=== PATIENT | female | born 1950 | race Caucasian/White ===

== ENCOUNTER 2023-12-20 10:37 | Outpatient (OUT) | payer MEDICARE, SELFPAY ==
--- NOTE | 2023-12-20 10:58 | ECG_ITS ---
[facility] Test Date: 2023-12-20 Pat Name: STEVO WATSON Department: Room: - Gender: Female Enologist: : [id number] Requested By: GABI CONRAD Order Number: [id number] Reading MD: EMELIA QUICK Measurements Intervals [place] Rate: 73 P: 32 FL: 155 QRS: -6 QRSD: 102 T: 21 QT: 365 QTc: 404 Interpretive Statements SINUS RHYTHM VOLTAGE CRITERIA FOR LVH [MEETS CRITERIA IN ONE OF: R(aVL), S(V1), R(V5), R(V5/V6)+S(V1)] Compared to ECG 08/20/2019 10:52:18 Left ventricular hypertrophy now present ST (T wave) deviation no longer present Electronically Signed On 12-20-2023 19:00:01 EDT by EMELIA QUICK
[2023-12-20 12:00] LABS: Basophils Percent Auto 0.7 % (0.2-2.0); Eosinophils Absolute Auto 0.3 10^3/uL (0.0-0.7); Eosinophils Percent Auto 5.6 % (0.9-7.0); Hematocrit 36.9 % (36.0-48.0); Hemoglobin 11.2 g/dL (12.0-16.0); Immature Granulocytes Abs Auto 0.03 10^3/uL (0.00-0.03); Immature Granulocytes Pct Auto 0.6 % (0.0-0.5); Lymphocytes Absolute Auto 1.2 10^3/uL (1.2-3.8); Mean Corpuscular HGB Conc 30.4 g/dL (29.9-35.2); Mean Corpuscular Volume 98.9 fL (81.0-99.0); Mean Platelet Volume 9.5 fL (9.5-13.5); Monocytes Absolute Auto 0.7 10^3/uL (0.3-0.8); Monocytes Percent Auto 13.5 % (1.7-12.0); Neutrophils Absolute Auto 3.1 10^3/uL (1.4-6.5); Neutrophils Percent Auto 56.6 % (43.0-75.0); Platelet Count 304 10^3/uL (150-450); Red Blood Count 3.73 10^6/uL (4.20-5.40); Red Cell Distribution Width 12.9 % (11.0-15.0); White Blood Count 5.4 10^3/uL (4.0-11.0)
[2023-12-20 12:07] LABS: INR 0.97; Partial Thromboplastin Time 27.6 sec (22.3-36.2); Prothrombin Time 10.3 sec (9.0-11.6)
[2023-12-20 12:33] LABS: Anion Gap 13.3; BUN Creatinine Ratio 29.8; Calcium 9.2 mg/dL (8.5-10.1); Carbon Dioxide 24.8 mmol/L (21.0-32.0); Chloride 104 mmol/L (98-107); Estimated GFR (African America >60 (>=60); Estimated GFR (Non-African Ame 58 (>=60); Glucose 103 mg/dL (74-106); Potassium 4.1 mmol/L (3.5-5.1); Sodium 138 mmol/L (136-145)
== END 2023-12-20 10:38 | disposition home or self-care (01) ==
LOC: PST 10:42
PROVIDERS: Visit Provider Urology
DX: Z01.812 Encounter for preprocedural laboratory examination (principal); Z01.818 Encounter for other preprocedural examination; N21.0 Calculus in bladder; R31.9 Hematuria, unspecified; K21.9 Gastro-esophageal reflux disease without esophagitis; N31.9 Neuromuscular dysfunction of bladder, unspecified; N30.20 Other chronic cystitis without hematuria
CPT/HCPCS: 80048; 85025; 85610; 85730; 93005

== ENCOUNTER 2023-12-26 09:24 | Day surgery (SDC) | payer MEDICARE, SELFPAY ==
[2023-12-20 11:32] VITALS: BP 160/78; PULSE 81; TEMP 36.3; O2SAT 95; BMI 36.2
[2023-12-26] VITALS (12 sets, daily range): BP systolic 109–170; BP diastolic 64–94; PULSE 75–94; TEMP 36.2–36.3; O2SAT 92–99
--- OUTSIDE RECORDS SUMMARY | 2023-12-26 09:40 | XMS_ITS | CCD ---
Author Organization [facility] CliniSyil Care Team Providers Care Press Feeder Broomcorn Name Role Phone STUART TERRY Admitting Unavailable TERRY, STUART Attending Unavailable TERRY, STUART Consulting Unavailable STANLEYMAIA Alvarado Consulting Unavailable Kylie Florez Primary Care Provider UnavailKYLIE Ramires Primary Care Physician [phone] KYLIE FLOREZ Referring Unavailable KYLIE FLOREZ Primary Care Unavailable Stuart TERRY Attending Unavailable TERRY, Stuart Pretty Attending Unavailable Orzech, Adele X Attending Unavailable Orzech, Adele X Attending Unavailable Orzech, Adele X Admitting Unavailable TERRY, Stuart Pretty Attending Unavailable PAULINE, KARLA Pinzon Attending Unavailable PAULINE, KARLA Pinzon Referring Unavailable TERRY, Stuart R Referring Unavailable TERRY, Stuart R Attending Unavailable TERRY, Stuart R Admitting Unavailable TERRY, Stuart R Attending Unavailable FARHAD RICE, KARLA Pinzon Admitting Unavailable FARHAD RICE, KARLA Pinzon Primary Care Unavailable FARHAD RICE, KARLA Pinzon Attending Unavailable FARHAD RICE, KARLA Pinzon Primary Care Unavailable FARHAD RICE, KARLA Pinzon Admitting Unavailable FRAHAD RICE, KARLA Pinzon Attending Unavailable FARHAD RICE, KARLA Pinzon Admitting Unavailable FARHAD RICE, KARLA Pinzon Primary Care Unavailable FARHAD RICE, KARLA Pinzon Attending Unavailable FARHAD RICE, KARLA Pinzon Admitting Unavailable FARHAD RICE, KARLA Pinzon Primary Care Unavailable FARHAD RICE, KARLA Pinzon Attending Unavailable FARHAD RICE, KARLA Pinzon Primary Care Unavailable Orzech ONYX CHIP TERRAZZO WORKER-ACTIVE DIRECTORY SYSTEMS ADMINISTRATOR-C, Adele Admitting Unavai lable Orzech ONYX CHIP TERRAZZO WORKER-ACTIVE DIRECTORY SYSTEMS ADMINISTRATOR-C, Adele Attending Dexter FLOREZ MD, KARLA Pinzon Primary Care Unavailable Orzech ONYX CHIP TERRAZZO WORKER-ACTIVE DIRECTORY SYSTEMS ADMINISTRATOR-C, Adele Admitting Unavai lable Orzech ONYX CHIP TERRAZZO WORKER-ACTIVE DIRECTORY SYSTEMS ADMINISTRATOR-C, Adele Attending Dexetr FLOREZ MD, KARLA Pinzon Primary Care Unavailable FARHAD RICE, KARLA Pinzon Attending Unavailable Asaf YORK, Adele Admitting Adele Ding Attending Dexter FLOREZ MD, KARLA Pinzon Primary Care Unavailable FARHAD RICE, KARLA Pinzon Primary Care Unavailable FARHAD RICE, KARLA Pinzon Attending Unavailable FARHAD RICE, KARLA Pinzon Attending Unavailable FARHAD RICE, KARLA Pinzon Primary Care Unavailable FARHAD RICE, KARLA Pinzon Primary Care Unavailable FARHAD RICE, KARLA Pinzon Attending Unavailable FARHAD RICE, KARLA Pinzon Attending Unavailable FARHAD RICE, KARLA Pinzon Primary Care Unavailable FARHAD RICE, KARLA Pinzon Admitting Unavailable Allergies Allergy Classification Reported Allergen(s) Allergy Type Date of Onset Reaction(s) Facility (4 sources) Nitrofurantoin; Translations: [Macrobid] Drug Allergy 5 [facility] (5 sources) NITROFURANTOIN, MACROCRYSTALS / Nitrofurantoin, Monohydrate; Translations: [nitrofurantoin] Drug Allergy Illness (finding) [facility] (2 sources) Doxycycline; Translations: [doxycycline] Drug Allergy [facility] Repository (2 sources) Nitrofurantoin; Translations: [nitrofurantoin] Drug Allergy [facility] (2 sources) No Known Medication Allergies; Translations: [No Known Medication Allergies] Propensity to adverse reactions (disorder) [facility] Repository Medications Current Medications Medication Drug Class(es) Dates Sig (Normalized) Sig (Original) acetaminophen 325 mg / HYDROcodone bitartrate 5 mg oral tablet (1 source) Opioid Agonist Start: 01-16-2019 take 1 tablet by mouth every four to six hours Hydrocodone-Aceta minophen Active 1 TAB PO EVERY 4-6 HOURS 70 14 January 16, 2019 10:18am amoxicillin 250 mg oral capsule (1 source) Penicillin-class Antibacterial Start: 06-09-2019 take 250 mg by mouth once daily in the morning Amoxicillin Active 250 MG PO Every morning June 09, 2019 11:40am amoxicillin 500 mg / clavulanate 125 mg oral tablet (2 sources) Penicillin-class Antibacterial Start: 06-08-2022 Augmentin 500 mg-125 mg Tab 1 tab(s), Oral, Every other day, 30 tab(s), Refill(s) 5, [id number], 153, cm, 06/08/22 11:23:00 EDT, Height/Length Dosing, 80, kg, 06/08/22 11:23:00 EDT, Weight Dosing Start Date: 06/08/22 Status: Ordered Calcium (5 sources) Phosphate Binder, Calcium Start: 01-14-2020 take 1 tablet by mouth once daily calcium 500 mg tablet 500 mg = 1 tab(s), Oral, Daily, Refills(s) 0 Start Date: 01/14/20 Status: Ordered calcium carbonate 1250 mg / cholecalciferol 0.01 mg oral tablet (1 source) Vitamin D Start: 06-09-2019 Calcium Carbonate-Vitamin D3 (Calcium 500 With D) 500 mg(1,250mg) -400 unit Tablet Active 1 TAB PO Daily June 09, 2019 11:40am FiberCon (5 sources) Start: 06-08-2022 take 1 mg by mouth four times daily FiberCon mg, Oral, QID, Refills(s) 0 Start Date: 06/08/22 Status: Ordered doxycycline hyclate 100 mg oral capsule (2 sources) Tetracycline-class Drug Start: 11-01-2023 End: 11-08-2023 take 1 capsule by mouth twice daily doxycycline hyclate 100 mg Cap 100 mg = 1 cap(s), Oral, BID, may substitute hyclate for monohydrate based on availability, X 7 day(s), # 14 cap(s), Refills(s) 0, Pharmacy: [id number], 153, cm, 02/22/23 10:52:00 EST, Height/Length Dosing, 80.6, kg, 02/22/23 10:52:00 EST, Weight Dosing Start Date: 11/01/23 Stop Date: 11/08/23 Status: Ordered esomeprazole 40 mg delayed release oral capsule (1 source) Proton Pump Inhibitor Start: 01-01-2019 take 40 mg by mouth once daily in the morning Esomeprazole Magnesium Active 40 MG PO Every morning January 01, 2019 2:03pm gabapentin (5 sources) Anti-epileptic Agent Start: 05-20-2020 gabapentin Oral, Refills(s) 0 Start Date: 05/20/20 Status: Ordered ibuprofen 800 mg oral tablet (6 sources) Nonsteroidal Anti-inflammatory Drug Start: 02-08-2020 take 1 mg by mouth three times daily ibuprofen 800 mg Tab mg tab(s), Oral, TID Start Date: 02/08/20 Status: Ordered Start: 01-01-2019 take 800 mg by mouth every six hours Ibuprofen Active 800 MG PO Q6H January 01, 2019 1:59pm melatonin 5 mg sublingual tablet (1 source) Start: 06-09-2019 take 5 mg under the tongue at bedtime Melatonin Active 5 MG SUBLINGUAL Bedtime June 09, 2019 11:47am 24 hr mirabegron 50 mg extended release oral tablet (1 source) beta3-Adrenergic Agonist Start: 06-08-2022 take 1 tablet by mouth once daily Myrbetriq 50 mg oral tablet, extended release 50 mg = 1 tab(s), Oral, Daily, # 30 tab(s), Refills(s) 11, Pharmacy: [id number], 153, cm, 06/08/22 11:23:00 EDT, Height/Length Dosing, 80, kg, 06/08/22 11:23:00 EDT, Weight Dosing Start Date: 06/08/22 Status: Ordered Multi Vitamin+ (5 sources) Start: 02-08-2020 Multi Vitamin+ Start Date: 02/08/20 Status: Ordered Multivitamin preparation (1 source) Start: 01-01-2019 take 1 tablet by mouth once daily Multivitamin Active 1 TAB PO Daily January 01, 2019 1:59pm 24 hr oxybutynin chloride 15 mg extended release oral tablet (5 sources) Cholinergic Muscarinic Antagonist Start: 04-02-2023 take 1 tablet by mouth once daily oxybutynin 15 mg ER Tab 15 mg = 1 tab(s), Oral, Daily, # 30 tab(s), Refills(s) 11, Pharmacy: [email or web address], 153, cm, 02/22/23 10:52:00 EST, Height/Length Dosing, 80.6, kg, 02/22/23 10:52:00 EST, Weight Dosing Start Date: 04/02/23 Status: Ordered Start: 07-12-2022 take 1 tablet by graciela once daily oxybutynin 15 mg ER Tab 15 mg = 1 tab(s), Oral, Daily, # 30 tab(s), Refills(s) 11, Pharmacy: [facility], 153, cm, 06/08/22 11:23:00 EDT, Height/Length Dosing, 80, kg, 06/08/22 11:23:00 EDT, Weight Dosing Start Date: 07/12/22 Status: Ordered Start: 01-01-2019 take 15 mg by mouth once daily in the morning Oxybutynin Chloride Active 15 MG PO Every morning January 01, 2019 1:57pm sulfamethoxazole 800 mg / trimethoprim 160 mg oral tablet (4 sources) Dihydrofolate Reductase Inhibitor Antibacterial, Sulfonamide Antimicrobial Start: 02-22-2023 End: 04-18-2024 take 1 tablet by mouth every other day Bactrim D.S. 800 mg-160 mg Tab 1 tab(s), Oral, Every other day for 90 day(s), 45 tab(s), Refill(s) 3, [facility], 153, cm, 02/22/23 10:52:00 EST, Height/Length Dosing, 80.6, kg, 02/22/23 10:52:00 EST, Weight Dosing Start Date: 04/24/23 Stop Date: 04/18/24 Status: Ordered Vitamin D3 Gummies (4 sources) Start: 02-22-2023 Vitamin D3 Gummies Daily, Refills(s) 0 Start Date: 02/22/23 Status: Ordered Completed/Discontinued Medications Medication Drug Class(es) Dates Sig (Normalized) Sig (Original) cephalexin 500 mg oral capsule (1 source) Cephalosporin Antibacterial Start: 01-01-2019 End: 06-09-2019 Cephalexin (Keflex) 500 mg capsule Discontinued 500 MG PO Q48H January 01, 2019 1:59pm June 09, 2019 11:38am diazePAM 5 mg oral tablet (1 source) Benzodiazepine Start: 01-16-2019 End: 06-09-2019 take 5 mg by mouth four times daily Diazepam Discontinued 5 MG PO Four times daily 40 January 16, 2019 10:18am June 09, 2019 11:38am Problems Problem Classification Problem Date Documented Date Episodic/Chronic Calculus of urinary tract (12 sources) Calculus in bladder; Translations: [History of calculus of kidney] Onset: 08-20-2019 Episodic Esophageal disorders (6 sources) Gastro-esophageal reflux disease without esophagitis; Translations: [Gastroesophageal reflux disease] Onset: 08-26-2019 04-16-2019 Chronic Genitourinary symptoms and ill-defined conditions (12 sources) Gross hematuria; Translations: [Frequency of micturition] Onset: 08-26-2019 Episodic Other diseases of bladder and urethra (1 source) Neuromuscular dysfunction of bladder, unspecified; Translations: [NEUROMUSCULR DYSFNCTION BLADDER UNS] Onset: 08-26-2019 Chronic Other diseases of bladder and urethra (8 sources) Flaccid neurogenic bladder; Translations: [Flaccid neuropathic bladder, not elsewhere classified] Onset: 06-08-2022 Chronic Other screening for suspected conditions (not mental disorders or infectious disease) (2 sources) Patient encounter status; Translations: [Encounter for screening mammogram for malignant neoplasm of breast] Onset: 04-17-2023 Episodic Prolapse of female genital organs (5 sources) Cystocele 04-16-2019 Chronic Residual codes; unclassified (1 source) Acquired absence of both cervix and uterus; Translations: [ACQUIRED ABSENCE BOTH CERVIX AND UTERUS] Onset: 08-26-2019 Episodic Spondylosis; intervertebral disc disorders; other back problems (1 source) Neurogenic claudication; Translations: [Spinal stenosis, lumbar region with neurogenic claudication] 01-16-2019 Episodic Unclassified (5 sources) Asymptomatic microscopic hematuria 01-11-2020 Urinary tract infections (6 sources) Other chronic cystitis without hematuria; Translations: [Chronic cystitis] Onset: 08-26-2019 09-21-2019 Chronic Results Test Name Value Interpretation Reference Range Facility Outside Recordson 12-24-2023 Outside Records [id number] 1#[id number] [facility] Outside Records [id number]#1.00OTGTIFF [facility] Ambulatory Patient Summaryon 12-23-2023 Ambulatory Patient Summary [address], [address] - Visit Summary For ALLISON WATSON Age: 73 years Sex: FEMALE : 1950 Address: [address] [place] [address], [id number] Home: Work: -- Primary Care Provider: KARLA FLOREZ MD Race: White Ethnicity: Not or Language: Indonesian Health Plan: 1?MEDICARE, 2?[employer] AAR, 3?MEDICARE Reason for Visit: Pt. comes in for medical clearance Prescription Information: If you have been given a prescription for narcotics, seek immediate medical attention if you have any difficulty breathing or any sudden status changes such as confusion and sleepiness. If you or anyone you know is experiencing suicidal thoughts, mental health, alcohol and/or drug addiction problems; contact the [facility] 15/10 Crisis Hotline -Text 8CSJI lx 490983. Follow-Up Information With: Address: When: KARLA FLOREZ MD [facility] [address] [place] [address]/ [address] [place] [address] , only if needed Future Appointments No Future Appointments Scheduled Future Orders No future orders Additional Goals and Instructions: Vitals and Measurements this Visit (last charted value for your 12/23/2023 visit) Vital Signs This Visit Peripheral Pulse Rate: 80 bpm Pulse Site: Pulse Oximetry Systolic Blood Pressure: 137 mmHg Diastolic Blood Pressure: 68 mmHg Cuff Location: Left arm SpO2: 97 % Measurements This Visit Height/Length Measured: 155 cm Height/Length Measured (inches): 61.02 in Weight Measured: 84.82 kg Weight Measured (lbs): 186.996 lb Weight Dosin.820 kg BSA: 1.91 m2 Body Mass Index: 35.3 kg/m2 [place] Body Weight Calculated: 47.854 kg BSA Measured: 1.91 m2 Diagnoses This Visit Elevated blood pressure reading without diagnosis of hypertension (R03.0) Laboratory or Other Results This Visit (last charted value for your 12/23/2023 visit) No Laboratory or Other Results This Visit Medications and Immunizations Administered During This Visit No medication administered during this visit All Known Current Prescriptions and Reported Medications New Prescriptions this Visit No new prescriptions for this visit Prescriptions furosemide 40 mg oral tablet (furosemide) 3 refills authorized Instructions: 1 tab(s) Oral Daily as needed for leg swelling gabapentin 300 mg oral capsule (gabapentin) Take 1 cap(s)(300 Milligram) Oral (given by mouth) 2 times per day, 1 refills authorized Instructions: To last 90 days. HANDICAP PLACRONALDO (Misc Rx Supply) 0 refills authorized Instructions: FOR 5 YEARS ibuprofen 800 mg oral tablet (ibuprofen) Take 800 Milligram Oral (given by mouth) 2 times per day, 0 refills authorized omeprazole 20 mg oral delayed release capsule (omeprazole) Take 1 cap(s) Oral (given by mouth) every day, Home Medications Multiple Vitamins oral tablet (multivitamin) Take 1 tab(s) Oral (given by mouth) every day oxybutynin Take 15 Milligram Oral (given by mouth) every day Oyster Shell Calcium with Vitamin D (calcium-vitamin D) Instructions: one tab po daily triamcinolone 0.1% topical cream (triamcinolone topical) trimethoprim 100 mg oral tablet (trimethoprim) Instructions: 1 tab every other day Vitamin B12 1000 mcg oral tablet (cyanocobalamin) Take 1 tab(s)(1,000 Microgram) Oral (given by mouth) every day Preventing Hypertension Hypertension, also called high blood pressure, is when the force of blood pumping through the arteries is too strong. Arteries are blood vessels that carry blood from the heart throughout the body. Often, hypertension does not cause symptoms until blood pressure is very high. It is important to have your blood pressure checked regularly. Diet and lifestyle changes can help you prevent hypertension, and they may make you feel better overall and improve your quality of life. If you already have hypertension, you may control it with diet and lifestyle changes, as well as with medicine. How can this condition affect me? Over time, hypertension can damage the arteries and decrease blood flow to important parts of the body, including the brain, heart, and kidneys. By keeping your blood pressure in a healthy range, you can help prevent complications like heart attack, heart failure, stroke, kidney failure, and vascular dementia. What can increase my risk? An unhealthy diet and a lack of physical activity can make you more likely to develop high blood pressure. Some other risk factors include: ? Age. The risk increases with age. ? Having family members who have had high blood pressure. ? Having certain health conditions, such as thyroid problems. ? Being overweight or obese. ? Drinking too much alcohol or caffeine. ? Having too much fat, sugar, calories, or salt (sodium) in your diet (more content not included)... [facility] Patient Handouton 12-23-2023 Patient Handout Preventive Health Preventing Hypertension Hypertension, also called high blood pressure, is when the force of blood pumping through the arteries is too strong. Arteries are blood vessels that carry blood from the heart throughout the body. Often, hypertension does not cause symptoms until blood pressure is very high. It is important to have your blood pressure checked regularly. Diet and lifestyle changes can help you prevent hypertension, and they may make you feel better overall and improve your quality of life. If you already have hypertension, you may control it with diet and lifestyle changes, as well as with medicine. How can this condition affect me? Over time, hypertension can damage the arteries and decrease blood flow to important parts of the body, including the brain, heart, and kidneys. By keeping your blood pressure in a healthy range, you can help prevent complications like heart attack, heart failure, stroke, kidney failure, and vascular dementia. What can increase my risk? An unhealthy diet and a lack of physical activity can make you more likely to develop high blood pressure. Some other risk factors include: ? Age. The risk increases with age. ? Having family members who have had high blood pressure. ? Having certain health conditions, such as thyroid problems. ? Being overweight or obese. ? Drinking too much alcohol or caffeine. ? Having too much fat, sugar, calories, or salt (sodium) in your diet. ? Smoking or using illegal drugs. ? Taking certain medicines, such as antidepressants, decongestants, control pills, and NSAIDs, such as ibuprofen. What actions can I take to prevent or manage this condition? Work with your health care provider to make a hypertension prevention plan that works for you. You may be referred for counseling on a healthy diet and physical activity. Follow your plan and keep all follow-up visits. Diet changes Maintain a healthy diet. This includes: ? Eating less salt (sodium). Ask your health care provider how much sodium is safe for you to have. The general recommendation is to have less than 1 tsp (2,300 mg) of sodium a day. ? Do not add salt to your food. ? Choose low-sodium options when grocery shopping and eating out. ? Limiting fats in your diet. You can do this by eating low-fat or fat-free dairy products and by eating less red meat. ? Eating more fruits, vegetables, and whole grains. Make a goal to eat: ? 1??2 cups of fresh fruits and vegetables each day. ? 3?4 servings of whole grains each day. ? Avoiding foods and beverages that have added sugars. ? Eating fish that contain healthy fats (omega-3 fatty acids), such as mackerel or salmon. If you need help putting together a healthy eating plan, try the DASH diet. This diet is high in fruits, vegetables, and whole grains. It is low in sodium, red meat, and added sugars. DASH stands for Dietary Approaches to Stop Hypertension. Lifestyle changes ? Lose weight if you are overweight. Losing just 3?5% of your body weight can help prevent or control hypertension. For example, if your present weight is 200 lb (91 kg), a loss of 3?5% of your weight means losing 6?10 lb (2.7?4.5 kg). Ask your health care provider to help you with a diet and exercise plan to safely lose weight. ? Get enough exercise. Do at least 150 minutes of moderate-intensity exercise each week. You could do this in short exercise sessions several times a day, or you could do longer exercise sessions a few times a week. For example, you could take a brisk 10-minute walk or bike ride, 3 times a day, for 5 days a week. ? Find ways to reduce stress, such as exercising, meditating, listening to music, or taking a yoga class. If you need help reducing stress, ask your health care provider. ? Do not use any products that contain nicotine or tobacco. These products include cigarettes, chewing tobacco, and vaping devices, such as e-cigarettes. Chemicals in tobacco and nicotine products raise your blood pressure each time you use them. If you need help quitting, ask your health care provider. ? Learn how to check your blood pressure at home. Make sure that you know your personal target blood pressure, as told by your health care provider. ? Try to sleep 7?9 hours per night. Alcohol use ? Do not drink alcohol if: ? Your health care provider tells you not to drink. ? You are , may be , or are planning to become . ? If you drink alcohol: ? Limit how much you have to: ? 0?1 drink a day for women. ? 0?2 drinks a day for men. ? Know how much alcohol is in your drink. In the [place] one drink equals one 12 oz bottle of beer (355 mL), one 5 oz glass of wine (148 mL), or one 1? oz glass of hard liquor (44 mL). Medicines In addition to diet and lifestyle changes, your health care provider may recommend medicines to help lower your blood pressure. In general: ? You may nee (more content not included)... [facility] Coding Summaryon 12-17-2023 Coding Summary HTMLBase 64 YyherjxtMXk2kMv+PGhl YWQ+AT2TWYQuY74hgBAs wH4dF4SJBKsSQsjnSYTM TDwLZcLqniImEB6nxJLs ZXJu IC8+KK6eWCNbCvtrnVOv f1J6kSK0H30qgb3eFYls zHW8BVPpSrUbvnpfi1yd qHe8MSmmCpjgFqHz XFAyoV25CCW1dK02Fl55 xVGjpMDvk3qitEg0FaAp DBBwLDU5yRajFBfgw8Mt VVWyW20bqKBxf9V4 IGNvbGxhcHNlOyBlbXB0 zX4mIKzbeshps3ifsaci Mnv8mc92kEYpt0D8uYI7 N6AmzoL2SURqrMDp MzgivYXHcA0louiot2gd euyfWdXaEYPfKVb5GHc0 PYUdiSawCqSaGQ84RYF3 JLMwkhNiB9BrRGVt iXdwXjZ8h4C3Bf4ZQ4LJ HhkcF2TGCYYVQTaxrZW+ QN52nd13W0OkCyqkMpd6 VKZtOCT3xLY4jW3c GIDtXWkar1U9xXG5U3Ue slKnll2tg0bqBBXgTFnw E81msKNov4M7JSDfuFD5 TTQbsQgrDlTgtJ20 Oyc+JTVpjMxue9MwSmqw n1ipm4xmyTo7IrsiKIBx bgFsfAyoGVG1l9IoAe9z RSLcrRO0dWD1qC6y OcFaFyY2OHsxZ257JdYa jHEmCwptA02aU4SzlKQ+ OYCkUae0QBNexFocZC6q R1LjOOMnjandxMAq qDvaXA9rUHUwsworLWVe dJ8aYQTaM3t7YxJhMbS3 QVibT8NjGECwvnblGr12 lG4jQsCiRhQ9YNib H3TmxxO1XOYqaHAyNZmr UMF4K88mq5D0NKIbAEYd BCR2fUR5qO7adKmkfhkc bGVmdDsgdmVydGlj SNibTXolA447DWGopYip PkNvZGluZyBEYXRlOiAg MDkvMjQvMjAyNDwvdGQ+ TXDgMVG0bQynJUXy qBIoGAclWs5sjGagdEvj IG3aLCBxcdfgJMFcpE6g MXMmlJTqyKukSV7sDOQa qxuhi966AkEgRWP5 EVThjKAeK1YouP6iMfIb GXYdNPTaZ4YelVYgFNun L992PObpJqL0YKOzadVc A1NoLRHniDzgRyV3 e3H5Rc8Sn6LopbepD4My tKIzHsPeEircXYe0J5Vu PjwvdHI+CE31FTVrQL48 WFu5XHB7kXyrHCsd CZWwG3FhpF8xHlZiDRIe ZGRkOyc+PHRhYmxlIHdp ZHRoPScxMDAlJyBzdHls XB9qDk9nJATjKRTe xEptdMHjKyHkn2reNPAp XUvySB7isKssX8UrzDX2 SHMqp0f7Bz83H24dB9Rh dXA+LUBcrKL9dFV4 eP6iAuScDpR1WFsqZ766 HzMycNChJknsm5swn2vd nZw0KjC2PDGefuWdsGbf UDZ5p0WwEl81C64e IHdpZHRoPSIxNSUiIHZh bPxcba7rkE3hAa9+PGNv yBY7tQC4dU6lZkCwBwE6 FFbuP495XiNvaZEm Ndqfp4nrz0okvOw2ViYr ECUetmWrvUiwLZZ9m0Fc Es66B5CrcFnym4AfPjb6 fn97vXBsp5W7gLH5 D8YvIGXvjrbdrSMhpUct IJ7xDJEdqlmiASTupN3l QUSsM7z8RmZkWaL7EVbr D4SfzlA5EYDvoXQd HMGrpKPDtQ4uqsgrq4nr oxwqRcGlWFEoJKf2ILw8 OOOzvSgtQiHgLWV3IrA8 QVG4sLOetP4otVbu tqgyuT6uSnn+NCI0fOOx cBNUHB2dGynucOH+PHRk SAW6fMjtROrcESYtsE2c ZVWdO9p7YyPrJbX6 TPsfZ5PcwqF7QNMnaCBr ORZqtIYBcM7fqtrft4ll xixnXaCgNCFvERg2RAg1 LWFsaWduOiBsZWZ0 SoK0HDS7pELucY4stYwr hlcygV3tVoy+QmlydGgg EVP2EAa2I9RzOlw2PUTz xVwrJD3ycKZdOLzr Yt2jdFmsaBpoXB1gIQFv hfdia747TpFlm0gyLRJz wNMzKBysIWZ3H16jj7W3 TRWnHXZiVVL9dUE6 gE4ewKjgqkxseYOedSrm fxBinGyvLYotCPtxF767 XSAjmQrxUdMvMGw3C7Kt Goy3ZXBasHeeFR8l dLOoNIlxTb1ohCwupGdh FY0uRUIthqvdw504RaCi u4ihQLPbsQXxUVaqDVJ0 S15jq1K5HHOuNQQq KUP1wZL8eA8sdZyhoyem bGVmdDsgdmVydGljYWwt NBybJ617OOEanLmoOsMp hLs2V8PbRmx3YMCj aBigOF0zpLVsSAaoUd7x iIbqzNveCN2pDXTpvhwt b084ErHdv4jxLDGayDSm OCpqHOT4D51hc3M9 AGUrKYDtCEO2pLM7vK4k bGlnbjogbGVmdDsgdmVy nQfrNSsoZSdcA493CYOs cDsnPlBhdGllbnQg OXnnJIn2B8PmKbuzzBF+ ZI82HJTjME58cPVyqIZm d9qlgOr3CcGbMBBgAQB9 jGczWSxqj4QsYDOd H92cmBArg7U2AYUwbGcm vQRcWwDcwCJ2yK1kRUci ckqzp4svllipOwbdu3pz ai68fY02Z06hLYtx ZHRoPSIzMCUiIHZhbGln wj7ziA6nZo8+PGNvbCB3 sPI4dF7zXDWrPpN1PPor C566XyTiaUMlGkms t5xqc0rwhRq0JvM4ZGDw cmIyhBuwFCS8x1QfRh03 D17uIKydEXNsCALmTYUc JBSkrMtdsl3btQ3e Ii8+OWXzyLJ2bCR1qL5n VdMdUyV3PWlxZ260OsXd oDEiXoqhK70yH0CzrCS+ WHLzHxz5ZMGvxQhz NN9lvNMwVKlmDj6vGKQ4 GxXrGzKzJCpoG7UsWCSw dccteghbsNO2XDKlMQLf fZ59Nd7wkFluFIEg ePPUlD5qndhmq7biltgp TyZmFNNeFAu0MBu5GSHp zSagVqJiYQA0AjP5LCL0 fTKcaV3hlRyiabas iF9eL0OgFXUquvkbWe43 vB4sMeLaUkY3FAwgAzk+ PKLCH7JZMJDMHDXQGqSR CH42KP10cZBii4Q4 yYU2Z5FkGFTbtdjrbuos vFW0GYEmVDYisS09tTWb JIpdQh1uu9T8y110QSRs FJWhuO97Ee3dmQgl OQBjmWYOiG5sxabkw2qu xuxjPvJiTFPzMMr2OEx6 ZIGhyIegBaSzMEL3ZkL7 IJJ0wRXcyM3baZib xjpeeC3vZlm+MDUvMDUv SZn5HOxvhQS+PHRkIHN0 jIxoUFbfMFTbdH6lTIAx R5r9AkXbOwA0NXfb T4YkQPFfjjvrRy81sT1v AoQlLsR8AVkyE9QhzeE6 AFStiPQuNQnxCWD2D09l i2T4CDQjQGQfVSJ5 cLY2vZ4rfPmhwhgkaECx dDsgdmVydGljYWwtYWxp E212MPKbzYaqDps2WJuw JEYkOJ88VV77bRGw l9C7sXR6H2FwTLPwznpa iojiaIR8MDWaYMWmcH85 jHWjVXajRj8jw2J1f738 LKNiVDIqrQ23Mi9x oJobOBAogBEDfF9jeuzo p7fviliqVrGdLRUxHTs8 VQg5SCYarKedChCvABE1 QaJ1PFE1fGTxnU9e aKrrfqqvuA4oYcq+RkVN MQwSCA97UP18zKBfu6M7 xAQ3K1CxOETztqswqmtl fVW9CPLuLCKtlY00 uVGwOVqfIb1ew3Q5f647 WGWjDQJsfN64Wl1yuBrj CJAzwKKHfV1kvoysf5sy cjogIzAwMDAwMDt0 KPp9QIRclErlBtGzUPR2 PrK2QLR4pPLevH0gwIyy majinQ7rOnr+J2N5D4Ny PjwvdHI+CJ61NBJy LA17wVBezTJds0yreUd6 ZdTlCTTwRSX8sSbcMTru g0OuUBQbF42fvLCej2Q7 IGNvbGxhcHNlOyBl mAP2oD8nUQztaadwp5xn feaxPcimg8ngic22oQ78 D33kGAvmAPMiJHYjZVWm ECRkqRvgkp3zuT2a Ii8+GXXtnCX0fRV7rZ1l LfReTgN1DLdiP331QkGh kOWlXgxtc4kuh7wldIl6 IjIwJSIgdmFsaWdu FVB5f4SlHb93O14eGZsc ZHRoPSIyMCUiIHZhbGln zo6ngE1pRf3+LP4rs5xt iv24uL61iAV+PHRk RKR9nKiaGQmuISXeiB5c ARksJsR4KUCdZxCprT84 iHGeXCjuCg6gxHimcTdd FW9mQDNqelkxs582 TuNld4zuXITarNWfHNyq AWR8T89dx1E7SMHiJDSo BVU4uUR8jB0hjCglumdt bGVmdDsgdmVydGlj TWnmWMyaU763KEVozGvo DrLmtVKkL4lkblWVMM9r OjwvdGQ+CBKtLEP8lPdr JWapJSOelJ3rCXVj F8j6LrRuQqR1ENqrE6Tu yxA2CUIxiTQzHXQzfMJR oS5yyiarm3eqrvvyRbIb HMZzJZn5VKk6ZTLv zUzjDtCmJIS9VxA1NSN8 yQKknW4pzWnukgvggM2n Oyc+RklOOjwvdGQ+PHRk DRV8nOixAKhfEXZb tB5eMIDnT3p6WnHlXdE8 OQubN0RotoY2MJPgyKOh JOAppRWNjK2sriuwg7vh cjogIzAwMDAwMDt0 VVj0QJCdgPvuKyXxTEU6 NhC5KXF4kTQrmN8nvTfd trdjsF7dAmp+TVJOOjwv dGQ+AHCfIAD1fGvz XHrkOQAkpV4gEBIoO1o9 IdAgCnG5WDcpM2BvfkN7 PGZmmYUoHYGklDCXqI3o etilg4tvvachZwNw ZANdOLg7PGz8QCXnnOnt ZsYsWZA2YpQ7LZM9hDHp hZ7aiFstaaoxdS8iGng+ RST3HXW9JM76KA38 T4MgYbkcdHYlrKK+PHRh YmxlIHdpZHRoPScxMDAl HcGkgXgtPS7pSt2wODSc LWNvbGxhcHNlOiBj b2x (more content not included)... [facility] Main OR Intraoperative Recor don 12-17-2023 Main OR Intraoperative Record Main OR Intraoperative Record IntraOp Document Type FTURO Summary Primary Physician: Stuart TERRY MD Finalized Date/Time: 12/17/23 13:27:29 Pt. Name: VINHESTELLEALLISON/Sex: 1950 Female Med Rec #: [id number] Physician: Stuart TERRY MD Financial #: [id number] Pt. Type: O Room/Bed: / Admit/Disch: 12/17/23 12:35:20 - Institution: Case Times FTURO Entry 1 Patient Times In Room 12/17/23 13:09:00 Out Room 12/17/23 13:26:00 Procedure Times Start 12/17/23 13:14:00 Stop 12/17/23 13:19:00 Anesthesia Times Last Modified By: Kelley GAMBLE, Alysa Smith 12/17/23 13:19:50 Case Attendance FTURO Entry 1 Entry 2 Entry 3 Case Attendee HOUSTON RICE, Stuart Benson RN, Alysa Vasquez CST, Jeannie Smith Role Performed Surgeon - Primary Turn Down Attendant - Primary Scrub - Primary Time In 12/17/23 13:09:00 12/17/23 13:09:00 12/17/23 13:09:00 Time Out 12/17/23 13:26:00 12/17/23 13:26:00 12/17/23 13:26:00 Procedure CYSTOSCOPY LOCAL(.) CYSTOSCOPY LOCAL(.) CYSTOSCOPY LOCAL(.) Comments Last Modified By: Kelley GAMBLE, Alysa Benson RN, Alysa Benson RN, Alysa Smith 12/17/23 Elizabeth P 12/17/23 Elizabeth P 12/17/23 13:19:54 13:19:54 13:19:54 Surgical Procedures FTURO Entry 1 Procedure Description Procedure CYSTOSCOPY LOCAL Modifiers . Surgeon Description CYSTOSCOPY Primary Procedure Yes Primary Surgeon Stuart TERRY MD Start 12/17/23 13:14:00 Stop 12/17/23 13:19:00 Anesthesia Type Local Surgical Service Urology Wound Class 2 - Clean-Contaminated Last Modified By: Kelley GAMBLE, Alysa Smith 12/17/23 13:19:53 General Case Data FTURO Pre-Care Text: Classifies surgical wound, implements aseptic technique, initiates traffic control Entry 1 Case Information OR URO 1 FT Case Level None Wound Class 2 - Clean-Contaminated Specialty Urology Preop Diagnosis BLADDER STONE, HEMATURIA Postop Same As Preop Yes Postop Diagnosis BLADDER STONE, HEMATURIA Outcomes Met? Yes Last Modified By: Kelley GAMBLE, Alysa Smith 12/17/23 13:19:58 Post-Care Text: The patient is free from signs and symptoms of infection EU IntraOp - FTURO Pre-Care Text: Implements protective measures prior to operative or invasive procedure, confirms identity before the operative or invasive procedure, verifies operative procedure, surgical site, and laterality Entry 1 EU Perioperative Protocols Procedure(s) CYSTOSCOPY LOCAL(.) Patient Identity Birthday, ID Band Verified (select at Check, Patient least 2): Participation Consents / H and P H&P, Surgery/Procedure Operative Site N/A Verified Consent Marking Verified Surgical Site Yes Laterality Verified n/a Verified Procedure Verified Yes Correct Patient Yes Position Verified Availability Equipment, Medication Time Out Stuart TERRY MD, Verified (If Participants Kelley GAMBLE, Alysa Applicable) Pedro Paiz CST, Kimberly A Time Out Complete 12/17/23 13:12:00 Allergies Reviewed? Yes Allergies Reviewed Self/Patient With Body Position Frog Legged Prep Area PERINEAL AREA Prep Agents Betadine Solution Skin. Condition Unable to Visualize Description PARTIALLY CLOTHED Vitals - EU Blood Pressure 149/92 Pulse 85 bpm Respirations 18 br/min SPO2 96 % I&O - EU Outcomes Met? Yes Last Modified By: Alysa Benson RN 12/17/23 13:12:53 Post-Care Text: The patient is free from signs and symptoms of injury caused by extraneous objects Sign Out FTURO Entry 1 Before Patient Leaves OR Nurse verbally Yes Nurse verbally Yes confirms with the confirms with the team the name of team that the procedure(s) instrument, sponge, recorded and needle counts are correct (or N/A) Nurse verbally n/a Nurse verbally n/a confirms with the confirms with the team how the team whether there specimen is labeled are any equipment (including patient problems to be name), if applicable addressed Sign Out Complete 12/17/23 13:19:00 Last Modified By: Alysa Benson RN 12/17/23 13:19:52 Case Comments Finalized By: Alysa Benson RN Document Signatures Signed By: Alysa Benson RN 12/17/23 13:27 Normal [facility] Main OR Preoperative Recordo n 12-17-2023 Main OR Preoperative Record Main OR Preoperative Record Holding Area Document Type FTURO Summary Primary Physician: Stuart TERRY MD Finalized Date/Time: 12/17/23 13:09:04 Pt. Name: ALLISON WATSON Adore Peterson/Sex: 1950 Female Med Rec #: [id number] Physician: Stuart TERRY MD Financial #: [id number] Pt. Type: O Room/Bed: / Admit/Disch: 12/17/23 12:35:20 - Institution: Case Times Holding FTURO Pre-Care Text: Verifies consent for planned procedure, identifies individual values and wishes concerning care, includes family members in perioperative teaching Secures patient's records' belongings, and valuables, maintains patient's dignity and privacy, and maintains patient confidentiality Entry 1 In Holding 12/17/23 13:02:00 Outcomes Met? Yes Last Modified By: Maia Vasquez LPN 12/17/23 13:02:55 Post-Care Text: The patient participates in decisions affecting his or her perioperative plan of care The patient's right to privacy is maintained Surgery Checklist FTURO Entry 1 Patient Birthday, ID Band Procedure History and Physical, Identification: Check, Patient Verification: Surgical Consent, With Participation Patient NPO after Midnight: n/a Personal Items: Glasses Limitations: up with assist Complaints of Pain: No Skin Integrity Intact, Richards, Warm, & Dry Vitals - EU Blood Pressure 149/92 Pulse 85 bpm Respirations 18 br/min SPO2 96 % Additional None Specimens Collected Last Modified By: Maia Vasquez LPN 12/17/23 13:04:01 Finalized By: Maia Vasquez LPN Document Signatures Signed By: Maia Vasquez LPN 12/17/23 13:09 Normal [facility] Operative Reporton Operative Report Operative Report Patient: ALLISON WATSON Age: 73 years Sex: Female : 1950 Associated Diagnoses: None Author: Stuart TERRY MD Procedure Operative Information Details: Date/ Time: 12/17/2023 13:27:00. Pre-Op Dx: Gross Hematuria - R31.0, Hx of UTI's - Z87.440, Incomplete Bladder Emptying - R39.14. Post-Op Dx: Same. Anesthesia Type: Local. Procedure: Local Cystoscopy. Complications: None. Risks/Benefits/Infor med Consent: Surgical risks, benefits, details of the procedure have been explained to the patient, Full informed consent has been obtained. Intraoperative Information Prepped: Patient is brought back to the endoscopy suite, Patient is placed in modified dorso/lithotomy position, Patient prepped in the usual fashion with Betadine solution, 2% Xylocaine Jelly is placed per Urethra, After waiting several minutes the Cystoscope is introduced. The Urethra is: Normal. The Bladder is: Abnormal, Friable on the floor. Blood clots noted. Sizable bladder stone noted. Measured at 2.8 cm by KUB., No bladder tumors.. The ureteral orifices: Show efflux of clear urine. Devices Implanted: None. Removal: Cystoscope is removed, The patient tolerated it well. Postoperative Information Discharge: Patient is discharged home with antibiotic coverage, Follow up arranged. Plan for cystolitholapaxy under anesthesia.. Normal [facility] Comment on above: Result Comment: Elec tronically Signed By: HOUSTON RICE, Stuart Morataya\Date and Time Signed: 12/17/23 13:28 EDT Coding Summaryon 12-11-2023 Coding Summary HTMLBase 64 GcyrjpowTEr4iDg+PGhl YWQ+HL4ZKOJoD21amFMm aU7zH3DZJUiBOzbaBEIU WDgJInGrnkWgZM0loVNh ZXJu IC8+VC3tUFWfVhayyWUk j7E0fVZ7I73awm2xHXlw rBV2QEKvWbUvrdnea5jh aDt6MShuDeiuOrZe MPYddU55HEQ9nX78Ki17 oBJhwUOpn1ukaAu8DcBu LREhDNT6lSndLYcvs7Do HBDpW57mrKXir9X2 IGNvbGxhcHNlOyBlbXB0 nG7eRXybiqtlu8ngwhwh Nzv2zk18mKPql0X2wDG5 Q8TxyiH9YKVkrUUk DxxpuLHDlA3bespbh8gy ooolNbJsSHOeVLw7EZf9 SVKihQdbGyRhRS44JXM8 USYgsxQbD1LyTTPb vNwbJzO8a7Y5Fq0SO0DO ZwqyH2NUKYPGZFhxrNN+ TT07vg70J0SgAbhiEgq6 QVYoUNK2rKV6mH0f QGMmYDwad2B9gGL2O7Hr qvKjes8gb4lqZTRuRKfc Q41ucYQqa8O6AOAcoKQ7 PZVfvEowWqHygE98 Oyc+YUDmqEpmb9LjNbyr u6iyr9xqiVk0VknvNZXf qzAxiZrlUPE6i6RcTd1s UBItkBX3fBE4dV2v YvElExI9QMsnT290UyFf wMGjLwfhO56lR0NqdSU+ TDHwDvl5CERajBlqPH5e N3GjJQObcrufnTSp fNhxUZ8zAJSyfmlwCKRb cT1wSNHeU3g9SdUgKyF7 KFaaY2OtIBXjodvwVd93 dC5rBeFjCuF8SNsj D0EolrX4LNLspNPwIFom ETW7V74we1S3TDTmBVGo PLA2rHY9qP7ccEsbwolj bGVmdDsgdmVydGlj ZZziZOyvU237XDRlnHxt PkNvZGluZyBEYXRlOiAg MDkvMTgvMjAyNDwvdGQ+ NDFaXOE8bHeaCEVl sIRdISfqQg7guZweiFhf LJ9pPDYmxtfkDSAufV4t AFXdqDRlzNxqDA7kKVLr pkqcs711SaVvZSU3 ZLXixBEfD8ZfwF8rJeXb RTWxYIUgC5SmuQQlPWje F739MSwjNrC6OYOceePz B2GrHLEceAavHyW5 u9J9Ux5Es4TmujocS4Ty kJPsXjIjKfxlRCt2D3Kw PjwvdHI+FI48OWXfYF25 RQj5WEW1xMhbTXch PVZgJ7ApcN5tYpRnKFYh ZGRkOyc+PHRhYmxlIHdp ZHRoPScxMDAlJyBzdHls RS5mFi9hIZNxEFLk pXxwdYSeWwLlb9yhKLRp INgmXM0rvZlzE0TttVK0 NQJbi8g5Sv29U22wO2Sm dXA+CIHbnBC5gAZ1 fU5hJwRoCcN8PBkeZ142 BpVknHXoNcsjl0ztw0zb hMg5DrX6KXCehbHfkMvh ZEG9h2IyPv22K69k IHdpZHRoPSIxNSUiIHZh eWdlpi6hzU0nZl5+PGNv hAW7dLX4rW8sMdVrAbV8 NDkcY665LtQppONy Jorpg7bek7xwsGp1TdPx MJCwzeWexQrqFBU8j2Ee Jb49P3IqeCwwt6YzXlh6 cz92zSZuw1T3lDQ9 J1RaJBBfvwcduUCqpCwf SM0hENHeqkqbUNXggB3s PRMqX4z0FnKdTfX8VAwh B4NirqD2JKApcDHm IYZrmVLEkF7arufif4wq utsoCpSbAZHyBLa5NNl7 IIKkrHdtZoOoZDD2JwO3 NDU3dNMjlI3auBnq ihjyzA6fCor+QCL6yDUd xXOHFO3aUbfclPN+PHRk HZY6mDhnPJauWCHkuP9a XATlU7u4UyMfEbA9 RHqhR4YcroF2DXFdsPUv KAQmbMWJkH4qwtbwd9gm yqxnJoPvBQOyILt3CRl1 LWFsaWduOiBsZWZ0 IaU3DBV5hAIvlF3nhPsi woghiB9hTpp+QmlydGgg GCL3ZLc7D5YtCed2FNOh tFlrAX1aqIHlWJyu Ux9dmJqfiEapUK8rBWEj gilci026RcVbx3nvJZLh dLJnNOagQYJ9T82zs0F3 WZFbZOMdUEH9rLU1 dC9hoQlxckrqcMZatLrv rlHspZbjEPlwVNtnB461 WLFxiLxjPwZlWHw2R7Yw Qxq2SBYmgRywCP2i iHLcMYtwKc3lnSrmeDas BY2lISZciennc184RpYp z1reFZBkaYMfPYbtRQD7 H96je8S9ACXkMUPn CDJ1iBW7cR3pvBlocjsy bGVmdDsgdmVydGljYWwt YDbvM648JTOmtXucSxZr xTl3W1RlAqs1BUKv pXzhNY3ucYApEFoxVa8c oGaumHpdXM4wBRQmtuhh j187ZjFft5jrQMPkaQMv FOilFCZ8S76ic9Y6 YVIoGGJgDRD6aYI6vR6h bGlnbjogbGVmdDsgdmVy cOxwDYqiCSktA478ZZCp cDsnPlBhdGllbnQg SLugDWq8C8VkLqrqjYP+ IM06TRCwEO49eSNqgCZh l0tvtNy4DpZhZODpOEL4 bRbcSTucq3LeZFTi R03tqXOyz8B2EJZgaIue bJObYtQvrDX8eG2hWExa hocxo8oriwlyRekzv6xe oi08lQ67T75wPXmw ZHRoPSIzMCUiIHZhbGln eq6hpL7jBy8+PGNvbCB3 vCK5dE4gUDMnThY0AHkr I053JuLsxZQiHxfm q8wro3cshJe5XfS1XWWp nvGscTobYOF6p0BjTv95 J59uZRriVAWkAWJpPDTg DUTnxFarvi0cmU9b Ii8+QCXxwUT9iOO7xM7p YsWnLvL4TYbiP925QlVc xZWuRvraY40aK3HywKK+ GEEdStr8OPKtqHfm ZF5rdOZjWRbzRj1qOUQ4 JhKkOlDfAOurV1NwFVTx hinicnjxxIQ6RMGmZNLn oZ40Zj5bhQmnUQYc aIAOfE9nkjfci1viecee AjYnKJCyQDs5SQr8DRVi vNpuTkEyFNC3IrM5FBD3 aBDktL3gbQpspmcg sG6vA0YoIWJcuvmzYk16 vG1vEaMuAwV4EPacYvs+ OUDNA9TGWLCIHKCPRbOP HJ38LT75xTHtk5F8 fIW9J7VeHNBsjnrsxfhw dUT5GGNaMKZiaE41yDLd EHyqQe2cr2V4o231ZFLn EWXxsD79Yy4klHur UBXsiZPSrZ4haxnut8cp safgCoZkWNXpVAo8GBa8 IMWlhJboFzPtZBE0BkB7 WJK2bPGwwL8phOxd priazN8kFve+MDUvMDUv OEp7QScfcFC+PHRkIHN0 oOppODqxEPGbhZ2wPBPb D6y7TnTyXsN3ZKsi T6UgLZFsojbxZu38yE6l VeSrLsP7TRhpY6PtpnF0 NIYlqLZeWBtmAMW9R56i z3Z8VSPbQGVcINJ0 hKY7eO0eyOhkeeapsDPu dDsgdmVydGljYWwtYWxp A604SWLpiBwxLyq6SFoe IIBhOM70WR96aZFd m8R7gCW8U6RpVHBrmaoi mcaouOK1LPJsASAweW12 qTIqPTlpWi0ff7B7b602 QCOvIVZnfC98Rn2p tDipMAUanUZKeY7avgve l5rryuxpPvQzATUwUOk2 APg8TVRvnHwiWhHmIVB8 QfX5LAP4eTAunM6d nLgssrcizN4hIdx+RkVN ICqNHV68VB07zKCuz3Y7 uDA5V8DiIUScpbijjkis gVU4KEYeEUYxzZ77 yYFnSWqrEo4pv3L1w495 XPZmTYShzA24Qy7ctXko SXNjqDWPjS6kbtrwe9wa cjogIzAwMDAwMDt0 IGk1LXMfnYqwQaOtJEK8 AtU7HBA2xIXoqN1eaDww jgdpuM3pIfj+UmVjdXJy vY4dLM26lZSmmBan ocU4Y3CkEomawGB+PC90 MLJtZX03wPZmbCYjw0xv sAy4XiNiEUCmRYV2rXkl NYbqo8BjIDNpH44h zGGqp0C7XHBgaIiflJFg AsPsaLE0hW0rEGxunmci y1yydukvNxikf4avdh67 iI93L72fZErhBBMc CLSjXUBbBZFkxHgioz6a wK9eAg7+FKGpzJN2tDF7 kD1tVjAhViZ4UVhdM491 WlGqnMJdSvrnu7do i3plfJl5OqXnMTUswiOc nSqhKWM8z3QqWk74C86i IHdpZHRoPSIyMCUiIHZh vSnzcc9fiM8yYv8+ XQ2gl4zgmu00mD75eJS+ JCHjTUW2tEytDWxbZXCx lJ8kSSxlYwZ4OEByTjGx rU84wVRtVGpeLw5k kWreyWzrYF9fDVBcgzjq j855VnDtr6htWROymHBx BMbcLER7Y54qr3F8TYGf ZOXhHKY7zTV8cW5v bGlnbjogbGVmdDsgdmVy lAhpUJkdULfkS821KSOd aNemTaAkjGKqG9eourQD MT7jOnzklFH+PHRk SKU1lRcuORvhTZQboN5u RYVnX2e8JpPoSoP9LIcm Z7HvgrV3ETLbsDUqCNEw tIFKxF8fpgsog8ri eehmImGmWEJkARs1VEh8 CDFhhUlhAfSeWJP0KoD6 ERS2hIWseJ5gmTmwkklm pN7oFmk+RklOOjwv dGQ+KBEuHIT6tUaiLFur WWHalI1mMDGuM2o3UoWw AmQ7XAylQ8YctzM7BWHt cVFqCNElsMGZkH6h ukfqq6tdimexZhNhFVOl FWm1TGe9ZWLoeBvqXaKp IDO2RzC1ZPR9jQWlqJ9m vBdsyscrlH2jVpm+ TVJOOjwvdGQ+PHRkIHN0 rZnjJKemOXQxrL8rAZXk S1d5KaEbFnS5VArnY1Ka giT3FNSdhRKxYJRc vNZLxG6bljzgb3pefzbi QxDpZGKmJHd7UHn8FQHn tGchJxZgKVY5YiA1YAU0 dGQgoR1yePhnttfu xW1uGpk+JQD3GYC4IC63 DW89R8NtLlbqxUCioFH+ PHRhYmxlIHdpZHRoPScx BTGwTzJqoTumSP7q Ym9 (more content not included)... Normal [facility] Ambulatory Patient Summaryon 11-29-2023 Ambulatory Patient Summary [facility] [address] [facility], [address] - Visit Summary For ALLISON WATSON Age: 73 years Sex: FEMALE : 1950 Address: [address] [place] [address], [address] Home: Work: -- Primary Care Provider: KARLA FLOREZ MD Race: White Ethnicity: Not or Language: Indonesian Health Plan: 1?MEDICARE, 2?[employer] AAR, 3?MEDICARE Reason for Visit: Pt comes in with weakness and needs PT Prescription Information: If you have been given a prescription for narcotics, seek immediate medical attention if you have any difficulty breathing or any sudden status changes such as confusion and sleepiness. If you or anyone you know is experiencing suicidal thoughts, mental health, alcohol and/or drug addiction problems; contact the Mental Health & Recovery [facility] 15/10 Crisis Hotline -Text 4HZAS ee 625255. Follow-Up Information With: Address: When: FARHAD RICE, KARLA Pinzon [facility] [address] [place] [address]/ [address] [place] [address] , only if needed Future Appointments No Future Appointments Scheduled Future Orders No future orders Additional Goals and Instructions: Vitals and Measurements this Visit (last charted value for your 11/29/2023 visit) Measurements This Visit Height/Length Measured: 155 cm Height/Length Measured (inches): 61.02 in Weight Measured: 84.82 kg Weight Measured (lbs): 186.996 lb Weight Dosin.820 kg BSA: 1.91 m2 Body Mass Index: 35.3 kg/m2 [place] Body Weight Calculated: 47.854 kg BSA Measured: 1.91 m2 Diagnoses This Visit Leg weakness, bilateral (R29.898) Pressure sore on buttocks (L89.309) Right shoulder pain (M25.511) Laboratory or Other Results This Visit (last charted value for your 11/29/2023 visit) No Laboratory or Other Results This Visit Medications and Immunizations Administered During This Visit No medication administered during this visit All Known Current Prescriptions and Reported Medications New Prescriptions this Visit No new prescriptions for this visit Prescriptions furosemide 40 mg oral tablet (furosemide) 3 refills authorized Instructions: 1 tab(s) Oral Daily as needed for leg swelling gabapentin 300 mg oral capsule (gabapentin) Take 1 cap(s)(300 Milligram) Oral (given by mouth) 2 times per day, 1 refills authorized Instructions: To last 90 days. HANDICAP PLACARD ([facility]) 0 refills authorized Instructions: FOR 5 YEARS ibuprofen 800 mg oral tablet (ibuprofen) Take 800 Milligram Oral (given by mouth) 2 times per day, 0 refills authorized omeprazole 20 mg oral delayed release capsule (omeprazole) Take 1 cap(s) Oral (given by mouth) every day, Home Medications Multiple Vitamins oral tablet (multivitamin) Take 1 tab(s) Oral (given by mouth) every day oxybutynin Take 15 Milligram Oral (given by mouth) every day Oyster Shell Calcium with Vitamin D (calcium-vitamin D) Instructions: one tab po daily triamcinolone 0.1% topical cream (triamcinolone topical) trimethoprim 100 mg oral tablet (trimethoprim) Instructions: 1 tab every other day Vitamin B12 1000 mcg oral tablet (cyanocobalamin) Take 1 tab(s)(1,000 Microgram) Oral (given by mouth) every day Shoulder Pain Many things can cause shoulder pain, including: ? An injury to the shoulder. ? Overuse of the shoulder. ? Arthritis. The source of the pain can be: ? Inflammation. ? An injury to the shoulder joint. ? An injury to a tendon, ligament, or bone. Follow these instructions at home: Pay attention to changes in your symptoms. Let your health care provider know about them. Follow these instructions to relieve your pain. If you have a removable sling: ? Wear the sling as told by your provider. Remove it only as told by your provider. ? Check the skin around the sling every day. Tell your provider about any concerns. ? Loosen the sling if your fingers tingle, become numb, or become cold. ? Keep the sling clean. ? If the sling is not waterproof: ? Do not let it get wet. ? Remove it to shower or bathe. ? Move your arm as little as possible, but keep your hand moving to prevent swelling. Managing pain, stiffness, and swelling ? If told, put ice on the painful area. ? If you have a removable sling or immobilizer, remove it as told by your provider. ? Put ice in a plastic bag. ? Place a towel between your skin and the bag. ? Leave the ice on for 20 minutes, 2?3 times a day. ? If your skin turns bright red, remove the ice right away to prevent skin damage. The risk of damage is higher if you cannot feel pain, heat, or cold. ? Move your fingers often to reduce stiffness and swelling. ? Squeeze a soft ball or a foam pad as much as possible. This helps to keep the shoulder from swelling. It also (more content not included)... Normal [facility] Patient Handouton 11-29-2023 Patient Handout Orthopedics Shoulder Pain Many things can cause shoulder pain, including: ? An injury to the shoulder. ? Overuse of the shoulder. ? Arthritis. The source of the pain can be: ? Inflammation. ? An injury to the shoulder joint. ? An injury to a tendon, ligament, or bone. Follow these instructions at home: Pay attention to changes in your symptoms. Let your health care provider know about them. Follow these instructions to relieve your pain. If you have a removable sling: ? Wear the sling as told by your provider. Remove it only as told by your provider. ? Check the skin around the sling every day. Tell your provider about any concerns. ? Loosen the sling if your fingers tingle, become numb, or become cold. ? Keep the sling clean. ? If the sling is not waterproof: ? Do not let it get wet. ? Remove it to shower or bathe. ? Move your arm as little as possible, but keep your hand moving to prevent swelling. Managing pain, stiffness, and swelling ? If told, put ice on the painful area. ? If you have a removable sling or immobilizer, remove it as told by your provider. ? Put ice in a plastic bag. ? Place a towel between your skin and the bag. ? Leave the ice on for 20 minutes, 2?3 times a day. ? If your skin turns bright red, remove the ice right away to prevent skin damage. The risk of damage is higher if you cannot feel pain, heat, or cold. ? Move your fingers often to reduce stiffness and swelling. ? Squeeze a soft ball or a foam pad as much as possible. This helps to keep the shoulder from swelling. It also helps to strengthen the arm. General instructions ? Take luvm-bkp-nmwflvy and prescription medicines only as told by your provider. ? Exercise may help with pain management. Perform exercises if told by your provider. ? You may be referred to a physical therapist to help in your recovery process. ? Keep all follow-up visits in order to avoid any type of permanent shoulder disability or chronic pain problems. Contact a health care provider if: ? Your pain is not relieved with medicines. ? New pain develops in your arm, hand, or fingers. ? You loosen your sling and your arm, hand, or fingers remain tingly, numb, swollen, or painful. Get help right away if: ? Your arm, hand, or fingers turn white or blue. This information is not intended to replace advice given to you by your health care provider. Make sure you discuss any questions you have with your health care provider. Document Revised: 10/12/2022 Document Reviewed: 10/12/2022 [employer] Patient Education ? 2023 [employer]. [facility] Outside Recordson 11-26-2023 Outside Records [id number] [email or web address] [facility] Coding Summaryon 11-20-2023 Coding Summary HTMLBase 64 EoetfqykDPz9uDd+PGhl YWQ+TZ7FXSNyG07ibFBy gI8nD0RVSBrQSazzUXYJ KYhPDbBrgiNdYO5jyEKw ZXJu IC8+YW6vNQBbHdfqcLIs b7L4zLW9U61bkt6tPOae kEI2XGKxSzGomerev6mp cKp6QAgeRmdsGuIq SEWmkZ63JWX7wL30Ov73 nWJheFQws4qydBc8YaFi QHEvKDA7dWpeKAdoj7Ju DAKxB71xcESjq1W3 IGNvbGxhcHNlOyBlbXB0 fJ4sEZakooutr3reechd Qlh9dz95mMRpw6E1pBR2 T2ConyR0JAEcjLTt EpenuZXZnI8wuvucx1dw lmlfRoIkXYGtURf6KXg9 OLQvsYpjAxTbAN26BWL2 GBPkwsMxO2MzVAFd kDooEhX1u3W0Wu1BV7NV FtckK0WJDFXMCBohzNU+ UC88oc88T9DjCvsfPxb1 VAKnZVU6fRU2dN4w EYXdQAkbn3A8zOW7C2Ms qaVnoy7tx7ubCIFuYQvc O61ssADau7L3YEFdfLH6 YBKoyRowWpRzgJ26 Oyc+JEHjaVvkl9VvKnar x3osg4mrzWu8ZtthWXRb xkRprVmhJSE6q4GeOi5p OXYnjXY0zQV6vE3d YzXnGyQ2HTofU733ViKh zJUuQclzR01jS1EfbMQ+ PUSzKxh0DUNadVqmQE8b V0HpXCAccoycdDSh wJdvBU4rSLZqhcrtGVXw lU0bIVFzV5q0WvRuBtP5 NOssQ1IwVPHqpvqaTz77 nP9tUkRkAsO9URkh O3PfvpO8QDVvxAZlEZhk FTI8X02ju8Y0YKOaWUAg MQI1iPO4xY1rtOcyhwhw bGVmdDsgdmVydGlj LGxbUJauI784LKYxcHdi PkNvZGluZyBEYXRlOiAg MDgvMjgvMjAyNDwvdGQ+ YEIhIPN5jDzoIERl zUYdHTvkUq9bxGbpqHcy JB7mRVVxsuksUYCgsE1o RJMrlAXzvIrxMM3uRBSi nhkld851HoAmBAL2 XBFbnEPbN7PbrP7hPeHn ABXiGCVzC3SalPJmIUju V384SHovMfS4VFPimqJq W4FoDGMtcYcsByX5 x5H4Zi3Kv5BrtabwX1Zl mSGsDkJcLggpKRg9A1Yk PjwvdHI+JA12MXFiHP48 EWo1TDU6uZdhJOcg RSYvL9SswW4uYuJcWTNf ZGRkOyc+PHRhYmxlIHdp ZHRoPScxMDAlJyBzdHls VH5rNe6wVFUeXIYg mVkbbJFvLcNxz2fuERGn VNruCO5yuInlN3XmzOA8 TMPem2a2Bu95Q46iB4Cj dXA+HGTgpPI5jUK7 jL9qVcRhTfS6RDhiP222 BaPicEWzJkhuo1pcl9ns gHo6FrD2AYTixgUbgSch XFK3a1UlNp98W97f IHdpZHRoPSIxNSUiIHZh zFvbug7ctH5cIq1+PGNv tQT1jGM3uR8rRkGrUoT6 SKgxO708OrYcuLCb Zkwde7trv3qjaYq2OfQv WJTqbkNfhVfiCAL4k1Bd Dm44W7BzwAkcf0SxMew2 iq77bLOpc8P5uPN7 K2YzKDIfrwcwqHTcvOkb IF3fSCVjxfuwJMXfeC7a ISLrB3j8BaHfOpA7JIaq R7NlbnA5VSNwfBYz NMInhRXOyM8gvcvrr5pv ryeyYiKfVUBaJCc2NDa4 FZOznPqlCaEvMFH7LkI7 VGO4jUKsoN8dtOuf kgkqtI6zJou+MFO3yWWi oBWVPZ2lGfsizOY+PHRk JVH5mJivUHghUQLdaH6y LLQdE9k4CfPxAuR2 OWotI9IwmeK6MHCasLQr KAUejVTIsM0tbiqcn2ug rychBjTnLKRnPCb3ACy8 LWFsaWduOiBsZWZ0 JnP5MOR8aNMcaL5bhLrw ibobpI3pXpq+QmlydGgg YWC3RZt7Q2FwLxz2WXUa dOumEV7ghDJsYWgq Fr9pmZexzMpvHO9tKBCv ocxey410WlCcj6znCQCl hZMiEPgwLBF2W25hc8R7 TIAmMBMhBET5yOJ4 fH3daGyqmhjvdTPvlEeu drBpsTonSZirYGodU992 IPGhsDzrNnGnBGt2M6Vt Wbo9MSXbkUigKD8g bBIiUHhpOx3ufFjsmVzi ZI2fRNUpiiptp302EoNo y1ovFDOziXFxXWmyURO0 X38qx1B3SYBqVTNu YVC9aCM1mA0jfGfcjwai bGVmdDsgdmVydGljYWwt GRaxU650BXIqtXihTgNa sXl0N6JbWbo2LLZy cCdtUO1phULgUBbrBm9k tJajpVmlAQ5zTZLoxwen b208RaDxl2njMWZmzUKo DBfnDJU3Q71ug9R5 CYZwGVUeKWT7bMS5vQ7w bGlnbjogbGVmdDsgdmVy fCapNJsxYXldE732EJXu cDsnPlBhdGllbnQg PSndXQk9N9XbJkdypLO+ KM87ERWoLH92dNYusTHe s0ljpEe2WtPcPFPaGWQ2 vZixUFnwq6NkQRMt O53hoHSwg8I4OEPvcRxm qZGhWlIhjPK8iE5yETiw rflwe2rskkrpWybct7ah oa42vI90I28yQAtn ZHRoPSIzMCUiIHZhbGln lr2feG9pPq9+PGNvbCB3 lSS9zV3yNVIdIdL7WWsy Q979DiWzxEJvSgbj t7kft6amsZf9ZvM8IOIw sdYlhRmrLTY8k8JiUq52 L64eQLrlKLJlCMQcNFZt WWYkbCjfdz8rdV5n Ii8+TOTxwSM6yFU1cU6e LqBtSjO4KXueM959WlUh lHYmPncxP51nO2WncVI+ SBFkLsq6YHAjwEpr NM6bcMMzFMjpPb5qMQR3 DjGqLyQiVZtgX9MlDVMy qzbpfvabhLB2JREnCVRk iI78Rz8ucBebDIWp tOFWyD8zkgjfm9yzsudz SqMnXJIyMKp7LMp7LWYh pCdlRkOgGTY0ApV3BKJ0 vNRaiQ2ftCyxaoqs nX6vG0WnFDCsxtpkCv24 aF1vTgGsJdM5SUtfRok+ AMOLL2HEUKMNWUCWToVM AA42HX48xSHks9I6 bFR0R2ZvAFFlgoqiukrl tWU8MXZfZWRweV68rSIb LXrgMy5ty9K1e297KVSm IWTirY66Ft5rgLlz XHGsqDIAvF8sbphjr3zj iadhQgCmMPOgZTv2PAv4 GLXhtZygKzApDJL5IiW3 FVU1dVHodU4wyVsn svhtpU8qNnp+MDUvMDUv EEd4WTpcxTD+PHRkIHN0 hPxsIAjmBREnvT0aJIBh U5r7KpQgLrH4EGqx Y2RkMFEnnasiAg01lJ5j InKzNfQ6MXgfQ0VqnbY8 ZTXwjFVlASbiUGR7D13e i5O6XKLmKFTnELF0 qUH9qF4bmShfiiattNTp dDsgdmVydGljYWwtYWxp S712RKLdtTggVcf5DXei TIXaNU09SH47sAIi a3Y9iND6C7XoDVBgabhq bsskaPF6CWAxLJOkoS22 tOYwIBhqLy3hl4D4d072 EIGuWBIvbF19At0o dVvzNBPynDLNsP9fseap v7nxneiyAsFfXEXrNJj3 EQc9PJDmxBkiTsOqKSB1 OlJ1WWU3hILimO4x mGxasrpdnZ6gBjc+RkVN UGvKPM55GQ44cXVrh4G5 yKV1K2VqBMCugoysshql uKM4ALAbQZFybJ74 gRIdRMmmSb2pt5S4h194 QFIcTVTdvX41Ic9uwYjr ICInqDTOsV1nssbws8bq cjogIzAwMDAwMDt0 CSg8ZLXeySavJkMqLJZ4 KgM3BPU2iSAxzR5xjAdk firptJ4tXst+Z7I7I4Xj PjwvdHI+MG91MPXm ZW44cTIqpJQoj7nioFn9 KhCqSAXwGJT4wIiwJJtw e5SqLMFkO21maDAxa2Y5 IGNvbGxhcHNlOyBl sWE0iZ5rJIehlhoet3fm lulrQjegx0rvzy76kP32 I13vMVlnYTXsULHaPVLi HXEbpVsxxe2jvW0b Ii8+ULVqxKM4zOY8iE0h QgOsGqQ4VCltI892HdIa jPYaHaegg7wiy8omrZl4 IjIwJSIgdmFsaWdu PJU7g9BbNl75R26gLTgz ZHRoPSIyMCUiIHZhbGln ag5uuF5pKn5+KU7fl0au pe43vR46aZL+PHRk YZO5gSkyVSuyUJJnsJ1e CVygYiE8WDZjTzCoyW21 kFVoGRerUc6eyVwjkWkm AS1xLSWlvqqsa452 SdAxs4jdIXSidAPjDZnd RJB6V35kw1C1THUfESWw IEU6dHN3xB1evIkuxult bGVmdDsgdmVydGlj FUgyQUfgB193ZYIefWzs OcNymGJsW5rvpbZORF8j OjwvdGQ+PONsPOF8xUvd TEryMGRczS6wYGEn Z6x6AmHeMjG6YGaoZ5Kh xbK0XPHonPGtUVIzmMCC mK3zmmmyg3ziokhpPnCn FQToLEj9NHa2QHRv iHucAtUfAAZ9NzU9UZR4 eRJmvQ3qxVilxolmeQ8d Oyc+RklOOjwvdGQ+PHRk GEH3bGeeQYahUPCy xH5oPXYqI3f6GtBoQrO3 XXhbD1LqwbF1WMChsNCx IVLxfPLWzY2spyuri5sf cjogIzAwMDAwMDt0 OVa3UNJhmTerJxUxUDA0 OmX0RJP1eQHpxG1rxMvz eyuxyE8lEpi+TVJOOjwv dGQ+ADZlCQE7dIfd LUrpAFRdxY9tYMRqM0p7 FnKbJrW4LZvqJ3UfbwV8 YPXdhYOnMEQjoJNRcS9t evbyk0pthnnxTbPk BZTyNWo2JLe5FVAjuCfr QfLzCRR1RjU6FOV0rJLn vP4soBsdvyssuJ8cUes+ RAP3MAT1XR65CK67 S7DjJsqvyTLxzXQ+PHRh YmxlIHdpZHRoPScxMDAl MsYlnNntHE5vVx7fVYGw LWNvbGxhcHNlOiBj b2x (more content not included)... [facility] Coding Summaryon 11-13-2023 Coding Summary HTMLBase 64 MirseydvKJr4kQz+PGhl YWQ+EN5KXBVuP12jlPLg lY1qU2UGPIpPMgglTULC FBzHOmFbsjRfFT6suUEw ZXJu IC8+GT4pKVNbPdaqvAVl a8I0lEX6T28cji6pXEir hQP1WFDsXnFgqnwgs4sl tBz4AVgmRccpFbOv SNDbbW79VXR6zA96Sa19 lALzqIJgj7odmJn9RzDy OMXpSEK6dAocFGqzh1Kb ZBPyM24zjEIqw5V6 IGNvbGxhcHNlOyBlbXB0 yK9rSYsuaibqv2rhdxwr Kca8pb94fWNip2S1oYU3 Z9DuhzX5FITksDLl ZkmxrQIOiX4llqmjz6dx tuxqNpNnOLQmDVa7CXw1 JZGdbExhNvQiCI69DLR1 LFJkqqXyL2EgUNZl fXcdViK8q8C5Rc7AB7OY VfoaH6CBDJFEPMgpcJM+ YT90bn30F3AkYgjdYtu4 UHBvDXS7tKO2lL5p SPRaFIehm3C7pJQ6R2Le pxNngz5wu7raTCTxVIpf Z86cuMMsi6H1VXAfoWY9 JLXezGbeMrJunL18 Oyc+VGImoIehb9CxXwxq h3ipc9acvUf1TllyZWTy tnWzeGdtALN9i4VkZw8v ZDDkwDM6bYD6pI7e TxQaWpO2PBrnF162XuSd jCIwGeqdR77kH2DowIB+ EUNlMtd0ZIAyrPoxDQ1j P2PuFOFdoalllNZa zJdvBM2hMSNwshdnIDLc xD6zFVLyM2s6CmIdMmZ9 OMejK8YcJXLyeibxGi36 eH9dAwOeRtD0RPti W3LsgiF1CNOnuEOeNLke JJQ0K05as2J1UDHgCTMv YAS1mSD4lN7leOdqlmpo bGVmdDsgdmVydGlj YMgwUGwqZ532HCGyaTcg PkNvZGluZyBEYXRlOiAg MDgvMjEvMjAyNDwvdGQ+ UZGfKPD0kLmbKFYd kIKaJPowHk6frFiadAgi KC8zUANzjysdWTNkcZ4g YDOwsECskEfaYK9jOEEg rrjhe612XsPmIRZ6 SNAnwZAgY7NuvB3mHdUb TOUwFCHqF4OroHQcWGke D319LHqeZrG4DYUptuIb C4ViFSPmeDreNlY1 q7G8Ig7Rv7RovphcB2Xi eTApJiCnWlnwELi5M4Yr PjwvdHI+BU00FVOaSR24 CNw0ZZU9oJfiFPtp PIHtV2QokT1zHiDiGGWr ZGRkOyc+PHRhYmxlIHdp ZHRoPScxMDAlJyBzdHls EC9eWg7bHMVtIEMh sUzjiLHzIkBga9mmGENp EEwtYX3jiIrwY1TrdKB5 JCYkj2e7Na25G75wD9Uw dXA+CMXodGK4pUJ9 vO1jPkVaPfC0LAhxK218 DhQjgSJvKejgt4qnk4fd zXb5LxC6OMUonrGrnXpb QFP7q1GxIt79K74c IHdpZHRoPSIxNSUiIHZh nRdcbo5vcX9dJf1+PGNv tYC0vYU3jG9mYoQbTsZ2 CHgtY475LqGipBMw Hgrjs0wnk2ejtMl6LdXk KHYtvpYpbIgtLZY8u6Qj Wa53X7FmvLcji4DlPug6 cv28bQFbt4B0uXE9 B0HyZFXksniniFQxoYuw MK6tOVLswhrkXAHbyZ3g ZDBvW3j6JhBnXjZ3KElr U5VekmP6NMYyeOUc TBOizARFkC1veaczs8hc pjauYuVyFBEsOIq0HBj8 PHQbcFprSdEwNNH0BeB4 ZFS0eYCdzQ2bcLht ofqbaH7yUdj+AIC0rCEm lULXBS1sWfilaNT+PHRk RLM1mJcgYQbyQMRweO9z NSMxI5b3RqSsGbT7 LOulJ2DgfwI4WKCtuBYm IKNvgKXGyB1cxrjic8nb dqijHkBlSYMvLBv8PIx5 LWFsaWduOiBsZWZ0 WrH4UQA5pZWkdL4erKmh bgddzC3fJov+QmlydGgg CYX4CKa4Q0JkIbk1YOCf lDnvUK0ecQUlEYsh Ye8nyRqbqQyzAD6uZRQu qgkwn792MmDrm7zpGXVu hQTvRKjyDOF2E88qz8N2 PAQxWXRhALR6oCI9 tL8sbJrycqmdmPBtiQyx ntFgtIfpVBirSWmyY769 SWHbxFpgQhGqEDe6F6Rr Zkz9HYMceBymDO5v vVToEOirEf5qmBsofOhg NP0mDNRmhrydm753HkEs y5twHXLjmJHjRCjhUSL9 V56da6Z1VVPkVWWr WMK7uYE7kB2tvHtkyblm bGVmdDsgdmVydGljYWwt DVwtP029RQXseUfjVrBv lLh5W6OxPhx2WBXx gUecSQ7ltIDaMUbvZr3m hXoaaMnoJF3rLJLhxdfm e495OeJdk1bgMMRnvJOp PNkzSAC5W07xa5X6 UTQhNFVnXOS7mTA7iV4s bGlnbjogbGVmdDsgdmVy gLesIVbkYCopE409UBNr cDsnPlBhdGllbnQg MRlkBEa4R4AnAtobyZN+ AF43KSCrZL69vMJtkLXa w7wyiUn9IjJkKKPeRZJ7 gEkuFMudx8AmIVLs P04uiDXbk6T8NFOsyGsf wNXxSaCqxXC8rL5lWTlt qctco2iupxuhLtgrp5fw ws77yQ68S96rWBxx ZHRoPSIzMCUiIHZhbGln wy2slJ5zVy5+PGNvbCB3 lBH3rL5rHUEfUnG4BGha E824FpMpoOKyFxup c8yqv8djiIc8RoW9BONq caVidRlgHZI5c3NmSa77 Z83jBPcqENAgLTPmAJEh TSQpxTebwk9yaN3o Ii8+SEUesLI6lZG1lX5b DoYePzE8SCvwS098QrQo qOLkYgspI67bY1CwhSR+ YWZuMef4DLWozPbs GQ2dqHPbRLjpRn3uAFX4 ErWeNyQiFNjxH7EwFXJm npbyuvvzwYP4TBXqUUUf mS78If3wbOjzXJWc nCLNpM8hvqemk2gmzute LvIlJFBsFFn0MDs8VMKt fOtzBjBwFQU5FcN7YJM2 rRLlxD5frNzuwoka tK1oO2TvSIIadfgvRh10 hG1eEzKuZdN9HEejZmd+ MTKPB3UQFBCJHMMRUqKO DW18ZP86kGCjf7H1 pEZ2I9YhIUCeyenvvlez mSE7EYCpUVCorH37aOZm ILtmOp9ob5L2r113BCLa IEMhmZ95Na5knWja ZNWpbZFQvD6lmxdjg9uu zqwoBuSsMTUnZRu6QPc6 AYLpaEmwYeRnVWE2IhP3 TEC3fNMzyP2aoRvg lxayfO3tPqb+MDUvMDUv QLa9FQjndVS+PHRkIHN0 sCiyXSgkDBEirO7gAQPa Y2u3AcOiSwC2IThj F1KsGVBcauacDh18gD4p SoRbDpF2LFvlU3FxrbB8 RDQwgYHxECarYSX9Z83h k2J2OCJqNLFgRIG5 zYR3rW6aqSheolfrbSWj dDsgdmVydGljYWwtYWxp J929PJNixKspCxd8LGqy MMFgTH43MW66nKHu f4B5uCA9R3ExJTAiutxn zubvuLC4EFIpRATbnQ48 gJZtCTqtZx1da0F8a592 EBCuPYSfqY66Pl8j pEonUUDuuYMWrL1sxmof d0bpxqmhWmHlQVLmLCm1 SUj0WVRrqLewEjQsLRT8 FdG9VRG7sOKvxQ1z eJqcrxyezR1hAaf+RkVN AWyQTO70OY83dKFkh6Z2 eWC1P1EaDOAlzqvcsvti kKT8XTKnXSBqyP56 aFErWCpmIr2fk7Y3l681 ERXzZCIzeW79Lo9ibVjh ILPycZRUtY1kewypa9dy cjogIzAwMDAwMDt0 MGz7TTVwhIumClViKMZ4 EsZ7MMY2rBXvwD9roUzt ulezxV1eSxg+V2V2T4Yw PjwvdHI+XB21UGEs GQ28pTDamOLsb7rcxJh3 DsVuOTItBXC9yOlzOLss r9IwASCsW35glSXbd6J3 IGNvbGxhcHNlOyBl yMA9eL9iTKnytyshy2ty sfrqJpwcq4qvjy95jV49 V85cWXpkJGAkWWTbBWEp CDFxmQokbr0diY2s Ii8+DZTgcJN2tCZ1dK3k JwYyQpT6FBooF818HrYa yZCwXdtzf2ssn4mamRt4 IjIwJSIgdmFsaWdu CKL1e0OjPx62L06jEUuv ZHRoPSIyMCUiIHZhbGln ju7euH5sAi6+PN1er1oc tj06qS00nPE+PHRk OUH7xSbrIBeyIGOisM1y HTlyAgH7HWAaHhLykG58 iMMmMRhqYo9dnGpxiCaw VB9hTTBuvikvt334 QuQex1oqXTTjrVWgMZge VIY8E40tx7M6APFmGBXp BHO7dUX1nI9slZxahfiz bGVmdDsgdmVydGlj HPjcEZxnX199PPOvoXym EdJnaNGwJ8chykOEBI7d OjwvdGQ+RZTcZPD2qOis KSznRBTttZ9aDIGa S2n9DnYjEwI7XOlmD1Km lcV4EAMgpYVsVKUqtVRF oL6lvclye0pmhjpwNzLd FFYjAFu2LWn1WBBx jBhcRgXzPXY2WgS8YUP3 dHXwtW6bpNdxeqmgiC7z Oyc+RklOOjwvdGQ+PHRk ABY5rFxhJUrxDDUl rQ6tPPBtJ1a8KoNlAkF9 VFddH3OewpR1VZJymYAm YKRlrNBPcL6ddpttv4ne cjogIzAwMDAwMDt0 KRj6PFHzzLldAkFvTFO2 HeH1SHK8eXHslV2uyBkd pyxkkD0zFjl+TVJOOjwv dGQ+QWEwSAZ8bXjg BQnmPWRhgW4jDVDkY1q9 BuYoTcE6JYbxX8ZsqnH5 ASWuyZTeZDNotLEOlT8a piebb6oycscbTaIw ADFzAMh6ACw2RPQnxKgw GxQbJOK6FzT1YKI2sOAq yF7dpIadrjhqcQ8kEkw+ FKX0EQX5BP42IJ64 S8BtEbpilRWtyTG+PHRh YmxlIHdpZHRoPScxMDAl NoEomBfwVP8jNx6iXHYe LWNvbGxhcHNlOiBj b2x (more content not included)... [facility] - Other Lab [facility] - Other Lab Results [id number] #[id number] [facility] - Other Lab Results [id number] #1.00OTGTIFF [facility] C Urineon 11-08-2023 Bacteria identified Cx Nom (U) Microbiology PROCEDURE: Urine Culture [R1] SOURCE: U CleanCatch BODY SITE: COLLECTED DATE/TIME: 11/05/2023 14:10 EDT RECEIVED DATE/TIME: 11/05/2023 20:41 EDT START DATE/TIME: 11/05/2023 20:41 EDT FREE TEXT SOURCE: Oraby ONYX CHIP TERRAZZO WORKER, ACTIVE DIRECTORY SYSTEMS ADMINISTRATOR-C, [place] ONYX CHIP TERRAZZO WORKER, ACTIVE DIRECTORY SYSTEMS ADMINISTRATOR-C, Adele X Adele X FINAL REPORTS Final Report [] Verified Date/Time: 11/08/2023 10:39 EDT 15,000 cfu/ml Jane albicans Presumptive isolated. 1,000 cfu/ml Mixed skin contaminants Performing Locations R1: This test was performed at: [facility], [address] [place] [address], [id number] , , [facility] Comment on above: Performed By: #### 2 [id number] #### [facility] [address] [place] [id number] Outside Recordson 11-07-2023 Outside Records [id number] [facility]-07-2023 Provider Orders [id number] 0#1.00[facility] XR Abdomen Single View (KUB) on 11-07-2023 XR Abdomen Single View (KUB) EXAM: XR Abdomen Single View (KUB) HISTORY: HISTORY OF KIDNEY STONES COMPARISON: 04/17/2019. FINDINGS: Supine view of the abdomen. 2.8 cm x 1.8 cm ovoid calcification present pelvis consistent with bladder calculus. No other calculi identified. Gas and feces are scattered through the colon in a nonobstructive pattern. No organomegaly identified. Degenerative changes in scoliosis present lumbar spine. IMPRESSION: Bladder calculus. Final Dictated by: Cory Mercado DO Dictated DT/TM: 11/10/23 11:05 Signed (Electronic Signature): Cory Mercado DO 11/10/23 11:09 a Technologist: GERTRUDE [facility] Ambulatory Visit Summaryon 0 11-05-2023 Ambulatory Visit Summary Ambulatory Visit Summary ALLISON WATSON :1950 Visit Date:11/05/2023 Ambulatory Visit Instructions Your Diagnosis Gross hematuria Neurogenic bladder History of kidney stones Tests Performed XR Abdomen 1 View -- Results Pending -- Please visit your patient portal for your results or contact your primary care physician. Your Care Team Attending Physician - IJEOMA Ron APRN, [place] X Primary Care Physician - KYLIE FLOREZ md This Is Your Medications List Contact prescribing physician if questions or concerns calcium carbonate (calcium 500 mg tablet) cholecalciferol (Vitamin D3 Gummies) doxycycline (doxycycline hyclate 100 mg Cap) gabapentin ibuprofen (ibuprofen 800 mg Tab) multivitamin (Multi Vitamin+) oxybutynin (oxybutynin 15 mg ER Tab) polycarbophil (FiberCon) sulfamethoxazole-tri methoprim (Bactrim D.S. 800 mg-160 mg Tab) Procedures Performed Injection of therapeutic substance into bladder wall (02/14/2021), Injection of therapeutic substance into bladder wall (01/19/2020), Injection of therapeutic substance into bladder wall (10/06/2019), Cystoscopy (08/20/2019), Cystoscope (04/29/2014), Cystoscope (04/20/2014), Urodynamics (10/02/2004), Back surgery, H/O: hysterectomy, Suspension of bladder. Discharge Vitals Temperature (Temporal Artery) 35.5 ?C Heart Rate (Peripheral) 84 Respiratory Rate 16 Blood Pressure 146/76 Height 153 cm Height 60 in Weight 80 kg Weight 176 lb BMI 34.17 What to do next Scheduled Follow-Up Appointments Saturday 11:00 AM EST With: Sutart TERRY MD Where: [facility] [address] [place] [address]- You Need to Schedule the Following Appointments Follow Up with Stuart TERRY MD, URL When: Comments: 6 months Where: [facility] [place] [address]- Medications What How Much When Instructions Unchanged calcium carbonate (calcium 500 mg tablet) 1 Tablets By Mouth Every day Contact prescribing physician if questions or concerns Unchanged cholecalciferol (Vitamin D3 Gummies) Every day Contact prescribing physician if questions or concerns Unchanged doxycycline (doxycycline hyclate 100 mg Cap) 1 Capsules By Mouth 2 times a day Duration: 7 Days may substitute hyclate for monohydrate based on availability Contact prescribing physician if questions or concerns Unchanged gabapentin By Mouth Contact prescribing physician if questions or concerns Unchanged ibuprofen (ibuprofen 800 mg Tab) By Mouth 3 times a day Contact prescribing physician if questions or concerns Unchanged multivitamin (Multi Vitamin+) Contact prescribing physician if questions or concerns Unchanged oxybutynin (oxybutynin 15 mg ER Tab) 1 Tablets By Mouth Every day Contact prescribing physician if questions or concerns Unchanged polycarbophil (FiberCon) By Mouth 4 times a day Contact prescribing physician if questions or concerns Unchanged sulfamethoxazole-tri methoprim (Bactrim D.S. 800 mg-160 mg Tab) 1 Tablets By Mouth Every other day Duration: 90 Days Contact prescribing physician if questions or concerns Allergies Macrobid (Sick) Problems Ongoing - Any problem that you are currently receiving treatment for. Asymptomatic microscopic hematuria Chronic cystitis Esophageal reflux Female cystocele Gross hematuria History of kidney stones Neurogenic bladder Patient Survey You may receive a survey via text or e-mail asking about your office visit. Please share your experience with us by completing your survey. We appreciate your feedback and thank you for choosing us for your care. Education Materials Clean Intermittent Catheterization, Female Clean intermittent catheterization (CIC) is a procedure to remove urine from the bladder by placing a small, flexible tube (catheter) into the bladder though the urethra. The urethra is a tube in the body that carries urine from the bladder out of the body. CIC may be done when: ? You cannot completely empty your bladder on your own. This may be due to a blockage in the bladder or urethra. ? Your bladder leaks urine. This may happen when the muscles or nerves near the bladder are not working normally, and the bladder overflows. Your health care provider will show you how to perform CIC and will help you to feel comfortable performing this procedure at home. Your health care provider will also help you to get the home care supplies that are needed for this procedure. Supplies needed ? Germ-free (sterile), water-based lubricant. ? A container for urine collection. You may also use the toilet to dispose of urine from the catheter. ? A catheter. Your health care provider will determine the best size for you. ? Use this catheter size: ? Clean gloves. ? Soap and water. ? Clean washcloth an (more content not included)... Normal [facility] Urology Office/Clinic Noteon 11-05-2023 Urology Office/Clinic Note Urology Office/Clinic Note Chief Complaint 8 month f/u HPI Staff 73 year old female patient presents today for a 8 month follow up. Previous dx of neurogenic bladder, asymptomatic microhematuria and hx of kidney stones. *Oxybutynin 15 mg ER qd, bactrim 800 mg qd. Pt states that she does CIC up to 10x daily. She currently on Doxycycline and has about 3 more days left. Dysuria: burning Incomplete bladder emptying: pt does CIC up to 10x daily Hematuria: yes Frequency: CIC up to 10x daily Urgency: no Nocturia: 2x to CIC Stream: does CIC Leaking: rare Post void dripping: no Wearing pads/ Depends: wears pad changes 2x daily Urge incontinence: no Stress incontinence: no Incontinence without Sensory Awareness: no Abdominal pain: no Flank pain: no Sexual complaints: no History of Present Illness I have reviewed and verified the staff HPI to be accurate for this encounter. Portions of this record may have been created with voice recognition artificial intelligence software, specifically [employer], [employer] and or [employer]. Substitutions may have occurred due to the inherent limitations of voice recognition and artificial intelligence software. Review of Systems PHQ Score Initial Depression Screen Score: 0 SCORE Physical Exam Vitals & Measurements T: 35.5 ?C(Temporal Artery) HR: 84(Peripheral) RR: 16 BP: 146/76 HT: 60 in HT: 153 cm WT: 80 kg WT: 176 lb BMI: 34.17 General: Well developed, well nourished, in no acute distress. Genitourinary: Flank Pain: none. Bladder: nonpalpable. Assessment/Plan PRW patient BBQ 16 1. Gross hematuria (R31.0: Gross hematuria) Negative cystoscopy at the time of Botox 01/2021 UCX 10/15/2023 - >100k E. coli, treated with Cipro Patient continued to have dysuria, feeling that she needed to cath more often and was treated with doxycycline. UCX 10/30/2023 negative Patient's UA today with gross heme, small leukocytes. Patient reports urethral irritation, with urge to void, feeling that she needs to cath more frequently. She is performing CIC up to 10 times daily over the last week due to the symptoms. We discussed trauma to urethra regarding increased CIC. Will send urine for culture today and treat if positive. She is taking Bactrim every other day as UTI prophylaxis at this time. Continue until urine culture finalized. She does report history of bladder stones. Will send for KUB to assess for recurrence. -Send urine for culture today, treat if positive given her symptoms and gross heme -KUB for bladder stones 2. Neurogenic bladder (N31.2: Flaccid neuropathic bladder, not elsewhere classified) S/p Botox 200 units done 02/14/21. Continues CIC 7-8x per day. Denies issues w/ CIC, does not void on her own. [1] Patient has used oxybutynin in the past, but was discontinued due to severe dry mouth. Myrbetriq cost prohibitive to patient. She was restarted on oxybutynin 15 mg ER every other day. Switched from amoxicillin 500 mg every other day to Bactrim 800 mg every other day. Goal to CIC every 2-3 hours. Patient is now performing up to 10 times daily due to her urinary symptoms. See #1. -Continue to CIC, reiterated clean technique -Continue oxybutynin and Bactrim -Patient prefers to follow-up in 6 months for reassessment Ordered: Urnls Dip Stick Auto w/o Microscopy POC 00413 3. History of kidney stones (Z87.442: Personal history of urinary calculi) No recent imaging, denies flank pain, denies recent stone episode. -Will assess on KUB Ordered: Urnls Dip Stick Auto w/o Microscopy POC 25685 XR Abdomen 1 View Follow-up With When Contact Information [place], [place], [place] [address] [place], [place] [id number]- Additional Instructions: 6 months Patient Education Clean Intermittent Catheterization, Female Overactive Bladder, Adult Hematuria, Adult Problem List/Past Medical History Ongoing Asymptomatic microscopic hematuria Chronic cystitis Esophageal reflux Female cystocele Gross hematuria History of kidney stones Neurogenic bladder Historical No qualifying data Procedure/Surgical History Injection of therapeutic substance into bladder wall (02/14/2021), Injection of therapeutic substance into bladder wall (01/19/2020), Injection of therapeutic substance into bladder wall (10/06/2019), Cystoscopy (08/20/2019), Cystoscope (04/29/2014), Cystoscope (04/20/2014), Urodynamics (10/02/2004), Back surgery, H/O: hysterectomy, Suspension of bladder. Medications Bactrim D.S. 800 mg-160 mg Tab, 1 tab(s), Oral, Every other day, 3 refills calcium 500 mg tablet, 500 mg= 1 tab(s), Oral, Daily doxycycline hyclate 100 mg Cap, 100 mg= 1 cap(s), Oral, BID FiberCon, Oral, QID gabapentin, Oral ibuprofen 800 mg Tab, Oral, TID Multi Vitamin+ oxybutynin 15 mg ER Tab, 15 mg= 1 tab(s), Oral, Daily, 11 refills Vitamin D3 Gummies, Daily Allergies Macrobid (Sick) Social History Tobacco Never (more content not included)... Normal [facility] Comment on above: Result Comment: Elec tronically Signed By: IJEOMA Ron APRN, Adele Piedra\.br\Date and Time Signed: 11/05/23 12:44 EDT C Urineon 11-01-2023 C Urine Mixed skin, or urogenital sylvester. Clinically insignificant Normal [facility] Comment on above: Performed By: #### [id number] #### [facility] (DEFAULT) [address] [place] [id number] Coding Summaryon 10-31-2023 Coding Summary HTMLBase 64 RqsypqqxWJp4aNg+PGhl YWQ+JC3KDEPuO18nsVEv vT7jN3IHHDoJShvrZFOV QWuSIwKgzhTwDT6ngAVm ZXJu IC8+QL8yLDMzQbgjtSYk l7K8pBM7V78mmi8aNJxx sSR7GRZnVcDzrcwgw0pv pYy7XHllUdatSmWm HACfcZ39ITM8vP25Xr78 nUCujHSlv0dkjSq2WaUw RIDcJTS1vEtlGKgxa8Jt JLWmQ06swDGor6Y5 IGNvbGxhcHNlOyBlbXB0 gH7yMZujvqbld7ylacew Vrq7rg85jKVxn6B3oQT0 Y6DvcpY6HDHlvKXo ZwfofTZLtZ3xrnays2ha hlooTtYwPOAbZNb0NGu3 VPPgpVhiWyHyAF02SBS3 STBjoyVxW2IzKQJu tXpxOdK4c1F9Ge7GI5OK KhfaO9ETKCBWWUjufML+ VP76sz11U3DfXxmzEdz1 SEAaXIP6nEV3wQ8k RAQpPEbcb6Q5tIW4A2Zc mwBpez5ha8xjTOMoRBab W27ncKRbh4L6BXLvcJR0 WQSepMtvYmMheU73 Oyc+SMCeyNxvq2PnRcod p3evt4jfpLk6IzdzXEMe vbWpyBhsULJ2g1NlTx4o XQXhwSQ4rJA3mF0u TuGzViZ6CMkvM858DzWw lZIrGjzyL36jH6YxjDM+ BUCtWnq5NCGhnXgmVG0c N2FiUWZlyirdsTXt xIpgOE4kEKChubewHPYe oH9pTVEvV7i4VfXfLpG2 NTweA8PfGIIvwtpkOv18 zH5zUwKfOzT0QOnf J7MollH5PWZyyEOdYTia TXQ8K16dd2N9AMRmBUHh DVO0xCP1dC5lhSbzflcf bGVmdDsgdmVydGlj VTjlLBviA387ZJBcwSgo PkNvZGluZyBEYXRlOiAg MDgvMDgvMjAyNDwvdGQ+ NXDbYQW1rLtpJRRy fKBsRHqdVn8kaBilwZur YN5kVJKdvbguDZYfwX9u NBIdmBKksGffRU8bSOGf rktie402EhBeWDX3 ZDKymCPxK0GtuE8kQmRp ZUGjQBYkZ9YvlBJbGQbz W796UXwoGwP7HDGwdsJr E1NaOLZakJrnBsZ3 c2Z6Bp8Oh6BnjufzW7Nj rDUtKbGwZzksCBa5K5Rr PjwvdHI+PZ05ECXwEG89 CZc2ACL9fCziXVpk HSIgS4HjpL0oYbFiNTTk ZGRkOyc+PHRhYmxlIHdp ZHRoPScxMDAlJyBzdHls EO8rVf5qLTJpCMSo fNxqqJWuJgCey6viLAUn LFqhIN4wdZelA7YiiJB5 XTNav1e2Dc51Q68uD5Ym dXA+JNPkdFX0oWX0 tJ6pNyJrJtR5WXcjS937 OqVwiCFaRmrpq5meg8fs oLc9ShP0EFYbehWvuJno ZUB9g1JmQu60D67z IHdpZHRoPSIxNSUiIHZh nObqlf3beL9fLj2+PGNv mRX1sIK7wE8hBrYjTqT2 KCfyX528AsAcnOSe Buirr0byx8qjfDr4WiTc XHHatbVxhUwmXLL6z0Mx Qy43I0GntHxwa7PqIws7 sr80yHYhx7Y8vWK1 T8MyFHTdvrdmvONboFsw VB5rXUEtumgqQENqwS3g TRJqH0k3XxFqDbX0LJpm Y2AggtM1BRIypEJg YGBigHIUrF8rmthjd3mo hrppHsEtUUAaFJj6AGo4 ELRmbGgyDcKtIAG9QzG8 RNT4pUFgiY2pvSrh sleygP2lMre+LMY5rQAm uIPPEB9eMrjkjTB+PHRk MJM6gMisACivOOOybA6f HWNjX5f1ZxNtTpX7 ZJddY0JamyE6ZLAarRKp YOKwlXTTuS5ipcjfo6fo jupfAiIbOAHqYWb9TUn1 LWFsaWduOiBsZWZ0 XgB1YHO3vIVipH6vmBao smryuQ0wZco+QmlydGgg WSB6CQu4M8GjLat0CJPx yZaiWC3jmZBdZNvy Os3nsOabmYlyAL3jCIWa qlhmd205WgJdo5seVRSc iHNyERfrRRW6M79sr7L6 OBUbBCEmZEE5hHN1 oB3cnMvgsrboeJNqdAht rbEqpHgiPLuhMDtnM377 CVBxkTdwIqGyAHg0Z0Gv Tfq8ELWzxTjdUO5n vWYlTFvsNx8vpOmeuMhq EG2lAJRqbcujg305RiVa o6rzLDVxcJLfBJfqUCV4 L35ve6R0PSCvAFUp VSW9uLM2bJ2szPrqtlmt bGVmdDsgdmVydGljYWwt GEfmY053DCItfUkcEtQa kPc1I0QlYtn9NDUw rJvpZU2rzOLiWApmUk9v wSelbCooTT7uKVUyurbp p935RgRqe5xuNYRxvAJb RQcqCSS5S10cq0Y8 JGFgKSTcBZF6aSQ2tY7c bGlnbjogbGVmdDsgdmVy mOssPLgwEBthT736SJQi cDsnPlBhdGllbnQg PQhiOMv2V2JzUltpmYI+ YE58AGRiUM96vZJetFFj j6glfHo1PeQlXWKfBYZ5 gBcyJJtqw6CfTVMg O03eoFTnt1I4XUBnaGwi xRRbQiDbyLG8xJ2kNGaa qrbmz4qtdyelJaawj9gx gf87lV73A96yCZld ZHRoPSIzMCUiIHZhbGln fu2hmZ1rGo3+PGNvbCB3 hHJ3mE4jMNDeBsJ0SBof U445QpFmmNGdVsoo r7wwr2diwWq0TkF1VLHu utKilUuaRXA8t1WpVn63 P77gLZiqMPPpNDUaTLFt ZPMeeQifox2jdB7d Ii8+BCAfwMA0sLW3mH9l YzYkOpS7ZWbgV401SwEq vCFuFazwK22pE2IzlWO+ RWBiTup3PCPxxKki PG3nhXEuPUnrKt1aDOB3 NyWeNfTlIVypG1XyENBi fopduyhouZS0ZWZmEHVc oO76Ue1gkSmqURAo fTFChI7rzbdut0relqwm WyQmNUPaZVr1YPm4OGQc yXsyTaYiDGY0IwJ8JNT6 cPDgxX3irOhnrqlm nU6uV5ZrBRYzvsawEu49 nW8nMdMlDlI2WMqtNue+ HTDGV5BKJDRSKHEQFxPG AD26BY99tELvi6J7 oPD6I7WzYIDhjqcuaosj gOG7JQVoGBUeqQ89pNUf FHqkMl6oz3H6b962GQUt RJLdaG39Kg1sbBzb UMUkyOTHrC5odjgwq9lb ltktIePeKZNvDGj4VOz8 OCZhqFyrQmFhNGX5YvX3 ZJW1dQSzgL7ooErx jmgzpK1rYbk+MDUvMDUv RNu2QYcygUI+PHRkIHN0 xXykMUdgGBLkkE7fFWLm D1p9ErMcGfX6ODdx Y5WgSHVodbmvGj58mB1k XkVsJpS3NBzqM6MgipY5 AJMiqEEfPIkeWAH6X59l e7N2KYIfBTAmEZJ5 jUA2qB4njBhitghbbELa dDsgdmVydGljYWwtYWxp P967THTrcEysDci4HRjn TVBkNL06KT80lTZq m9B5lIW0B7WeCIQsnzba cbgkyHH3MMLqNMYvvE56 yMNrNBvfLt4hk0Y6t490 KCEiRDQwkW89Zq6e zZbfYXUyfCFFdV9uzovp b9vmbnffYrNvONQuNRv0 OSq9RAFomSzuUvNqQFP7 QbG4EOZ0kBPkrA4w zAquczmosB4fGhz+RkVN VVxBUX49RV56uQYss2T2 cCQ0J9ZnCSWjdgggslzl oQM9FLWsYZMacC92 yRJoDXjeRp2sb0Q6o748 VMGiAVGbuO65Fj7yaMbq AGSmqBPFgR5cxpwkd6et cjogIzAwMDAwMDt0 AQu8PHFlbEaqGxPwTKD7 QdA5XVH3sABiyT1gvUnr kowleU7vGet+C3X5Q5Pq PjwvdHI+WO97JNOz QB52zFHneIZub5lfjXr5 KgPoWGFxMHT1vRdnHGdp e1TyNYJpR60lyPHfr5D1 IGNvbGxhcHNlOyBl nXL9oU8eGAzwjdkik5bc udcnYginx1orka82xC41 K93jPKklJFOzLHNdULCk IUZhkZyves8dfK1k Ii8+UVXseCV3jEJ7gS1w CuChBzT2QLvvW472RuGv oSMwNznyh0ixs5sppZl2 IjIwJSIgdmFsaWdu PTU9a1XbVs39U47xAGvy ZHRoPSIyMCUiIHZhbGln ib3btX4hCl3+PJ8cm4fa nb94wJ06vUI+PHRk PYY0pIaiCAfaJYMblE6v QVorQgE7IXDlRdGngZ01 xPEiCKurLp4xhOztbXhj XP4sSNDaqoocm554 JbXaj4mhCHPqiDFvGPzt AAQ2I57am5D8WCOqDWOt FUN4oCU8rA5wxByemcuf bGVmdDsgdmVydGlj FZwsFMauN182SKLddPrz McCwoSAgW0qcaxUUQP9q OjwvdGQ+ZUWvNFB6sUhu KIotYYJvwR2vJXGm M7p9RsCjFxY8PFewM5Ai nnE8BALhvYKmFZFujAKD tB8jadlny6lsycitFjVn PFLzIMf7LCx5XFYf nZhyXeKcIYX9BfH7KVF7 hBPlbF6dqGvbzoxfpL9q Oyc+RklOOjwvdGQ+PHRk QAH0jEwdLWweHOAm pC5lUSVhN5d2UyQvIpN6 JPujH3TrbwA1VKOtaTUr RQDdyGZIuL7zdwhgm7hc cjogIzAwMDAwMDt0 IVs1CQIwwCncNdZcKMT4 OfD2RDN4cFNbmD7okInu yjzbmO2wTid+TVJOOjwv dGQ+VJChPII4mHeb XIqvZLNzkF2lMFApQ1g5 KqOjXkK5QHvjY5AqyqG0 RCQqsNKaDYYcaKGErX7r esqqe1zhqglvDyDw IOYcRGs2YJg5LFEqlDut BkDxIKN1UpQ9JTX5xMHs nC3toFlgfkafqU3qVtj+ BQL1CDO9CL99NS95 I3DiUjyszTEzkLL+PHRh YmxlIHdpZHRoPScxMDAl BvEfgHnsHW5iAg0mYGUj LWNvbGxhcHNlOiBj b2x (more content not included)... [facility] Provider Orderson 10-30-2023 Provider Orders [id number] 4#1.00OTGTIFF [facility] UA Lsxmy5ra 10-30-2023 UA Bacteria 1+ [facility] Comment on above: Order Comment: Urina lysis Microscopic order added on by [employer] Rules system. Performed By: #### 2 [id number], [id number] #### [facility] (DEFAULT) [address] [place] [address] UA RBC 10-15 [facility] Comment on above: Order Comment: Urina lysis Microscopic order added on by [employer] system. Performed By: #### 2 [id number], [id number] #### [facility] (DEFAULT) [address] [place] [address] UA Squam Epi Few [facility] Comment on above: Order Comment: Urina lysis Microscopic order added on by [employer] system. Performed By: #### 2 [id number], [id number] #### [facility] (DEFAULT) [address] [place] [address] 16632 UA WBC 30-40 [facility] Comment on above: Order Comment: Urina lysis Microscopic order added on by [employer] system. Performed By: #### 2 [id number], [id number] #### [facility] (DEFAULT) [address] [place] [address] 10696 UA w Micro, if Ind Standardo n 10-30-2023 Breakpoint UA Normal [facility] Comment on above: Performed By: #### 2 [id number], [id number] ####[facility] (DEFAULT)[address] [place] [address] 06918 Color (U) Yellow Normal [facility] Comment on above: Performed By: #### 2 [id number], [id number] ####[facility] (DEFAULT)[address] [place] [address] 98607 Glucose (U) [Mass/Vol] Negative Normal [facility] Comment on above: Performed By: #### 2 [id number], [id number] ####[facility] (DEFAULT)[address] [place] [address] 69914 Ketones Ql (U) Negative Normal [facility] Comment on above: Performed By: #### 2 [id number], [id number] ####[facility] (DEFAULT)[address] [place] [address] 99370 Micro? Indicated Invalid Interpretation Code [facility] Comment on above: Result Comment: Resu lt created by rule GL_MAGR_ADD_UA_MICRO Performed By: #### 2 [id number], [id number] ####[facility] (DEFAULT)[address] [place] [address] 64542 UA Bilirubin Negative Normal [facility] Comment on above: Performed By: #### 2 [id number], [id number] ####[facility] (DEFAULT)[address] [place] [address] 04826 UA Blood LARGE Abnormal NEGATIVE [facility] Comment on above: Performed By: #### 2 [id number], [id number] ####[facility] (DEFAULT)[address] [place] [address] 06130 UA Clarity CLOUDY Abnormal CLEAR [facility] Comment on above: Performed By: #### 2 [id number], [id number] ####[facility] (DEFAULT)[address] [place] [address] UA Leuk Est MODERATE Abnormal NEGATIVE [facility] Comment on above: Performed By: #### 2 [id number], [id number] ####[facility] (DEFAULT)[address] [place] [address] UA Nitrite Negative Normal NEGATIVE [facility] Comment on above: Performed By: #### 2 [id number], [id number] ####[facility] (DEFAULT)[address] [place] [address] UA pH 6.0 Normal 5-8 [facility] Comment on above: Performed By: #### 2 [id number], [id number] ####[facility] (DEFAULT)[address] [place] [address] UA Protein 100 Abnormal NEGATIVE [facility] Comment on above: Performed By: #### 2 [id number], [id number] ####[facility] (DEFAULT)[address] [place] [address] UA Spec Grav 1.025 Normal 1.001-1.035 [facility] Comment on above: Performed By: #### 2 [id number], [id number] ####[facility] (DEFAULT)[address] [place] [address] UA Urobilinogen 0.2 mg/dL Normal 0.2-1.0 [facility] Comment on above: Performed By: #### 2 [id number], [id number] ####[facility] (DEFAULT)[address] [place] [address] Urine Source Clean Catch Normal [facility] Comment on above: Performed By: #### 2 [id number], [id number] ####[facility] (DEFAULT)[address] [place] [address] C Urineon 10-18-2023 C Urine >100,000 cfu/ml Escherichia coli ORGANISM EC ----- SUSCEPTIBILITY ---- ORGANISM ID: 1 ANTIBIOTIC INTERPRETATION TRACY STATUS ORGANISM ECEC Amik S <=16 Verified Amox/Cla R >16/8 Verified Amp R >16 Verified Amp/Sul I 16 Verified Azt S <=4 Verified Cefaz N/R Verified Cefep S <=8 Verified Cefo S <=2 Verified Ceftaz S 4 Verified Ceftri R 8 Verified Cefur S 8 Verified Cipro S <=1 Verified Ertap S <=0.5 Verified Gent R >8 Verified Imi S <=1 Verified Levo S <=2 Verified Nitro S <=32 Verified Pip/Srini S <=16 Verified Tetra R >8 Verified Tobra I 8 Verified Tri/Sulf R >/38 Verified [facility] Comment on above: Performed By: #### 6 [id number] ####[facility] (DEFAULT)[address] [place] [address] Provider Orderson 10-15-2023 Provider Orders [id number] #[id number] [facility] UA Standardon 10-15-2023 Breakpoint UA [facility] Comment on above: Performed By: #### 1 [id number] ####[facility] (DEFAULT)[address] [place] [address] 55559 Color (U) Yellow [facility] Comment on above: Performed By: #### 1 [id number] ####[facility] (DEFAULT)[address] [place] [address] 25696 Glucose (U) [Mass/Vol] Negative [facility] Comment on above: Performed By: #### 1 [id number] ####[facility] (DEFAULT)[address] [place] [address] 82538 Ketones Ql (U) Negative [facility] Comment on above: Performed By: #### 1 [id number] ####[facility] (DEFAULT)[address] [place] [address] 07855 UA Bilirubin Negative [facility] Comment on above: Performed By: #### 1 [id number] ####[facility] (DEFAULT)[address] [place] [address] 20027 UA Blood MODERATE Abnormal NEGATIVE [facility] Comment on above: Performed By: #### 1 [id number] ####[facility] (DEFAULT)[address] [place] [address] 94385 UA Clarity TURBID Abnormal CLEAR [facility] Comment on above: Performed By: #### 1 [id number] ####[facility] (DEFAULT)[address] [place] [address] 59962 UA Leuk Est LARGE Abnormal NEGATIVE [facility] Comment on above: Performed By: #### 1 [id number] ####[facility] (DEFAULT)[address] [place] [address] 07226 UA Nitrite Positive Abnormal NEGATIVE [facility] Comment on above: Performed By: #### 1 [id number] ####[facility] (DEFAULT)[address] [place] [address] 65900 UA pH 6.0 Normal 5-8 [facility] Comment on above: Performed By: #### 1 [id number] ####[facility] (DEFAULT)[address] [place] [address] 00808 UA Protein 100 Abnormal NEGATIVE [facility] Comment on above: Performed By: #### 1 [id number] ####[facility] (DEFAULT)[address] [place] [address] 67887 UA Spec Grav 1.025 Normal 1.001-1.035 [facility] Comment on above: Performed By: #### 1 [id number] ####[facility] (DEFAULT)[address] [place] [address] 97574 UA Urobilinogen 0.2 mg/dL Normal 0.2-1.0 [facility] Comment on above: Performed By: #### 1 [id number] ####[facility] (DEFAULT)[address] [place] [address] 91598 Urine Source Clean Catch Normal [facility] Comment on above: Performed By: #### 1 [id number] ####[facility] (DEFAULT)[address] [place] [address] Coding Summaryon 08-16-2023 Coding Summary [employer]Base 64 AjgjwcjkIEb2dJg+PGhl YWQ+GM7LZPCqJ32paUMy hP5vF2GHATpMWqrhLWRV JDyJOiCeenOtSB1rdOWo ZXJu IC8+ZP0fLEEyYrvelBGz z9M9mWQ5J26jtu8mTUnk fZE5DGWqZcNydzymr2co oDk7NHzgSperTiDe YIBoyH41ZTX5xC73Vw51 jBIvsAUci8qisAf5UtNw ABPbPBX7bTvzXDxcp8Lt HPFmJ18tkTBji3H4 IGNvbGxhcHNlOyBlbXB0 bO0yTVxixjvgf6hamobh Jsw7vt28tEFhe9X0zLW4 P3PltrW9ARJorCCd TdshpQQAgC5pglxuy2be vyenErBcNJHiKVh2WSv0 NVZpiEhwHpPsOX36LQJ9 SIWdzvMqH8RvMRQa bWmoBoA3n3R1De1FM3KG ScamV2CBMZSQVFpqkNW+ OU72tt56Y4BwTjycMee5 GCJxQYT9cOO9iF7l QWWaZVttb0P8bXQ5A5Ys naGpoz9ne0vsUGZjXDiz E01buQEoc5D9RSFczBL0 VEXksAqoToTcvJ55 Oyc+OEPraOsvd3XbJxgl p2nvh7yavZr7OswrBTTs xhFjcFeqXMF3k1TsEj9j OOCiaIJ3pAJ8iD5p YiMjRdS5XBgtM223OuOu bZDeEtjpD57mN6EhrPW+ AAWpOzr6WXResBomAE1t Z0LvJZHzwleghMLi kXtwVA3yEFXckpbeRBDo dZ0sJTXjY0p7QrYoBwR3 QGhoY0SiXVTqciyhKb20 mB3xFuTyPcX8OXgk X1WdjwJ3QHLdiNJuOFwf WKC3H62dy9D2HQGcZVLh UQI7hYG2mN3zqRjsnhuq bGVmdDsgdmVydGlj OSaoVRlgS604UQRodIfu PkNvZGluZyBEYXRlOiAg MDUvMjQvMjAyNDwvdGQ+ JSFyYJP9iSpiQJIa mDUaEAbhRc3vvObyqDqw EP8fMBAenjxzAAEuxU1x JBDkgKRoaCfgYR3fVQNo frxnf727WyHgGCS0 BRGzyNOgB2UxeQ3pBzLk PTUoWRVfJ1LbzZSxGVtd Y174HDpoTaM2EHRhonDh H4TiJFFfeLkoJyP4 q6Q0Ur6Se5OdftloM0Ty vTRtLzVmScflMRl6Q6Ar PjwvdHI+EW99PZNoLV50 ZFo3HGQ2gSryIZsi VBFhP0IqiK1cWqQgATLa ZGRkOyc+PHRhYmxlIHdp ZHRoPScxMDAlJyBzdHls NW0dGn6dYVPhDXMh tTymtENlMlTkd8ryOGWp SLdlLE4gyNkzZ2VimIJ3 SWHrk1b1Ug58G03hD1Nt dXA+JSIxaEI5bMK2 rX3sMmPwBuA8CRbkB895 LjXmeQFuSvdto9lte5pk sNw4SaC8NOBmidOidPkh KTU8y3KlBx18T56s IHdpZHRoPSIxNSUiIHZh sAmylw8xeH0bLo7+PGNv pAI9fHC2cF5dWrAiBeH9 SKszY262OdFobVVs Gucpa6isy0silTs0SyOc XYAabfNuaPzhKAX5q0Sw Xv97A6VunFcjs4XoRvw9 vc88yHUjw7Q6zTC6 Q5RuJAPnkvcwjLKjhZgx QD7uTAHwvkaxNTWioU2p ARIgQ9a4AyKqIvU5DZgf Y8AhtmM8UFLggDOu ESCetUDWiD0qazhkv9qy cyebNoOcASIrSFd1ZPt8 LNMsbJepSqPuWGX9UbZ9 AXD2lMBzbI5dzMww igihaM1lXmf+LDE5rPIk sWACNX0pBjsdcKQ+PHRk BJH4qWtmVUscRBRbjJ1a VWNrD6h3XlApWoI0 JXjiG0XwuxB6QFFnmMGc KDSwtMAHjL7whqfbs9mr tercHcZeJKTlMVn2SKv4 LWFsaWduOiBsZWZ0 DaC5DQR0sQHxxR3vcXnr yurslY1iYjr+QmlydGgg MKJ8YIw9R2DuRam9MIFp cZexAS9htCUqIVgs Jy0ybZwotEknDY1jCVXm lnmos448EwRcj4cmMFMc nGQgNTlwPSU2U03xs8G9 USOqWNGsJFM6lLC8 pO6utXquqconxYTdzTry yhSzfExyRYkdRGwdD778 MWCgyKwkPeKjWSb0S1Ve Kss1URZmhXkcWY0w iINwXAytGd3azTqevFhv ZT2cSEPxzfmwn384GxNj x2chWVBkpOJiEAfcZRJ3 F62eo2L6NWBiASRv UBU5mDD7jI3fcRwactgf bGVmdDsgdmVydGljYWwt AIisA134KFYevPdjLpBo lAf4Z7EpIyt9IPWs fXryAF9dlDOgAXqlZy4y zKvzzUzyPH2tQDNcircj k578PjHqb1ahRNHeaMYx ECwsJUH3W91kj1R8 MGUkYXSjGMN3zQP7sL8s bGlnbjogbGVmdDsgdmVy tBypNJpnAMytC314EMHu cDsnPlBhdGllbnQg RIegVJl2U7JeAthxvBX+ KH32SRJcII57mPGmkDTj e5jgvOe6XnApQLPkUNU8 lUctVLbym3FjTVIt I07zqIPhc9I6VMQovHlu ePIpRzYkoUQ5sL3dRKat lufwh3beidozFgcdk8za cm77mE24L92aXJcm ZHRoPSIzMCUiIHZhbGln lg4liJ9wXt0+PGNvbCB3 fOR1dI8lKTUhJxQ4TSuf U305CdTxhDZgMzyy v3tue0kyyCt4XfB7ITZg flOjgKvmPLS8a8ItAz14 I04wHChiKJAwRRRkDGHo SJAotMxevh5keU5n Ii8+AOFpeZJ3qVM0oL4s SdFtVrA4ZCcfL168MuOj iCLxDrevA95rE5TwgOO+ JEXaEsr0AWSlwSxp QX7mtXOhVLmfDd3lQNC6 CxQjBdIgVToqU6YkXSGj dbnycotcvJU5JBJwYZGk uK48Jx8csDmnOMXy pAAJoA8szsbbk1yoegur EwKvYRBoKUi6YLy8TSAx hWrjOuVpEXA0KyR2CDV1 lRZmeR6cuFmdring aQ1iO8QbBJIzoyniVq36 bU6cEsDwYnY7PSqhBfw+ NJSPW3PJGKKPSCSLThUE KR15IT83rXTwd0D0 bYN9B5QfEZFeiwhaemdc dMU8MSPsJKUywF10yKVv TAsnLm3qr2Q8a450HSIr SCEheH51Kl5saAug QZWmwFKDbH4entbhh8oc evgbQvLjTYHsTPk0ZFg4 MARruBkvAzDmYKK2BmU9 ZWB2nCKjcG3rgGfp vmajsJ2mPdr+MDUvMDUv BZm7AJmzsBL+PHRkIHN0 lMnlCJhyOYFtuQ6fXIAd D5a3FcPuUcQ1PLey K7BuBPHyzwkrGg55rD1n EzKmWnU6PQwuZ9EbkrC7 UZTumOYyKXvzFFH7K28d n4X6VILrRRKyOTA6 kBP5rV6eiVeiauipuZGy dDsgdmVydGljYWwtYWxp V472EQWfkIsdHap4ZRtx ESLlMV03CW23tMKb a0W3sIT2N5NmVSHmcepd nvprnID5FBWgLRUjlS07 lFTrEJzhAp7rj5T9n423 LCVsBMZncT87Eh4s pWdgMOCogCPApI7xyslq z4wsezdmWmUhWKGtMMz6 NNz5LMEraApuTsNeXJH3 YrP7GOD9nYEpzB5b tTjxeopkhG8hGyr+RkVN XMoTZV40IU79rTVhy0S5 bXD9R7ScSAUmrqejhvti nLA0AYKnLYQutQ67 aETjFToxXu7xy5E1m495 XJPmSLShyJ31Rb9nsKby XHLeqBESoJ0xngzuh3aq cjogIzAwMDAwMDt0 HIf7XVAnmMsdIpFnKDR3 GjV3CUK4jMMllA8lfGhk idnnzR4yPqz+G3I7X8Bi PjwvdHI+DI49NGAa RP10jPMubUNmb1jmdAt8 XrHdSQLiDRI6cMgcAVca h2SdCEWvK67mgIFhz3F9 IGNvbGxhcHNlOyBl zAU6vA7bFYusvcpol2jj zcgiAuwfj1vmdm68oZ58 A14dZWowALVpFMHoZGNv FYUifWewhs2mtQ4e Ii8+BRRuzKI5sXG7kQ9y QzPfMyM8HCaxH894ZdNf sZZeGawyc4kqw2aozAq2 IjIwJSIgdmFsaWdu FSM4d2MyBf62O74bUEqp ZHRoPSIyMCUiIHZhbGln ut5khQ9pOx5+HF3yt3ls yf98dF94xNL+PHRk FFO4tGioTMidLZXltP0r AZkdCyZ2IARlIrBkkY87 hRYeRPizLv4ocPujiWqp CI0nSMFnwbskl097 UyMtm0fxDUUxwCErTGuv QPF7K37mp5J2CNUvZSIp BYV4rZY1dR9wtEheibps bGVmdDsgdmVydGlj FJgzXDnfO019DADfzNzs YvPhpFVxL4ndtuOLEZ3e OjwvdGQ+RJJiRYA3oKpv KWkhJHVhlF5hBHXo F8l2OoTuTnM7ZYgdN9Vj keV7MAJipQDnNUPnrMMK hL5axdrbt7vxxmezNpXy AUHhJBx8BHb4DFHh gHmnIjRuZFW7XkT4HHB8 zRMppR1xkVytbjugaF9d Oyc+RklOOjwvdGQ+PHRk QVM3cCokGCdqBQNa wA9bJYXqP1v4GdNyJuC4 OPyoW8WehyK9TRZmyYEn XZQkqALDmV7cqqobg0ol cjogIzAwMDAwMDt0 BFe7NZLvsCgkZfTqXQV2 NaK9MQH2sJOumR5mzQaj aursxN1kHjr+TVJOOjwv dGQ+PVLlUIR1iTuh XNbrGZWjfF1oPQMtM6n5 DdUsRjN1MWcaO8RqylF3 SJGdxOTcKQClsWVFrC7g sxodn2xdshrrNjPe OENaOIb1XCz8VLJawCrn AjRwAJA6UyP2KHB7dZXq nO0rtGyyoxgweR5xZip+ GTU9YPG4QK16QH42 H8BiOljoyNHtmEH+PHRh YmxlIHdpZHRoPScxMDAl OsRvsHleBR0qWd0dPEVe LWNvbGxhcHNlOiBj b2x (more content not included)... Normal [facility] Ambulatory Patient Summaryon 08-15-2023 Ambulatory Patient Summary [facility] [address] [facility], [facility], [address] - Visit Summary For ALLISON WATSON Age: 73 years Sex: FEMALE : 1950 Address: [address] [place] [address], [address] Home: Work: -- Primary Care Provider: KARLA FLOREZ MD Race: White Ethnicity: Not or Language: Indonesian Health Plan: 1?MEDICARE, 2?[employer] [facility], 3?MEDICARE Reason for Visit: Pt comes in with sore arms and ear pain Prescription Information: If you have been given a prescription for narcotics, seek immediate medical attention if you have any difficulty breathing or any sudden status changes such as confusion and sleepiness. If you or anyone you know is experiencing suicidal thoughts, mental health, alcohol and/or drug addiction problems; contact the [facility] 15/10 Crisis Hotline -Text 4HZIB zp [phone]. Follow-Up Information With: Address: When: KARLA FLOREZ MD [facility] [address] [facility]/ [address] [place], [place] [id number] In 6 months Future Appointments No Future Appointments Scheduled Future Orders No future orders Additional Goals and Instructions: Vitals and Measurements this Visit (last charted value for your 08/15/2023 visit) Vital Signs This Visit Peripheral Pulse Rate: 78 bpm Pulse Site: Pulse Oximetry Systolic Blood Pressure: 148 mmHg Diastolic Blood Pressure: 84 mmHg Cuff Location: Left arm SpO2: 96 % Measurements This Visit Height/Length Measured: 155 cm Height/Length Measured (inches): 61.02 in Weight Measured: 84.82 kg Weight Measured (lbs): 186.996 lb Weight Dosin.820 kg BSA: 1.91 m2 Body Mass Index: 35.3 kg/m2 [place] Body Weight Calculated: 47.854 kg BSA Measured: 1.91 m2 Diagnoses This Visit Cerumen impaction (H61.20) Cough (R05.9) Shoulder pain (M25.519) Transverse myelitis (G37.3) Laboratory or Other Results This Visit (last charted value for your 08/15/2023 visit) No Laboratory or Other Results This Visit Medications and Immunizations Administered During This Visit No medication administered during this visit All Known Current Prescriptions and Reported Medications New Prescriptions this Visit furosemide 40 mg oral tablet (furosemide) 3 refills authorized Instructions: 1 tab(s) Oral Daily as needed for leg swelling Prescriptions gabapentin 300 mg oral capsule (gabapentin) Take 1 cap(s)(300 Milligram) Oral (given by mouth) 2 times per day, 1 refills authorized Instructions: To last 30 days. HAND[employer]AP [employer]ACARD (Misc Rx Supply) 0 refills authorized Instructions: FOR 5 YEARS ibuprofen 800 mg oral tablet (ibuprofen) Take 800 Milligram Oral (given by mouth) 2 times per day, 0 refills authorized omeprazole 20 mg oral delayed release capsule (omeprazole) Take 1 cap(s)(20 Milligram) Oral (given by mouth) every day, 0 refills authorized Home Medications Multiple Vitamins oral tablet (multivitamin) Take 1 tab(s) Oral (given by mouth) every day oxybutynin Take 15 Milligram Oral (given by mouth) every day Oyster Shell Calcium with Vitamin D (calcium-vitamin D) Instructions: one tab po daily triamcinolone 0.1% topical cream (triamcinolone topical) trimethoprim 100 mg oral tablet (trimethoprim) Instructions: 1 tab every other day Vitamin B12 1000 mcg oral tablet (cyanocobalamin) Take 1 tab(s)(1,000 Microgram) Oral (given by mouth) every day Ear Irrigation Ear irrigation is a procedure to wash dirt and wax out of your ear canal. This procedure is also called lavage. You may need ear irrigation if you are having trouble hearing because of a buildup of earwax. You may also have ear irrigation as part of the treatment for an ear infection. Getting wax and dirt out of your ear canal can help ear drops work better. Tell a health care provider about: ? Any allergies you have. ? All medicines you are taking, including vitamins, herbs, eye drops, creams, and rplc-llu-n[facility] medicines. ? Any problems you or family members have had with anesthetic medicines. ? Any blood disorders you have. ? Any surgeries you have had. This includes any ear surgeries. ? Any medical conditions you have. ? Whether you are or may be . What are the risks? Generally, this is a safe procedure. However, problems may occur, including: ? Infection. ? Pain. ? Hearing loss. ? Fluid and debris being pushed through the eardrum and into the middle ear. This can occur if there are holes in the eardrum. ? Ear irrigation failing to work. What happens before the procedure? ? You will talk with your provider about the procedure and plan. ? You may be given ear drops to put in your ear 15?20 minutes before irrigation. This helps loosen the wax. What happens during the procedure? ? A syrin (more content not included)... [facility] Rad - Other Radiology Report on 04-25-2023 Rad - Other Radiology Report [id number] [facility] ANOOP DIGITAL SCREEN SELF REFERRAL W OR WO CAD BILATERALon 04-18-2023 [facility] ANOOP DIGITAL SCREEN SELF REFERRAL W OR WO CAD BILATERAL EXAMINATION: SCREENING DIGITAL BILATERAL MAMMOGRAM WITH TOMOSYNTHESIS, 04/17/2023 TECHNIQUE: Screening mammography of the bilateral breasts was performed with tomosynthesis. 2D standard and 3D tomosynthesis combination imaging performed through both breasts in the MLO and CC projection. Computer aided detection was utilized in the interpretation of this exam. COMPARISON: 02/02/2022, 08/10/2020, 09/16/2018 HISTORY: Screening. FINDINGS: The breast tissue is composed of scattered fibroglandular tissue. There is no suspicious mass, suspicious microcalcification, or area of architectural distortion. IMPRESSION: No mammographic evidence of malignancy. BI-RADS 1 BIRADS: BIRADS - CATEGORY 1 Negative, no evidence of malignancy. Normal interval follow-up is recommended in 12 months. OVERALL ASSESSMENT - NEGATIVE A letter of notification will be sent to the patient regarding the results. [employer] recommends annual mammograms for women 40 years and older. Interpreted by: Sunil Jiang MD Signed by: Sunil Jiang MD 04/18/23 Final result Normal [facility] Coding Summaryon 04-12-2023 Coding Summary HTMLBase 64 DbihmusnTYq6rSx+PGhl YWQ+LM3JZRYeU89bbCKn gI9gO9BWFTwWBapeOWPL KDsGMxVlzfQhUS6tuCDg ZXJu IC8+RO4cEYXtNiajoQCu s1V5xCW4D93qta5wVZln oLG5ZKDyJkMvroqsx3uo lUe8JSgrXlrpWtUo LJDfkO88FJP1jD53Uh50 tOObwQGgd3btoGl0UfPe CQIyUBN9hZkgFKlvu5Qh NRMbM35ooSNwj5C0 IGNvbGxhcHNlOyBlbXB0 hP4aJCmyzhvej6wwrpnq Voq0if10wXTvg1H1jMR5 Q1CztmB3ELWnfYTv VwtcuXENpW1sgaeey3uk etcvWnXeENCnLBw7FAr5 NZHeqLfgOgFfJH61LSL0 JLLekyDlJ5TdXRLy xPjpQoD0y1W4Wo9ZH7VF HgphI0KQLDOSZUelfJU+ TN39fk89J9RfBkrvFgk0 UVObCSM7nRP8iD0j MPNwAEqpy2C2vUY7L3Zx hbSupd0es5kbXTWcEZfh U00apKEsu1H2PSMnfXH1 LWXoqTxrTmCmjI65 Oyc+JMHggJhfk7BhEchy f3ywy5ffdCs6HybwTBQc eaPtlFevPEC7a7BfLx9g YDWmxOJ8nTQ4aO3m RjVpDpE8UBdtR174VdHk wSShXhklZ34lW5HouMQ+ LVMoTty1LJOwpAdeHG0a P2WnQXBrwmyhnZTc yIvtMU8cUKWyuiwbUIEa wO4yLCQwQ6q6ReTeJbY1 FJfiY5FqTCYpqlorZo21 iN9uVmHyCbU4NPqj C0BgesA4IWXpeZOsHUzy IBZ1C32fi2F5FIXtFOVf VEM7lHJ0nY0xiSscitmv bGVmdDsgdmVydGlj IIgtLZaaT927STAzgIlz PkNvZGluZyBEYXRlOiAg MDEvMTkvMjAyNDwvdGQ+ SYBrEIT2oPflBHIw lZMkWCioUz1htAlduJjk FT1eXPJrbhtjNDZgrE7p EIJhqBZxdPxzQN9uWVGi cwsnr406UjNmPUH1 QETwwZDrX7BvvV0oRyBe VTOqLYLxU1MqiZGsLVst H377NIalLpE5GWEfrpMc K1TrNWXgnVcvAoO4 e3W6Hv7Ke5UdxkjtO3Ro wVMfDkXuAxreOKc8A9Lk PjwvdHI+QJ08SSLaRN75 RCn3WIU5cFpyDTgf RKJkF1WtpM8oVgOzQREf ZGRkOyc+PHRhYmxlIHdp ZHRoPScxMDAlJyBzdHls NR1tPb2jLMZzUGDy qTaatHBnDeJmf4ssXBYb QVzvBF5diTsiY0EepZG2 NULwa4n6Pa33X68qS5My dXA+GPWjdXS4kBG6 wO6gCkYfPlA1HFufO351 DfYryZUfOohvz8cav2ga uSk3HoD1EYYardZeaFnb ZPC1r4QlSx10C15d IHdpZHRoPSIxNSUiIHZh mBaeac7ugQ2qYa3+PGNv zTV6mOF3aW8gBkVpOoH8 CJydG566AiIieHPz Uglty2tvo7uetTl8EyUs AYUkdzDuiPvuJGC9j3Jn Iz46I3FujUxwt7JnEch1 qm25kLXlr0D0fIC4 M5DqGLRpwlopqWGgeJce ZW0jTKOqfkuuRJEujM0g ZVVtR2y5BqJqPeO7YZwv F9YhogX9GZGszVXq QBPboKPBnH5cvxkcu6jy txxfYgGrXUCmNZn5AHk8 RGIejYzvQxXiWSF9AqJ4 CYM5vBLdhG3thFnz rhhsjH1aBth+LBZ5uBZm gDPUFQ1zEbnfpNJ+PHRk UIT2jVkrQOmaSKZfxZ8s JJQmE9t3IaTkFjR9 WLdaG9IbasR4MQTauWPd SVPtdFTJqS2ykabkj8kl raciTrWwOWFjCIq5NJj2 LWFsaWduOiBsZWZ0 ZyW9RHA2oJEwnS5weAsf rzjhsG9wDxf+QmlydGgg KIV3RJi6B4PhGor9LFJo hSqvID5euCNqSZqx Ys4jcWjtnBawWL1yDAVs tdhdv168DoHqj5onXQRm cRQqMQkbADG7K68fz8Y9 WGBuKVAdZRK0qZX1 nV9ifEhpnhpmtVRpbIuw bkFvqHfwZOblBXhfK281 ZBUkkVzmShQvOSe1U5Rq Tcg3ZSBetFizRN2p gOUgPUpcKn9cjGlvfPij WL0pDIOkvtqrx203VnXb t5ixYFGlcZDjUEedSHC7 L98nv9Q0BQBjPADg QLE4eHW8fN1ljMxrgbrs bGVmdDsgdmVydGljYWwt SNelB242GIKkrXolHwZh aDz3V0SeJdb5CILh lKjbFD2bqNAwZWwrXi0e rVqdsZuzDS0cXDThysbk l760JzQrt3hvTZYqjIRe GSbaOCD3P24qv3V2 JTWkZEIsIUL0iEF5eU8d bGlnbjogbGVmdDsgdmVy xOvkDIwkOMjyB213YFDy cDsnPlBhdGllbnQg TYftGEv5P5NuItuldZX+ YI37OUEuVO19bNPjuQAh t5wckQt3ItEgMHLpPQH9 aFecWAhgk5KnAFIf F44pxASqw0L1HLLmoAcg jGMoOwCedIO2aD5zRGdo ycwrn1djekdhTftmc8st iy32dP74K38xQWrf ZHRoPSIzMCUiIHZhbGln fv6afI5iOu0+PGNvbCB3 zKJ5rW1xTVTfKqM0NJhs E765NtQagOCsHrlj n9haq7sghEu8JtA6ATGj ohItuEatUSU7l3JsWq77 J13vJTfrOXKxFMYtHGWr YIYesTznvc2ysS1q Ii8+JBHbsVN9dHO9jR9g QgVzDaV4TRdiK741GkFs fNXrGapoU06zU6HatNE+ OWZkUwd2SCLclYdb FV0qaRLyFVjbAb0tUZY2 KfVgVyEbMVhkQ2PrAZRd gikevgpgnQG0QLBfGCFx vX23Nq0rbIyjDGOn vPIObG6cbhljq8hmdbnk CjGlMPNfKDe2TWe8JPSz kPhdVcUvZRC6ViW2WKS1 kPHdpZ2nvDbilwtq uC8gA5YtMSDoybsxFf93 wY1iVyDqVoD9QFrlAas+ QYLMX9LGLZTBJQWZKiOI EV03QW02jHBoe8A1 cGA0O1CyJXQenipwjfqs aCO5LMZhURAynA16pSQx ICgrBn9jg8G4h003VBFj VUWilV44Nj6irHck WXShqBRGzU3bnznht3un gccfUbJtUDNlPTt7AZo9 OFMijWwnFtApAHX8NmC6 TFS0yYOexW6udItz ixhbbT5xBuj+MDUvMDUv OFb5RRjsaSE+PHRkIHN0 dNngUIebVFBooO6iNOAg L1m8HySaEnN9HWoc R0XuOKDjgfhdQd33yB2n HzUlZoE6KIghG9YiveV9 NCMaoWAcTIghVST2K06i s1S3UZDiBGPzDFQ9 pKK9uW8ruRwitgdsqUOm dDsgdmVydGljYWwtYWxp U146MQMwuMswUev4QCrl JRDjLF39ZH91qTVx s1H0kAI7X8TwCWOoyhap fbwjbDQ2XXHyNONygN61 nVDuMIwbLr0cb0X6i852 AAOvKZQsqM54Fb2z hPzlSGLkbRCJrM4kacrw r3xbndvbPoRoBVHmTDz8 AAz1MWXajLmtTvXtVHK8 XdK0MJD9fUUkjZ9z bOthncvryA7gUia+RkVN WNqGZC59SM16xPVag4Y7 iTV3Y2WzNHFosfzifuml tOV3APYaKHDbvQ76 xKVpXLkuMg3fs7T9e881 IWTdXDOzfP31Po6muZgt TOXrdKRCfF1agdqbn6jo cjogIzAwMDAwMDt0 XTk1CQOlmSpjXhFeOIN3 VrV8HGK7pPIpxF8ycPbp ecwdnL2kObv+G4L3N0On PjwvdHI+UI55PASx WJ76hARgtWDel9jdrPo0 GwWmXDSrHVN5jCqeKEwm h7PeOEYoE01kzDKhu2J4 IGNvbGxhcHNlOyBl vBP7mL5hYDigzfmok4xr vgviPteoj7faey75xS23 K58gJEruSAZiOCFaJTKj XFBlzVcbnz9yqO6c Ii8+COUoyOG5zNM0hU8e CeYvJrI7TJveA998LrJa yHUlZayge7poo8rruDh6 IjIwJSIgdmFsaWdu ACJ4s3ThYu27H67hGFku ZHRoPSIyMCUiIHZhbGln lb2cuE6jJz5+UF2xz8oh yh01hH79zLG+PHRk OHK6ePeyPFyuFJFtuS5l LNklFsZ1RBEpPjZplF98 lRBxCVhbTa4yqKxvmPkw ZW0mPYZnonaod164 GfAwm4hjVGEcjGCwRSza USP8O48kl9V7FXCeIVFa AXU7wNF4zB6heOrenzsd bGVmdDsgdmVydGlj UAuwZFomF510AHWbyOfa IpEdxGXnM8xqhjWTQD6u OjwvdGQ+DOEsBSL1gJmt GTitBPCvqM3hVLJm Z4g0QfSqSmH4BQdzA3Jr sfV5AWXmfQOpWWAfsIEO wR2zsttni5hhwzoaTdFy AJPhDYc2SFx9EUUd bSuyMsBxJTJ6FhH7DUH1 hIQhgA2zlDbcjyhooP9i Oyc+RklOOjwvdGQ+PHRk PJL4nHkuBWdgUYYt aP4aZAJkA9p3DxNoAqD0 JDevN8DoevZ9GSXovSOe RECgfGLFsL9xjhrzo2hq cjogIzAwMDAwMDt0 YOv5BJYxyPcpAnUzSPT9 PmD9NJA1aSYyqT9oiKvu xsplfY0eOyx+TVJOOjwv dGQ+JVZkLCK2zDnc RPswWMTvuG9iQUUrF3g3 KjKsIxR9WVadE4BtodT9 GKOqfUUjHBQrjSEGpK4m medtl3lffzysCkGs WKKbVBn1ONq0ZBDmzQcz MvUmQRK8CtG5AKU5rKHd zF3scWdbeqvzxQ0pYuo+ ZDG7NYL2MQ02OY36 N4DyQbgbeCZemDS+PHRh YmxlIHdpZHRoPScxMDAl VuPooYhiNL2pKj7jKVCi LWNvbGxhcHNlOiBj b2x (more content not included)... Normal [facility] Ambulatory Patient Summaryon 04-09-2023 Ambulatory Patient Summary [facility] [address] [facility], [facility], [address] - Visit Summary For ALLISON WATSON Age: 72 years Sex: FEMALE : 1950 Address: [address] [place] [address], [address] Home: Work: -- Primary Care Provider: KARLA FLOREZ MD Race: White Ethnicity: Not or Language: Indonesian Health Plan: 1?MEDICARE, 2?[employer]/[facility], 3?MEDICARE Reason for Visit: six month follow up/med refills Prescription Information: If you have been given a prescription for narcotics, seek immediate medical attention if you have any difficulty breathing or any sudden status changes such as confusion and sleepiness. If you or anyone you know is experiencing suicidal thoughts, mental health, alcohol and/or drug addiction problems; contact the [facility] 15/10 Crisis Hotline -Text 4HQZV sv 313767. Follow-Up Information With: Address: When: KARLA FLOREZ MD [facility] [address] [facility]/ [address] [place] [address] In 6 months Future Appointments No Future Appointments Scheduled Future Orders No future orders Additional Goals and Instructions: Vitals and Measurements this Visit (last charted value for your 04/09/2023 visit) Vital Signs This Visit Peripheral Pulse Rate: 78 bpm Pulse Site: Pulse Oximetry Systolic Blood Pressure: 140 mmHg Diastolic Blood Pressure: 80 mmHg Cuff Location: Left arm SpO2: 97 % Measurements This Visit Height/Length Measured: 155 cm Height/Length Measured (inches): 61.02 in Weight Measured: 84.82 kg Weight Measured (lbs): 186.996 lb Weight Dosin.820 kg BSA: 1.91 m2 Body Mass Index: 35.3 kg/m2 [place] Body Weight Calculated: 47.854 kg BSA Measured: 1.91 m2 Diagnoses This Visit Shoulder pain (M25.519) Transverse myelitis (G37.3) Transverse myelitis (G37.3) Laboratory or Other Results This Visit (last charted value for your 04/09/2023 visit) No Laboratory or Other Results This Visit Medications and Immunizations Administered During This Visit No medication administered during this visit All Known Current Prescriptions and Reported Medications New Prescriptions this Visit gabapentin 300 mg oral capsule (gabapentin) Take 1 cap(s)(300 Milligram) Oral (given by mouth) 2 times a day (scheduled), 1 refills authorized Instructions: To last 30 days. omeprazole 20 mg oral delayed release capsule (omeprazole) Take 1 cap(s)(20 Milligram) Oral (given by mouth) every day, 0 refills authorized Prescriptions HANDICAP PLACARD (Misc Rx Supply) 0 refills authorized Instructions: FOR 5 YEARS ibuprofen 800 mg oral tablet (ibuprofen) Take 800 Milligram Oral (given by mouth) 2 times a day (scheduled), 0 refills authorized Lasix 40 mg oral tablet (furosemide) Take 1 tab(s)(40 Milligram) Oral (given by mouth) every day, 0 refills authorized Home Medications Multiple Vitamins oral tablet (multivitamin) Take 1 tab(s) Oral (given by mouth) every day oxybutynin Take 15 Milligram Oral (given by mouth) every day Oyster Shell Calcium with Vitamin D (calcium-vitamin D) Instructions: one tab po daily triamcinolone 0.1% topical cream (triamcinolone topical) trimethoprim 100 mg oral tablet (trimethoprim) Instructions: 1 tab every other day Vitamin B12 1000 mcg oral tablet (cyanocobalamin) Take 1 tab(s)(1,000 Microgram) Oral (given by mouth) every day Shoulder Pain Many things can cause shoulder pain, including: ? An injury to the shoulder. ? Overuse of the shoulder. ? Arthritis. The source of the pain can be: ? Inflammation. ? An injury to the shoulder joint. ? An injury to a tendon, ligament, or bone. Follow these instructions at home: Pay attention to changes in your symptoms. Let your health care provider know about them. Follow these instructions to relieve your pain. If you have a sling: ? Wear the sling as told by your health care provider. Remove it only as told by your health care provider. ? Loosen the sling if your fingers tingle, become numb, or turn cold and blue. ? Keep the sling clean. ? If the sling is not waterproof: ? Do not let it get wet. Remove it to shower or bathe. ? Move your arm as little as possible, but keep your hand moving to prevent swelling. Managing pain, stiffness, and swelling ? If directed, put ice on the painful area: ? Put ice in a plastic bag. ? Place a towel between your skin and the bag. ? Leave the ice on for 20 minutes, 2?3 times per day. Stop applying ice if it does not help with the pain. ? Squeeze a soft ball or a foam pad as much as possible. This helps to keep the shoulder from swelling. It also helps to strengthen the arm. General instructions ? Take pkbh-ijv-dudpjcc and prescription medicines only as told by your health car (more content not included)... Normal [facility] Patient Handouton 04-09-2023 Patient Handout Orthopedics Shoulder Pain Many things can cause shoulder pain, including: ? An injury to the shoulder. ? Overuse of the shoulder. ? Arthritis. The source of the pain can be: ? Inflammation. ? An injury to the shoulder joint. ? An injury to a tendon, ligament, or bone. Follow these instructions at home: Pay attention to changes in your symptoms. Let your health care provider know about them. Follow these instructions to relieve your pain. If you have a sling: ? Wear the sling as told by your health care provider. Remove it only as told by your health care provider. ? Loosen the sling if your fingers tingle, become numb, or turn cold and blue. ? Keep the sling clean. ? If the sling is not waterproof: ? Do not let it get wet. Remove it to shower or bathe. ? Move your arm as little as possible, but keep your hand moving to prevent swelling. Managing pain, stiffness, and swelling ? If directed, put ice on the painful area: ? Put ice in a plastic bag. ? Place a towel between your skin and the bag. ? Leave the ice on for 20 minutes, 2?3 times per day. Stop applying ice if it does not help with the pain. ? Squeeze a soft ball or a foam pad as much as possible. This helps to keep the shoulder from swelling. It also helps to strengthen the arm. General instructions ? Take mhkf-ggb-qntdrkr and prescription medicines only as told by your health care provider. ? Keep all follow-up visits as told by your health care provider. This is important. Contact a health care provider if: ? Your pain gets worse. ? Your pain is not relieved with medicines. ? New pain develops in your arm, hand, or fingers. Get help right away if: ? Your arm, hand, or fingers: ? Tingle. ? Become numb. ? Become swollen. ? Become painful. ? Turn white or blue. Summary ? Shoulder pain can be caused by an injury, overuse, or arthritis. ? Pay attention to changes in your symptoms. Let your health care provider know about them. ? This condition may be treated with a sling, ice, and pain medicines. ? Contact your health care provider if the pain gets worse or new pain develops. Get help right away if your arm, hand, or fingers tingle or become numb, swollen, or painful. ? Keep all follow-up visits as told by your health care provider. This is important. This information is not intended to replace advice given to you by your health care provider. Make sure you discuss any questions you have with your health care provider. Document Revised: 11/24/2021 Document Reviewed: 11/24/2021 [employer] Patient Education ? 2022 [employer] Normal [facility] Retail - Clinical Noteon Retail - Clinical Note [id number] #[id number] [facility] Ambulatory Visit Summaryon 1 04-25-2022 Ambulatory Visit Summary ALLISON WATSON Adore :1950 Visit Date:02/22/2023 Ambulatory Visit Instructions Your Diagnosis Neurogenic bladder Asymptomatic microscopic hematuria History of kidney stones Tests Performed Urnls Dip Stick Auto w/o Microscopy POC 18997 Your Care Team Attending Physician - Stuart TERRY MD Primary Care Physician - KYLIE FLOREZ md This Is Your Medications List amoxicillin-clavulan ate (Augmentin 500 mg-125 mg Tab) oxybutynin (oxybutynin 15 mg ER Tab) sulfamethoxazole-tri methoprim (Bactrim D.S. 800 mg-160 mg Tab) Contact prescribing physician if questions or concerns calcium carbonate (calcium 500 mg tablet) cholecalciferol (Vitamin D3 Gummies) gabapentin ibuprofen (ibuprofen 800 mg Tab) multivitamin (Multi Vitamin+) polycarbophil (FiberCon) [Image Removed: STOP]Stop taking these medications mirabegron (Myrbetriq 50 mg oral tablet, extended release) Procedures Performed Injection of therapeutic substance into bladder wall (02/14/2021), Injection of therapeutic substance into bladder wall (01/19/2020), Injection of therapeutic substance into bladder wall (10/06/2019), Cystoscopy (08/20/2019), Cystoscope (04/29/2014), Cystoscope (04/20/2014), Urodynamics (10/02/2004), Back surgery, H/O: hysterectomy, Suspension of bladder. Discharge Vitals Heart Rate (Peripheral) 80 Respiratory Rate 16 Blood Pressure 136/84 Height 153 cm Height 60 in Weight 80.6 kg Weight 177.32 lb BMI 34.43 What to do next Scheduled Follow-Up Appointments Saturday 10:45 AM EDT With: HOUSTON RICE, Stuart Pretty Where: [facility] Patient Educationon 02-23-20 23 Patient Education Urology Neurogenic Bladder Neurogenic bladder is a bladder control disorder. It is usually caused by problems with the nerves that control the bladder. The brain sends signals through the spinal cord to the muscles in the bladder that start and stop urine flow. With neurogenic bladder, the nerves and muscles do not work together the way they should. This condition may make the bladder overactive, meaning you have trouble holding urine. In other cases, it may make the bladder underactive. This means that you have trouble passing urine. What are the causes? This condition may be caused by nerve damage or a condition that disrupts the signals from your brain to your bladder. Many things can cause these nerve problems, including: ? A disease that affects the nervous system, such as: ? Alzheimer's disease. ? Cerebral palsy. ? Multiple sclerosis. ? Diabetes. ? Parkinson's disease. ? Damage to your brain or spinal cord. This can come from: ? Trauma. ? Tumors. ? Infection. ? Surgery. ? Alcohol abuse. ? Stroke. ? A congenital disability that affects the spinal cord. What increases the risk? You are more likely to develop this condition if you have nerve damage or a nerve disorder. What are the signs or symptoms? Signs and symptoms of this condition include: ? Leaking or gushing urine (incontinence). ? A sudden, strong urge to pass urine (urgency). ? Frequent urination during the day and night. ? Being unable to empty your bladder completely (urinary retention). ? Frequent urinary tract infections. How is this diagnosed? This condition may be diagnosed based on: ? Your symptoms and medical history. ? A physical exam. ? Records from a bladder diary. You may be asked to keep a record or log of your bladder symptoms and the times that you urinate. You may also have tests, such as: ? A urine test to check for infection. ? A bladder scan after you urinate to see how much urine is left in your bladder. ? Tests to measure your urine flow and see how well the flow is controlled (urodynamic tests). ? A procedure that uses a small device with a camera to look through your urethra into your bladder (cystoscopy). A health care provider who specializes in the urinary tract (urologist) may do this test. ? Imaging tests of your brain or spine, such as MRI or CT scan. How is this treated? Treatment for this condition depends on the cause and the symptoms that you have. Work closely with your health care provider to find the treatments that will improve your quality of life. Treatment options include: ? Learning ways to control when you urinate, such as: ? Urinating at scheduled times. ? Training yourself to delay urination. ? Exercises to strengthen the muscles that control urine flow (Kegel exercises). ? Avoiding foods or drinks that make your symptoms worse. ? Taking medicines to: ? Stimulate an underactive bladder. ? Relax an overactive bladder. ? Treat a urinary tract infection. ? Learning how to use a thin tube (catheter) to empty your bladder. A catheter is a hollow tube that you pass through your urethra. ? Procedures to stimulate the nerves that control your bladder. ? Surgery, if other treatments do not help. Follow these instructions at home: Lifestyle ? Keep a bladder diary to find out which foods, liquids, or activities make your symptoms worse. ? Use your bladder diary to schedule bathroom trips. If you are away from home, plan to be near a bathroom when your schedule says you will need one. ? Limit beverages that stimulate urination. These include soda, coffee, and tea. ? After urinating, wait a few minutes and try again. ? Make sure you urinate just before you leave the house and just before you go to bed. Kegel exercises Do Kegel exercises to strengthen the muscles that control the passing of urine. These muscles are the ones you use to try to hold urine when you need to urinate. To do Kegel exercises: 1. Squeeze your pelvic floor muscles tight, as if you are trying to stop the flow of urine. You should feel a tight lift in your rectal area. If you are female, you should also feel a tightness in your vaginal area. Keep your stomach, buttocks, and legs relaxed. 2. Hold the muscles tight for 5?10 seconds. 3. Relax your muscles for the same amount of time. 4. Repeat 10 times. Repeat this exercise 3 times a day or as many times as told by your health care provider. General instructions ? Take lpzd-hkb-zfedwur and prescription medicines only as told by your health care provider. ? Keep all follow-up visits. This is important. Contact a health care provider if: ? You are having a hard time controlling your symptoms. ? Your symptoms are getting worse. ? You have signs of a urinary tract infection. These may include: ? A burning feeling when you urinate. ? Fever or chills. ? Cloudy or bloody urine. (more content not included)... Normal [facility] Urology Office/Clinic Noteon 02-22-2023 Urology Office/Clinic Note Chief Complaint neurogenic bladder HPI Staff 8 month f/u. Previous dx of neurogenic bladder, asymptomatic microhematuria and hx of kidney stones. Pt is doing CIC 7-8x daily. Pt was to discontinue Oxybutynin after the last OV and start Myrbetriq but cost was too high so she decided to continue the Oxybutynin. Pt also continues taking the Augmentin 500 every other day. Incomplete bladder emptying: does CIC Hematuria: no Nocturia: 1-2x Leaking: no Abdominal pain: no Flank pain: no History of Present Illness Tests reviewed: reviewed UA I have reviewed the previous health record information and history for this patient from Dr. Terry. I have reviewed and verified the staff HPI to be accurate for this encounter. There have been no associated fever, chills, flank pain, or blood in the urine. Denies any urinary infections since last encounter. Review of Systems PHQ Score Initial Depression Screen Score: 0 SCORE ROS - Provider Constitutional: denies weight loss, denies hot flashes. Eyes: denies eye problems. Gastrointestinal: denies nausea, denies vomiting. Cardiovascular: denies chest pain or angina. Integumentary: no dryness Musculoskeletal: denies musculoskeletal symptoms. ENMT: denies otolaryngeal symptoms. Respiratory: no shortness of breath. Heme/Lymph: denies easy bleeding tendency, denies easy bruising tendency. Psychiatric: no confusion, no anxiety. Genitourinary: See HPI. Physical Exam Vitals & Measurements HR: 80(Peripheral) RR: 16 BP: 136/84 HT: 60 in HT: 153 cm WT: 80.6 kg WT: 177.32 lb BMI: 34.43 General Appearance: alert , no acute distress, well nourished, well developed female. Genitourinary: bladder nonpalpable, no flank pain. Assessment/Plan 1. Neurogenic bladder (N31.2: Flaccid neuropathic bladder, not elsewhere classified) S/p Botox 200 units done 02/14/21. Continues CIC 7-8x per day. Denies issues w/ CIC, does not void on her own. Pt was directed to stop Oxybutynin at last visit due to experiencing severe dry mouth. Myrbetriq was sent although was cost prohibitive. Pt called our office and a new script was sent for Oxybutynin 15mg ER qd. States sometimes she takes it qod depending on how she is feeling. Pt also continues Amoxicillin 500mg qod. Pt states she is changing insurance companies. Allergy list states she is allergic to Macrobid however pt states she had side effects years ago. [place] like she had the flu. States Keflex upsets her stomach. -Call if she wishes to retry Myrbetriq 50mg qd or Gemtesa after insurance change -Cont Oxybutynin as directed -Pt to d/c Amoxicillin and start Bactrim 800mg qod, script sent -Follow up in 8 months 2. Asymptomatic microscopic hematuria (R31.21: Asymptomatic microscopic hematuria) Neg Cysto at the time of Botox 01/2021. UA today large blood, positive nitrates and small leuks. Asx currently. Has had breakthrough infections while taking prophylactic abx. 3. History of kidney stones (Z87.442: Personal history of urinary calculi) No recent imaging or pain. Denies passage of stones since last encounter. Pt to call if this changes. Follow-up With When Contact Information HOUSTON RICE, Stuart Pretty, L [address] [place] [phone]- Additional Instructions: 8 months Patient Education Neurogenic Bladder I, Gale Bajwa, personally scribed for Dr. Terry on 02/22/2023 11:11:57. . Documentation recorded by the scribe, Gale Bajwa, accurately reflects the services(s) I performed and decisions made by me. Authenticated by Dr. Terry on 02/22/2023 11:14:59. Problem List/Past Medical History Ongoing Asymptomatic microscopic hematuria Chronic cystitis Esophageal reflux Female cystocele Gross hematuria History of kidney stones Neurogenic bladder Historical No qualifying data Procedure/Surgical History Injection of therapeutic substance into bladder wall (02/14/2021), Injection of therapeutic substance into bladder wall (01/19/2020), Injection of therapeutic substance into bladder wall (10/06/2019), Cystoscopy (08/20/2019), Cystoscope (04/29/2014), Cystoscope (04/20/2014), Urodynamics (10/02/2004), Back surgery, H/O: hysterectomy, Suspension of bladder. Medications Augmentin 500 mg-125 mg Tab, 1 tab(s), Oral, Every other day, 5 refills calcium 500 mg tablet, 500 mg= 1 tab(s), Oral, Daily FiberCon, Oral, QID gabapentin, Oral ibuprofen 800 mg Tab, Oral, TID Multi Vitamin+ Myrbetriq 50 mg oral tablet, extended release, 50 mg= 1 tab(s), Oral, Daily, 11 refills, Not taking: Not taking due to high cost oxybutynin 15 mg ER Tab, 15 mg= 1 tab(s), Oral, Daily, 11 refills Vitamin D3 Gummies, Daily Allergies Macrobid (Sick) Social History Tobacco Never (less than 100 in lifetime) Tobacco Use:. Never Smokeless Tobacco Use:., 06/08/2022 Family History Kidney stones: Mother. Immunizations Vaccine Date Status influenza (more content not included)... Normal [facility] Comment on above: Result Comment: Elec tronically Signed By: Stuart TERRY MD\.br\Date and Time Signed: 02/22/23 11:15 EST\.br\Electronically Co-Signed By: Gale Bajwa.br\Date and Time Co-Signed: 02/22/23 11:12 EST [facility] ANOOP DIGITAL SCREEN SELF REFERRAL W OR WO CAD BILATERALon 02-02-2022 No mammographic evidence of malignancy. BIRADS: BIRADS - CATEGORY 1 Negative, no evidence of malignancy. Normal interval follow-up is recommended in 12 months. OVERALL ASSESSMENT - NEGATIVE A letter of notification will be sent to the patient regarding the results. [employer] recommends annual mammograms for women 40 years and older. [facility] EXAMINATION: SCREENING DIGITAL BILATERAL MAMMOGRAM WITH TOMOSYNTHESIS 02/02/2022 TECHNIQUE: Screening mammography of the bilateral breasts was performed with tomosynthesis. 2D standard and 3D tomosynthesis combination imaging performed through both breasts in the MLO and CC projection. Computer aided detection was utilized in the interpretation of this exam. COMPARISON: Mammographic imaging with the most recent prior dated August 10, 2020. HISTORY: Screening. FINDINGS: There are scattered areas of fibroglandular density. There is no new dominant mass, suspicious microcalcification, or area of architectural distortion. Benign vascular calcifications are again apparent. [facility] Mariposa Temple MD - 02/02/2022 EXAMINATION: SCREENING DIGITAL BILATERAL MAMMOGRAM WITH TOMOSYNTHESIS 02/02/2022 TECHNIQUE: Screening mammography of the bilateral breasts was performed with tomosynthesis. 2D standard and 3D tomosynthesis combination imaging performed through both breasts in the MLO and CC projection. Computer aided detection was utilized in the interpretation of this exam. COMPARISON: Mammographic imaging with the most recent prior dated August 10, 2020. HISTORY: Screening. FINDINGS: There are scattered areas of fibroglandular density. There is no new dominant mass, suspicious microcalcification, or area of architectural distortion. Benign vascular calcifications are again apparent. IMPRESSION: No mammographic evidence of malignancy. BIRADS: BIRADS - CATEGORY 1 Negative, no evidence of malignancy. Normal interval follow-up is recommended in 12 months. OVERALL ASSESSMENT - NEGATIVE A letter of notification will be sent to the patient regarding the results. [employer] recommends annual mammograms for women 40 years and older. [employer] Phone: Radiology Study observation (narrative) [employer] Phone: [facility] ANOOP DIGITAL SCREEN SELF REFERRAL W OR WO CAD BILATERALOrdered By: Mariposa Temple on 02-02-2022 [employer] Phone: CALCULI, URINARYon 0 2,8 Dihydroxyadenine Normal [facility] Comment on above: Performed By: #### C ALCULI #### [facility] [address] [place] [address] Gilson Allison Ammonium Acid Urate Normal [facility] Comment on above: Performed By: #### C ALCULI #### [facility] [address] [place] [address] Gilson Allison Bilirubin [Mass/Vol] Normal [facility] Comment on above: Performed By: #### C ALCULI #### [facility] [address] [place] [address] Gilson Allison Ca Oxalate Dihydrate Normal [facility] Comment on above: Performed By: #### C ALCULI #### [facility] [address] [place] [address] Gilson Allison [id number] (Brushite) Normal The [facility] Comment on above: Performed By: #### C ALCULI #### [facility] [address] [address] Gilson Allison Calcium Bilirubinate Normal The [facility] Comment on above: Performed By: #### C ALCULI #### [facility] [address] [address] Gilson Allison Calcium Carbonate Normal The [facility] Comment on above: Performed By: #### C ALCULI #### [facility] [address] [address] Gilson Allison Calcium Oxalate Monohydrate 10 % Normal The [facility] Comment on above: Performed By: #### C ALCULI #### [facility] [address] [address] Gilson Allison Calcium Palmitate Normal The [facility] Comment on above: Performed By: #### C ALCULI #### [facility] [address] [place] [address] Gilson Allison Calcium Phosphate Normal The [facility] Comment on above: Performed By: #### C ALCULI #### [facility] [address] [place] [address] Gilson Allison Calcium Stearate Normal The [facility] Comment on above: Performed By: #### C ALCULI #### [facility] [address] [place] [address] Gilson Allison Carbonate Apatite 30 % Normal The [facility] Comment on above: Performed By: #### C ALCULI #### [facility] [address] [address] Gilson Allison Cellular Material Normal The [facility] Comment on above: Performed By: #### C ALCULI #### [facility] [address] [place] [address] Gilson Allison Cholesterol [Mass/Vol] Normal The [facility] Comment on above: Performed By: #### C ALCULI #### [facility] [address] [place] [address] Gilson Allison Color (U) White Normal The [facility] Comment on above: Performed By: #### C ALCULI #### [facility] [address] [place] [address] Gilson Allison Comment Normal [facility] Comment on above: Performed By: #### C ALCULI #### [facility] [address] [place] [address] Gilson Allison Comment: Comment Normal [facility] Comment on above: Result Comment: Prabhjot brown questions regarding Calculi Analysis contact [facility] at: [phone]. Performed By: #### C ALCULI #### [facility] [address] [place] [address] Gilson Allison Composition Comment Normal [facility] Comment on above: Result Comment: Perc entage (Represents the % composition) Performed By: #### C ALCULI #### [facility] [address] [place] [address] Gilson Allison Cystine Normal [facility] Comment on above: Performed By: #### C ALCULI #### [facility] [address] [place] [address] Gilson Allison Disclaimer: Comment [facility] Comment on above: Result Comment: This test was developed and its performance characteristics determined by [facility]. It has not been cleared or approved by the Food and Drug Administration. Performed By: #### C ALCULI #### [facility] [address] [place] [address] Gilson Allison Dried Blood Normal [facility] Comment on above: Performed By: #### C ALCULI #### [facility] [address] [place] [address] Gilson Allison Drug or Metabolite Normal [facility] Comment on above: Performed By: #### C ALCULI #### [facility] [address] [place] [address] Gilson Allison Hydroxyapatite Normal [facility] Comment on above: Performed By: #### C ALCULI #### [facility] [address] [place] [address] Gilson Allison Mg NH4 PO4 (Struvite) 60 % Normal [facility] Comment on above: Performed By: #### C ALCULI #### [facility] [address] [place] [address] Gilson Allison MgHPO4 (Newberyite) Normal [facility] Comment on above: Performed By: #### C ALCULI #### [facility] [address] [address] Gilson Allison Other component(s) Normal The [facility] Comment on above: Performed By: #### C ALCULI #### [facility] [address] [address] Gilson Allison PDF . 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 Performed By: #### C ALCULI #### [facility] [address] [address] Gilson Allison Size 5x3 Normal [facility] Comment on above: Result Comment: Mult iple pieces received. Dimensions of the largest piece reported. Performed By: #### C ALCULI #### [facility] [address] [address] Gilson Allison Sodium (U) [Moles/Vol] [facility] Comment on above: Performed By: #### C ALCULI #### [facility] [address] [address] Gilson Allison Source Comment Normal [facility] Comment on above: Result Comment: Not provided Performed By: #### C ALCULI #### [facility] [address] [address] Gilson Allison [employer] [facility] Comment on above: Performed By: #### C ALCULI #### [facility] [address] [address] Gilson Allison Urate [Mass/Vol] Normal [facility] Comment on above: Performed By: #### C ALCULI #### [facility] [address] [place], [place] [address] Gilson Allison Uric Acid Dihydrate Normal [facility] Comment on above: Performed By: #### C ALCULI #### [facility] [address] [place], [place] [address] Gilson Allison Weight 352 mg Normal [facility] Comment on above: Performed By: #### C ALCULI #### [facility] [address] [place] [address] Gilson Allison Xanthine Normal [facility] Comment on above: Performed By: #### C ALCULI #### [facility] [address] [place], [place] [address] Gilson Allison CBC AUTO DIFFon 08-20-2019 Basophils (Bld) [#/Vol] 0.0 103/ul Normal 0.0-0.1 [facility] Comment on above: Performed By: #### C BC #### [facility] [address] [place] [address] Gilsonchikis Randen Basophils/100 WBC (Bld) 0.8 % Normal 0.2-2.0 [facility] Comment on above: Performed By: #### C BC #### [facility] [address] [place], [place] [address] Gilson Allison Eosinophils (Bld) [#/Vol] 0.3 103/ul Normal 0.0-0.7 [facility] Comment on above: Performed By: #### C BC #### [facility] [address] [place] [address] Gilsonchikis Randen Eosinophils/100 WBC (Bld) 5.5 % Normal 0.9-7.0 The [facility] Comment on above: Performed By: #### C BC #### [facility] [address] [place], [place] [address] Gilson Allison Erythrocyte distribution width (RBC) [Ratio] 13.7 % Normal 11.0-15.0 The [facility] Comment on above: Performed By: #### C BC #### [facility] [address] [address] Gilson Allison Hematocrit (Bld) [Volume fraction] 40.5 % Normal 36.0-48.0 The [facility] Comment on above: Performed By: #### C BC #### [facility] [address] [place], [place] [address] Gilson Allison Hemoglobin (Bld) [Mass/Vol] 13.1 g/dL Normal 12.0-16.0 The [facility] Comment on above: Performed By: #### C BC #### [facility] [address] [place], [place] [address] Gilson Allison IG # 0.01 10e3/ul Normal 0.00-0.03 The [facility] Comment on above: Performed By: #### C BC #### [facility] [address] [place] [address] Gilson Allison IG % 0.2 % Normal 0.0-0.5 [facility] Comment on above: Performed By: #### C BC #### [facility] [address] [place], [place] [address] Glison Allison Lymphocytes (Bld) [#/Vol] 1.3 103/ul Normal 1.2-3.8 The [facility] Comment on above: Performed By: #### C BC #### [facility] [address] [place], [place] [address] Gilson Allison Lymphocytes/100 WBC (Bld) 25.4 % Normal 20.5-60.0 The [facility] Comment on above: Performed By: #### C BC #### [facility] [address] [place], [place] [address] Gilson Randen MANUAL DIFF REQ NO Normal [facility] Comment on above: Performed By: #### C BC #### [facility] [address] [place], [place] [address] Gilson Allison MCH (RBC) [Entitic mass] 30.5 pg Normal 26.7-34.0 The [facility] Comment on above: Performed By: #### C BC #### [facility] [address] [place], [place] [address] Gilson Allison MCHC (RBC) [Mass/Vol] 32.3 g/dL Normal 29.9-35.2 The [facility] Comment on above: Performed By: #### C BC #### [facility] [address] [place], [place] [address] Gilson Cooper MCV (RBC) [Entitic vol] 94.4 fL Normal 81.0-99.0 The [facility] Comment on above: Performed By: #### C BC #### [facility] [address] [place], [place] [address] Gilson Allison Monocytes (Bld) [#/Vol] 0.5 103/ul Normal 0.3-0.8 The [facility] Comment on above: Performed By: #### C BC #### [facility] [address] [place] [address] Gilson Allison Monocytes/100 WBC (Bld) 9.5 % Normal 1.7-12.0 The [facility] Comment on above: Performed By: #### C BC #### [facility] [address] [place], [place] [address] Gilson Allison Neutrophils (Bld) [#/Vol] 3.1 103/ul Normal 1.4-6.5 The [facility] Comment on above: Performed By: #### C BC #### [facility] [address] [place] [address] Gilson Allison Neutrophils/100 WBC (Bld) 58.6 % Normal 43.0-75.0 The [facility] Comment on above: Performed By: #### C BC #### [facility] [address] [place], [place] [address] Gilson Allison Platelet mean volume (Bld) [Entitic vol] 9.9 fL Normal 9.5-13.5 The [facility] Comment on above: Performed By: #### C BC #### [facility] [address] [place], [place] [address] Gilson Allison Platelets (Bld) [#/Vol] 297 103/ul Normal 150-450 The [facility] Comment on above: Performed By: #### C BC #### [facility] [address] [place], [place] [address] Gilson Allison RBC (Bld) [#/Vol] 4.29 106/ul Normal 4.20-5.40 The [facility] Comment on above: Performed By: #### C BC #### [facility] [address] [address] Gilson Allison WBC (Bld) [#/Vol] 5.2 103/ul Normal 4.0-11.0 The [facility] Comment on above: Performed By: #### C BC #### [facility] [address] [address] [place]son Allison CULTURE URINEon 08-20-2019 CULTURE URINE Culture Observations: No growth Normal The [facility] Comment on above: Performed By: #### U RCX #### [facility] [address] [address] Gilson Allison PROF CHEM 8 (BAS METB)on Anion gap [Moles/Vol] 14.9 mmol/L Normal The [facility] Comment on above: Performed By: #### B MP #### [facility] [address] [place] [address] Gilson Allison Calcium [Mass/Vol] 8.8 mg/dL Normal 8.4-10.2 The [facility] Comment on above: Performed By: #### B MP #### [facility] [address] [place], [place] [address] Gilson Allison Chloride [Moles/Vol] 103 mmol/L Normal 98-107 The [facility] Comment on above: Performed By: #### B MP #### [facility] [address] [address] Gilson Allison CO2 [Moles/Vol] 26.5 mmol/L Normal 22.0-30.0 The [facility] Comment on above: Performed By: #### B MP #### [facility] [address] [place], [place] [address] Gilson Allison Creatinine [Mass/Vol] 0.62 mg/dL Normal 0.52-1.04 The [facility] Comment on above: Performed By: #### B MP #### [facility] [address] [place], [place] [address] Gilson Allison EGFR-AF MARSHALLESE >60 Normal >=60 [facility] Comment on above: Performed By: #### B MP #### [facility] [address] [place], [place] [address] Gilson Allison EGFR-NON AF MARSHALLESE >60 Normal >=60 [facility] Comment on above: Performed By: #### B MP #### [facility] [address] [address] Gilson Allison Glucose [Mass/Vol] 95 mg/dL Normal 74-106 The [facility] Comment on above: Performed By: #### B MP #### [facility] [address] [place], [place] [address] Gilson Allison Potassium [Moles/Vol] 4.4 mmol/L Normal 3.4-5.0 [facility] Comment on above: Result Comment: SPEC IMEN SLIGHTLY HEMOLYZED/ MAY INTERFERE W K RESULT/ NO REDRAW PER JET RN Performed By: #### B MP #### [facility] [address] [place], [place] [address] Gilson Allison Sodium [Moles/Vol] 140 mmol/L Normal 137-145 The [facility] Comment on above: Performed By: #### B MP #### [facility] [address] [place], [place] [address] Gilson Allison Urea nitrogen [Mass/Vol] 16.0 mg/dL Normal 7.0-17.0 The [facility] Comment on above: Performed By: #### B MP #### [facility] [address] [place], [place] [address] Gilson Allison Urea nitrogen/Creatinine [Mass ratio] 25.8 mg/mg Normal [facility] Comment on above: Performed By: #### B MP #### [facility] [address] [place], [place] [address] Gilson Allison PROTIMEon 08-20-2019 INR Coag (PPP) [Relative time] 0.93 {INR} Normal The [facility] Comment on above: Performed By: #### P TT, PT #### [facility] [address] [place], [place] [address] Gilson Allison PT Coag (PPP) [Time] SEE BELOW Normal The [facility] Comment on above: Result Comment: RADHA RED INR: 2.0 - 3.0 CONDITIONS NOT LISTED BELOW 2.5 - 3.5 FOR PROSTHETIC HEART VALVE REPLACEMENT 2.5 - 3.5 RECURRENT THROMBOSIS Performed By: #### P TT, PT #### [facility] [address] [place], [place] [address] Gilson Allison PT Coag (PPP) [Time] 9.7 s Normal 9.0-11.6 [facility] Comment on above: Performed By: #### P TT, PT #### [facility] [address] [place], [place] [address] Gilson Allison PT Coag (PPP) [Time] PLEASE NOTE: NORMAL RANGE CHANGE 12-10-2013 DUE TO REAGENT LOT CHANGE Normal [facility] Comment on above: Performed By: #### P TT, PT #### [facility] [address] [place], [place] [address] Gilson Allison PTTon 08-20-2019 aPTT Coag (Bld) [Time] PLEASE NOTE: NORMAL RANGE CHANGE 02-16-2015 DUE TO REAGENT LOT CHANGE Normal The [facility] Comment on above: Performed By: #### P TT, PT #### [facility] [address] [place] [address] Gilson Allison aPTT Coag (Bld) [Time] 23.9 s Normal 22.3-36.2 The [facility] Comment on above: Performed By: #### P TT, PT #### [facility] [address] [place], [place] [address] Gilson Allison Vital Signs Date Time Vital Sign Value Performing Clinician Faci lity 11-05-2023 11:55-0400 Body temperature 95.9 [degF] [facility] 11-05-2023 11:55-0400 Diastolic blood pressure 76 mm[Hg] [facility] 11-05-2023 11:55-0400 Heart rate 84 /min Adele Orzech [facility] 11-05-2023 11:55-0400 Respiratory rate 16 /min Adele Orzech [facility] 11-05-2023 11:55-0400 Systolic blood pressure 146 mm[Hg] Adele Orzech [facility] 02-22-2023 10:36-0500 Blood Pressure Location Stuart TERRY [facility] 02-22-2023 10:36-0500 Diastolic blood pressure 84 mm[Hg] Stuart TERRY [facility] 02-22-2023 10:36-0500 Heart rate 80 /min Stuart TERRY [facility] 02-22-2023 10:36-0500 Respiratory rate 16 /min Stuart TERRY [facility] 02-22-2023 10:36-0500 Systolic blood pressure 136 mm[Hg] Stuart TERRY [facility] 06-08-2022 11:21-0400 Blood Pressure Location Stuart TERRY [facility] 06-08-2022 11:21-0400 Diastolic blood pressure 78 mm[Hg] Stuart TERRY [facility] 06-08-2022 11:21-0400 Heart rate 68 /min Stuart TERRY [facility] 06-08-2022 11:21-0400 Respiratory rate 16 /min Stuart TERRY [facility] 06-08-2022 11:21-0400 Systolic blood pressure 132 mm[Hg] Stuart TERRY [facility] Encounters Encounter Date Encounter Type Care Provider Facility Start: 12-26-2023 ambulatory Stuart Maria De Jesus [place] Facili ty:[id number] Start: 12-23-2023 End: 12-23-2023 ambulatory KARLA FLOREZ MD Facility:[facility] Start: 12-23-2023 End: 12-23-2023 ambulatory KARLA FLOREZ MD Facility:[facility] Start: 12-17-2023 End: 12-17-2023 ambulatory Stuart TERRY Facility:[facility] Start: 12-17-2023 End: 12-17-2023 Patient encounter procedure Stuart TERRY [facility] Start: 12-09-2023 ambulatory KARLA FLOREZ MD Facil ity:[facility] Start: 11-29-2023 End: 11-29-2023 ambulatory KARLA FLOREZ MD Facility:[facility] Start: 11-29-2023 End: 11-29-2023 ambulatory KARLA FLOREZ MD Facility:[facility] Start: 11-21-2023 End: 11-21-2023 ambulatory KARLA CARPENTER Not Available Start: 11-07-2023 End: 11-07-2023 ambulatory Adele Orzech [employer] ADMINISTRATOR-C Facility:[facility] Start: 11-05-2023 End: 11-05-2023 ambulatory Adele X Orzech Facility:[facility] Start: 11-05-2023 End: 11-05-2023 Lab Drop off Adele X Orzech [facility] Start: 11-05-2023 End: 11-05-2023 ambulatory Adele X Orzech Facility:[facility] Start: 11-05-2023 End: 11-05-2023 Patient encounter procedure Adele Ron [facility] Start: 10-30-2023 End: 10-30-2023 ambulatory KARLA FLOREZ MD Facility:[facility] Start: 10-25-2023 ambulatory Stuart TERRY Facili ty:[facility] Start: 10-15-2023 End: 10-15-2023 ambulatory KARLA FLOREZ MD Facility:[facility] Start: 08-15-2023 End: 08-15-2023 ambulatory KARLA FLOREZ MD [facility] Start: 04-17-2023 End: 04-20-2023 ambulatory KYLIE [facility] Start: 04-09-2023 End: 04-09-2023 ambulatory KARLA FLOREZ MD Facility: [facility] Start: 04-09-2023 End: 04-09-2023 ambulatory KARLA FLOREZ MD Facility:[facility] Start: 02-22-2023 End: 02-22-2023 ambulatory Stuart TERRY Facility:[facility] Start: 02-22-2023 End: 02-22-2023 Patient encounter procedure Stuart TERRY [facility] Start: 06-08-2022 End: 06-08-2022 Patient encounter procedure Stuart TERRY [facility] Start: 02-02-2022 End: 02-04-2022 Subsequent hospital visit by physician Shanika Head [facility] Comment on above: Encounter for screen ing mammogram for malignant neoplasm of breast Start: 08-20-2019 End: 08-20-2019 Patient encounter procedure STUART TERRY Facility:[facility] Procedures Date Procedure Procedure Detail Performing Clinician Start: 02-02-2022 Screening mammograph y bi 2-view breast inc cad Kylie Galena Start: 02-14-2021 Injection of therape utic substance into bladder wall Stuart TERRY Start: 01-19-2020 Injection of therape utic substance into bladder wall Stuart TERRY Start: 10-06-2019 Injection of therape utic substance into bladder wall Stuart TERRY Comment on above: 200 units Start: 08-20-2019 Cystoscopy Stuart EPSTEIN Start: 04-29-2014 Cystoscope, device (physical object) Stuart TERRY Start: 04-20-2014 Cystoscope, device (physical object) Stuart TERRY Start: 10-02-2004 Urodynamic studies Scarletr des TERRY Back surgery Stuart TERRY Cystopexy Stuart TERRY H/O: hysterectomy Stuart EPSTEIN Plan of Treatment Date Care Activity Detail Author Start: 05-08-2024 ambulatory Ambulatory [facility] Start: 02-03-2024 Screening for malign ant neoplasm of breast Breast cancer screen [facility] Start: 10-23-2021 Influenza vaccination Flu vaccine (# 1) [facility] Start: 04-18-2021 COVID-19 Vaccine (4 - Booster for Moderna series) COVID-19 Vaccine (4 - Booster for Moderna series) [facility] [employer] Start: 10-14-2018 Shingles vaccine (2 of 2) [facility] vaccine (2 of 2) [facility] Start: 09-14-2018 Annual Wellness Visi t (AWV) Annual Wellness Visit (AWV) [facility] Start: 07-28-2003 Screening for osteoporosis DEXA (modify frequency per FRAX score) [facility] Start: 1993 Screening for malign ant neoplasm of colon [facility] Start: 1988 Lipid panel Lipids [facility] Start: 07-28-1967 DTaP/Tdap/Td vaccine (1 - Tdap) DTaP/Tdap/Td vaccine (1 - Tdap) [facility] Start: 1966 Hepatitis C screening Hepatitis C sc reen [facility] Start: 1960 Depression Screen Depression Screen [facility] Immunizations Immunization Date Immunization Notes Care Provider Fa foreign 03-02-2022 influenza virus vaccine, unspecified formulation Stuart TERRY [facility] 02-21-2021 SARS-CoV-2 (COVID-19 ) mRNA-1273 vaccine Stuart TERRY [facility] 01-13-2021 influenza virus vaccine, unspecified formulation Stuart TERRY [facility] 06-24-2020 SARS-CoV-2 (COVID-19 ) mRNA-1273 vaccine Stuart TERRY [facility] 06-23-2020 SARS-CoV-2 (COVID-19 ) mRNA-1273 vaccine Stuart TERRY [facility] 05-27-2020 SARS-CoV-2 (COVID-19 ) mRNA-1273 vaccine Stuart TERRY [facility] 05-23-2020 SARS-CoV-2 (COVID-19 ) mRNA-1273 vaccine Stuart TERRY [facility] 01-22-2020 influenza virus vaccine, unspecified formulation Stuart TERRY [facility] 12-19-2018 influenza virus vaccine, unspecified formulation Stuart TERRY [facility] 08-19-2018 zoster vaccine recombinant Stuart TERRY [facility] 05-13-2018 pneumococcal conjuga te vaccine, 13 valent Stuart TERRY [facility] 04-02-2018 influenza virus vaccine, unspecified formulation Stuart TERRY [facility] 02-18-2017 influenza virus vaccine, unspecified formulation Stuartcristal TERRY [facility] 04-09-2013 influenza virus vaccine, unspecified formulation Stuart TERRY [facility] Payers Date Payer Category Payer Medicare [id number] 1961 Unknown [id number] 1950 Unknown [id number] 2.16.84 0.1.627118.3.579.2.593 1950 Unknown [id number] 2.16.8 40.1.506093.3.579.2.176 1950 Unknown [id number] 2.16.8 40.1.806324.3.579.2.727 1950 Unknown [id number] 2.16.8 40.1.570826.3.579.2.727 1950 Unknown [id number] 2.16.8 40.1.653618.3.579.2.727 1950 Unknown [id number] 2.16.8 40.1.168406.3.579.2.727 1950 Unknown [id number] 2.16.8 40.1.186369.3.579.2.727 1950 Unknown [id number] 2.16.84 0.1.043407.3.579.2.1259 1950 Unknown [id number] 2.16.84 0.1.452781.3.579.2.1259 1950 Unknown [id number] 2.16.8 40.1.491912.3.579.2.727 1950 Unknown [id number] 2.16.8 40.1.614347.3.579.2. 1950 Unknown [id number] 2.16.8 40.1.645373.3.579.2. 1948 Unknown [id number] 2.16.8 40.1.482717.3.579.2. 1950 Unknown [id number] 2.16.8 40.1.749205.3.579.2. 1950 Unknown [id number] 2.16.8 40.1.714288.3.579.2. 1950 Unknown [id number] 2.16.8 40.1.591507.3.579.2. 1950 Unknown [id number] 2.16.8 40.1.156308.3.579.2. 1950 Unknown [id number] 2.16.8 40.1.009003.3.579.2. 1950 Unknown [id number] 2.16.8 40.1.139151.3.579.2. 1950 Unknown [id number] 2.16.8 40.1.304774.3.579.2. 1950 Unknown [id number] 2.16.8 40.1.074511.3.579.2. 1950 Unknown [id number] 2.16.8 40.1.932114.3.579.2. Self-pay Self Pay [id number] Social History Date Type Detail Facility Tobacco smoking status [facility] Unknown if ever smoked [facility] Work Phone: Start: 1950 Sex Assigned At Female F [facility] Tobacco smoking status NHIS Tobacco smoking consumption unknown [facility] [employer] Work Phone: Start: 1950 Sex Assigned At Not on file [facility] [employer] Phone: Start: 06-08-2022 End: 11-05-2023 Tobacco smoking status Never smoked tobacco (finding) [facility] Tobacco smoking status Never [facility] Sex Assigned At Female [facility] Functional Status Date Assessment Result Facility 12-17-2023 Functional Status N/A [facility] 11-05-2023 Functional Status N/A [facility] 02-22-2023 Functional Status N/A [facility] 06-08-2022 Functional Status N/A [facility] Clinical Notes 06-08-2022 to 12-17-2023 Note Date & Type Note Facility 12-17-2023 Hospital Discharg e instructions Patient Education 12/17/2023 13:22:52 [facility] - Cystoscopy Discharge Instructions (CUSTOM) Cystoscopy Voiding after the procedure: there may be some pain, burning, urgency, frequency and blood tinged urine following the procedure. These symptoms usually resolve within 2-5 days. Drink the amount of fluid it takes to keep the urine pink to yellow or clear in color. Drinking enough water and fluids will help to ease any discomfort after your procedure. If you are having problems that seem out of the ordinary, please call. If unable to contact your physician and you feel it is an emergency, go to the nearest emergency room or call 911 Diet you may resume your normal diet. Activity you may resume your normal activities Call if you have a fever over 100 degrees. Follow Up Care 11/21/2023 10:46:01 With:Stuart TERRY Address: [address] [place] [address] [place] [address]- Business (1) When: Unknown Comments:Office will call to schedule follow up [facility] 12-17-2023 Evaluation + Plan note Extrac marilee from: Title:Urology Progress Note Author:Bentley TERRY MD Date:12/17/23 Impression and Plan Impression: #1. She has a bladder calculus which seems to be causing her gross hematuria and recurrent UTIs. Plan: #1. She is getting scheduled for cystolitholapaxy under anesthesia. Future Appointments Appointment Date:05/08/2024 11:00:00 AM Scheduled Provider:Stuart TERRY MD Location:[facility] Appointment Type:URO Office Visit [facility] [phone] NoteProgress Note-Physician Patient: ALLISON WATSON Age: 73 years Sex: Female : 1950 Associated Diagnoses: None Author: Stuart TERRY MD Subjective X this lady has had gross hematuria with clots and recurrent urinary tract infections in the last couple months. KUB x-ray suggested a bladder calculus. Cystoscopy today verify that this is a bladdercalculus. Review of Systems ROS reviewed as documented in chart Health Status Allergies: Allergic Reactions (Selected) Severity Not Documented Macrobid- Sick. Current medications: Home Medications (8) Active Bactrim D.S. 800 mg-160 mg Tab 1 tab(s), Oral, Every other day calcium 500 mg tablet 500 mg = 1 tab(s), Oral, Daily FiberCon , Oral, QID gabapentin , Oral ibuprofen 800 mg Tab , Oral, TID Multi Vitamin+ oxybutynin 15 mg ER Tab 15 mg = 1 tab(s), Oral, Daily Vitamin D3 Gummies , Daily Problem list: All Problems Esophageal reflux / SNOMED CT 050501653 / Confirmed Neurogenic bladder / SNOMED CT 5475801072 / Confirmed Chronic cystitis / SNOMED CT 62335470 / Confirmed Female cystocele / SNOMED CT 135436261 / Confirmed Gross hematuria / SNOMED CT 853335265 / Confirmed Asymptomatic microscopic hematuria / SNOMED CT 7087857170 / Confirmed History of kidney stones / SNOMED CT 0280363984 / Confirmed Histories Past Medical History: No active or resolved past medical history items have been selected or recorded. Family History: Kidney stones Mother Procedure history: Cysto/Botox 200 units ([id number]) on 02/14/2021 at 70 Years. Cysto/Botox 200units ([id number]) on 01/19/2020 at 69 Years. Cysto/Botox 200units ([id number]) on 10/06/2019 at 69 Years. Comments: 01/27/2021 11:31 EDT - Jennifer Mamta DAVIS 200 units Cystoscopy litholapaxy using shock pulse of the bladder calculi ([id number]) on 08/20/2019 at 69 Years. Cystoscope/Holium laser litho of bladder stone/bladder cold cut BX/Fulguration of bladder lesion ([id number]) on 04/29/2014 at 63 Years. Cystoscope ([id number]) on 04/20/2014 at 63 Years. Urodynamics ([id number]) on 10/02/2004 at 54 Years. H/O: hysterectomy ([id number]). Back surgery. Suspension of bladder (0841371). Social History Social & Psychosocial Habits Tobacco 11/05/2023 Tobacco Use: Never (less than 100 in l Smokeless tobacco use: Never Concerns about tobacco use in household: No Smoking Cessation Yes . Objective Afebrile vital signs are stable. She is in no acute distress. Abdomen is soft and nontender. Impression and Plan Impression: #1. She has a bladder calculus which seems to be causing her gross hematuria and recurrent UTIs. Plan: #1. She is getting scheduled for cystolitholapaxy under anesthesia[facility]Result Comment: Electronically Signed By: HOUSTON RICE, Stuart Vann.alice\Date and Time Signed: 12/17/23 13:30 [id number] Note Patient Education Custom Cystoscopy ? Voiding after the procedure: there may be some pain, burning, urgency, frequency and blood tingedurine following the procedure. These symptoms usually resolve within 2-5 days. Drink the amount of fluid it takes to keep the urine pink to yellow or clear in color. Drinking enough water and fluids will help to ease any discomfort after your procedure. ? If you are having problems that seem out of the ordinary, please call. ? If unable to contact your physician and you feel it is an emergency, go to the nearest emergency room or call 911 ? Diet ? you may resume your normal diet. ? Activity ? you may resume your normal activities ? Call if you have a fever over 100 degrees.[facility] 11-05-2023 Hospital Discharge instructions Patient Education 11/05/2023 12:44:17 Clean Intermittent Catheterization, Female Clean Intermittent Catheterization, Female Clean intermittent catheterization (CIC) is a procedure to remove urine from the bladder by placinga small, flexible tube (catheter) into the bladder though the urethra. The urethra is a tube in thebody that carries urine from the bladder out of the body. CIC may be done when: You cannot completely empty your bladder on your own. This may be due to a blockage in the bladder or urethra. Your bladder leaks urine. This may happen when the muscles or nerves near the bladder are not working normally, and the bladder overflows. Your health care provider will show you how to perform CIC and will help you to feel comfortable performing this procedure at home. Your health care provider will also help you to get the home care supplies that are needed for this procedure. Supplies needed Germ-free (sterile), water-based lubricant. A container for urine collection. You may also use the toilet to dispose of urine from the catheter. A catheter. Your health care provider will determine the best size for you. ?Use this catheter size: Clean gloves. Soap and water. Clean washcloth and towel. How to perform this procedure: Most people need CIC at least 4 times per day to adequately empty the bladder. Your health care provider will tell you how often you should perform CIC. Number of times per day to perform CIC: To perform CIC, follow these steps: 1.Wash your hands with soap and water. If soap and water are not available, use hand sap basis consultant. 2.Prepare the supplies that you will use during the procedure. Open the catheter package and lubricant. 3.Get in a comfortable position. It may be helpful to use a handheld mirror to look at the opening of your urethra. Possible positions include: Sitting on a toilet, a chair, or the edge of a bed. Standing next to a toilet with one foot on the toilet rim. Lying down with your head raised on pillows and your knees pointing to the ceiling. You may wish toplace a waterproof mat or pad under you. 4.If you are using a urine collection container, position it between your legs. 5.Urinate, if you are able. 6.Put on gloves. 7.Apply lubricant to about 2 inches (5 cm) of the tip of the catheter. 8.Set the catheter down on a clean, dry surface within reach. 9.Gently spread the folds of skin around your vagina (labia) with your non- dominant hand. For example, if you are right-handed, use your left hand to do this. With the other hand, clean the urethral opening with a washcloth and warm, soapy water, wiping from front to back. Dry the area completely with a towel. 10.While keeping your labia spread apart, slowly insert the lubricated catheter straight into your urethra until urine flows freely. This is usually 2 3 inches (5 8 cm). 11.When urine starts to flow freely, insert the catheter 1 inch (3 cm) more. Allow urine to drain into the toilet or the urine collection container. 12.When urine stops flowing, slowly remove the catheter. 13.Note the color, amount, and odor of the urine. 14.Measure your urine and note the amount, if told by your health care provider. 15.Discard the urine in the toilet. 16.Wash your genital area with soap and water. Wipe from front to back. 17.If you are using a single-use catheter, discard the catheter and supplies. 18.Wash your hands with soap and water. 19.If you are using a reusable catheter, follow package instructions about how to clean the catheter after each use. What are the risks? Generally, this is a safe procedure, however problems may occur, including: Infection. Injury to the urethra. Irritation of the urethra. How often should I perform this procedure? Do CIC to empty your bladder every 4 6 hours or as often as told by your health care provider. ?If you have symptoms of too much urine in your bladder (overdistension) and you are not able to urinate, perform CIC. Symptoms of overdistension may include: ?Restlessness. ?Sweating or chills. ?Headache. ?Flushed or pale skin. ?Bloated lower abdomen. Follow these instructions at home: General instructions Drink enough fluid to keep your urine pale yellow. Dispose of a multiple-use catheter when it becomes dry, brittle, or cloudy. This usually happens after you use the catheter for 1 week. Avoid caffeine. Caffeine may make you need to urinate more frequently and more urgently. When traveling, bring extra supplies with you in case of delays. Keep supplies with you in a place that you can access easily. If traveling by plane: ?Make sure that the lubricant in your carry-on bag is less than 3.4 ounces (100 mL). ?Use a single-use catheter. It may be difficult to clean a reusable catheter in a small bathroom. Take rjpp-hlh-yowetlr and prescription medicines only as told by your health care provider. Keep all follow-up visits as told by your health care provider. This is important. Contact a health care provider if you: Have problems performing CIC. Have urine leaking during CIC. Have: ?Dark or cloudy urine. ?Blood in your urine or in your catheter. ?A change in the smell of your urine or discharge. ?A burning feeling while you urinate. Feel nauseous or you vomit. Have pain in your abdomen, your back, or your sides below your ribs. Have swelling or redness around the opening of your urethra. Develop a rash or sores on your skin. Get help right away if you have: A fever. Symptoms that do not go away after 3 days. Symptoms that suddenly get worse. Severe pain. A decrease in the amount of urine that drains from your bladder. Summary Clean intermittent catheterization (CIC) is a procedure to remove urine from the bladder by placinga small, flexible tube (catheter) into the bladder though the urethra. Your health care provider will show you how to perform CIC and will help you to feel comfortable performing this procedure at home. Most people need CIC at least 4 times per day to adequately empty the bladder. This information is not intended to replace advice given to you by your health care provider. Make sure you discuss any questions you have with your health care provider. Document Revised: 01/15/2022 Document Reviewed: 01/15/2022 [employer] Patient Education 2022 [employer]. 11/05/2023 12:44:17 Overactive Bladder, Adult Overactive Bladder, Adult Overactive bladder is a condition in which a person has a sudden and frequent need to urinate. A person might also leak urine if he or she cannot get to the bathroom fast enough (urinary incontinence). Sometimes, symptoms can interfere with work or social activities. What are the causes? Overactive bladder is associated with poor nerve signals between your bladder and your brain. Your bladder may get the signal to empty before it is full. You may also have very sensitive muscles thatmake your bladder squeeze too soon. This condition may also be caused by other factors, such as: Medical conditions: ?Urinary tract infection. ?Infection of nearby tissues. ?Prostate enlargement. ?Bladder stones, inflammation, or tumors. ?Diabetes. ?Muscle or nerve weakness, especially from these conditions: ?A spinal cord injury. ?Stroke. ?Multiple sclerosis. ?Parkinson's disease. Other causes: ?Surgery on the uterus or urethra. ?Drinking too much caffeine or alcohol. ?Certain medicines, especially those that eliminate extra fluid in the body (diuretics). ?Constipation. What increases the risk? You may be at greater risk for overactive bladder if you: Are an older adult. Smoke. Are going through menopause. Have prostate problems. Have a neurological disease, such as stroke, dementia, Parkinson's disease, or multiple sclerosis (MS). Eat or drink alcohol, spicy food, caffeine, and other things that irritate the bladder. Are overweight or obese. What are the signs or symptoms? Symptoms of this condition include a sudden, strong urge to urinate. Other symptoms include: Leaking urine. Urinating 8 or more times a day. Waking up to urinate 2 or more times overnight. How is this diagnosed? This condition may be diagnosed based on: Your symptoms and medical history. A physical exam. Blood or urine tests to check for possible causes, such as infection. You may also need to see a health care provider who specializes in urinary tract problems. This is called a urologist. How is this treated? Treatment for overactive bladder depends on the cause of your condition and whether it is mild or severe. Treatment may include: Bladder training, such as: ?Learning to control the urge to urinate by following a schedule to urinate at regular intervals. ?Doing Kegel exercises to strengthen the pelvic floor muscles that support your bladder. Special devices, such as: ?Biofeedback. This uses sensors to help you become aware of your body's signals. ?Electrical stimulation. This uses electrodes placed inside the body (implanted) or outside the body. These electrodes send gentle pulses of electricity to strengthen the nerves or muscles that control the bladder. ?Women may use a plastic device, called a pessary, that fits into the vagina and supports the bladder. Medicines, such as: ?Antibiotics to treat bladder infection. ?Antispasmodics to stop the bladder from releasing urine at the wrong time. ?Tricyclic antidepressants to relax bladder muscles. ?Injections of botulinum toxin type A directly into the bladder tissue to relax bladder muscles. Surgery, such as: ?A device may be implanted to help manage the nerve signals that control urination. ?An electrode may be implanted to stimulate electrical signals in the bladder. ?A procedure may be done to change the shape of the bladder. This is done only in very severe cases. Follow these instructions at home: Eating and drinking Make diet or lifestyle changes recommended by your health care provider. These may include: ?Drinking fluids throughout the day and not only with meals. ?Cutting down on caffeine or alcohol. ?Eating a healthy and balanced diet to prevent constipation. This may include: ?Choosing foods that are high in fiber, such as beans, whole grains, and fresh fruits and vegetables. ?Limiting foods that are high in fat and processed sugars, such as fried and sweet foods. Lifestyle Lose weight if needed. Do not use any products that contain nicotine or tobacco. These include cigarettes, chewing tobacco, and vaping devices, such as e-cigarettes. If you need help quitting, ask your health care provider. General instructions Take pqtx-wep-jehffip and prescription medicines only as told by your health care provider. If you were prescribed an antibiotic medicine, take it as told by your health care provider. Do notstop taking the antibiotic even if you start to feel better. Use any implants or pessary as told by your health care provider. If needed, wear pads to absorb urine leakage. Keep a log to track how much and when you drink, and when you need to urinate. This will help your health care provider monitor your condition. Keep all follow-up visits. This is important. Contact a health care provider if: You have a fever or chills. Your symptoms do not get better with treatment. Your pain and discomfort get worse. You have more frequent urges to urinate. Get help right away if: You are not able to control your bladder. Summary Overactive bladder refers to a condition in which a person has a sudden and frequent need to urinate. Several conditions may lead to an overactive bladder. Treatment for overactive bladder depends on the cause and severity of your condition. Making lifestyle changes, doing Kegel exercises, keeping a log, and taking medicines can help with this condition. This information is not intended to replace advice given to you by your health care provider. Make sure you discuss any questions you have with your health care provider. Document Revised: 11/28/2020 Document Reviewed: 11/28/2020 [employer] Patient Education 2022 [employer]. 11/05/2023 12:44:14 Hematuria, Adult Hematuria, Adult Hematuria is blood in the urine. Blood may be visible in the urine, or it may be identified with a test. This condition can be caused by infections of the bladder, urethra, kidney, or prostate. Otherpossible causes include: Kidney stones. Cancer of the urinary tract. Too much calcium in the urine. Conditions that are passed from parent to child (inherited conditions). Exercise that requires a lot of energy. Infections can usually be treated with medicine, and a kidney stone usually will pass through your urine. If neither of these is the cause of your hematuria, more tests may be needed to identify the cause of your symptoms. It is very important to tell your health care provider about any blood in your urine, even if it ispainless or the blood stops without treatment. Blood in the urine, when it happens and then stops and then happens again, can be a symptom of a very serious condition, including cancer. There is no pain in the initial stages of many urinary cancers. Follow these instructions at home: Medicines Take lquc-aeo-zruelbe and prescription medicines only as told by your health care provider. If you were prescribed an antibiotic medicine, take it as told by your health care provider. Do notstop taking the antibiotic even if you start to feel better. Eating and drinking Drink enough fluid to keep your urine pale yellow. It is recommended that you drink 3 4 quarts (2.83.8 L) a day. If you have been diagnosed with an infection, drinking cranberry juice in addition tolarge amounts of water is recommended. Avoid caffeine, tea, and carbonated beverages. These tend to irritate the bladder. Avoid alcohol because it may irritate the prostate (in males). General instructions If you have been diagnosed with a kidney stone, follow your health care provider's instructions about straining your urine to catch the stone. Empty your bladder often. Avoid holding urine for long periods of time. If you are female: ?After a bowel movement, wipe from front to back and use each piece of toilet paper only once. ?Empty your bladder before and after sex. Pay attention to any changes in your symptoms. Tell your health care provider about any changes or any new symptoms. It is up to you to get the results of any tests. Ask your health care provider, or the department that is doing the test, when your results will be ready. Keep all follow-up visits. This is important. Contact a health care provider if: You develop back pain. You have a fever or chills. You have nausea or vomiting. Your symptoms do not improve after 3 days. Your symptoms get worse. Get help right away if: You develop severe vomiting and are unable to take medicine without vomiting. You develop severe pain in your back or abdomen even though you are taking medicine. You pass a large amount of blood in your urine. You pass blood clots in your urine. You feel very weak or like you might faint. You faint. Summary Hematuria is blood in the urine. It has many possible causes. It is very important that you tell your health care provider about any blood in your urine, even ifit is painless or the blood stops without treatment. Take uclw-rmz-vbwhzry and prescription medicines only as told by your health care provider. Drink enough fluid to keep your urine pale yellow. This information is not intended to replace advice given to you by your health care provider. Make sure you discuss any questions you have with your health care provider. Document Revised: 11/09/2020 Document Reviewed: 11/09/2020 [employer] Patient Education 2022 [employer]. Follow Up Care 10/07/2023 14:53:25 With:HOUSTON RICE, Stuart Pretty, URL Address: [address] [place] [id number]- When: Unknown Comments:6 months [facility] 08-13-2024 NotePatient Education Obstetrics and Gynecology Overactive Bladder, Adult Overactive bladder is a condition in which a person has a sudden and frequent need to urinate. A person might also leak urine if he or she cannot get to the bathroom fast enough (urinary incontinence). Sometimes, symptoms can interfere with work or social activities. What are the causes? Overactive bladder is associated with poor nerve signals between your bladder and your brain. Your bladder may get the signal to empty before it is full. You may also have very sensitive muscles thatmake your bladder squeeze too soon. This condition may also be caused by other factors, such as: ? Medical conditions: ? Urinary tract infection. ? Infection of nearby tissues. ? Prostate enlargement. ? Bladder stones, inflammation, or tumors. ? Diabetes. ? Muscle or nerve weakness, especially from these conditions: ? A spinal cord injury. ? Stroke. ? Multiple sclerosis. ? Parkinson's disease. ? Other causes: ? Surgery on the uterus or urethra. ? Drinking too much caffeine or alcohol. ? Certain medicines, especially those that eliminate extra fluid in the body (diuretics). ? Constipation. What increases the risk? You may be at greater risk for overactive bladder if you: ? Are an older adult. ? Smoke. ? Are going through menopause. ? Have prostate problems. ? Have a neurological disease, such as stroke, dementia, Parkinson's disease, or multiple sclerosis(MS). ? Eat or drink alcohol, spicy food, caffeine, and other things that irritate the bladder. ? Are overweight or obese. What are the signs or symptoms? Symptoms of this condition include a sudden, strong urge to urinate. Other symptoms include: ? Leaking urine. ? Urinating 8 or more times a day. ? Waking up to urinate 2 or more times overnight. How is this diagnosed? This condition may be diagnosed based on: ? Your symptoms and medical history. ? A physical exam. ? Blood or urine tests to check for possible causes, such as infection. You may also need to see a health care provider who specializes in urinary tract problems. This is called a urologist. How is this treated? Treatment for overactive bladder depends on the cause of your condition and whether it is mild or severe. Treatment may include: ? Bladder training, such as: ? Learning to control the urge to urinate by following a schedule to urinate at regular intervals. ? Doing Kegel exercises to strengthen the pelvic floor muscles that support your bladder. ? Special devices, such as: ? Biofeedback. This uses sensors to help you become aware of your body's signals. ? Electrical stimulation. This uses electrodes placed inside the body (implanted) or outside the body. These electrodes send gentle pulses of electricity to strengthen the nerves or muscles that control the bladder. ? Women may use a plastic device, called a pessary, that fits into the vagina and supports the bladder. ? Medicines, such as: ? Antibiotics to treat bladder infection. ? Antispasmodics to stop the bladder from releasing urine at the wrong time. ? Tricyclic antidepressants to relax bladder muscles. ? Injections of botulinum toxin type A directly into the bladder tissue to relax bladder muscles. ? Surgery, such as: ? A device may be implanted to help manage the nerve signals that control urination. ? An electrode may be implanted to stimulate electrical signals in the bladder. ? A procedure may be done to change the shape of the bladder. This is done only in very severe cases. Follow these instructions at home: Eating and drinking ? Make diet or lifestyle changes recommended by your health care provider. These may include: ? Drinking fluids throughout the day and not only with meals. ? Cutting down on caffeine or alcohol. ? Eating a healthy and balanced diet to prevent constipation. This may include: ? Choosing foods that are high in fiber, such as beans, whole grains, and fresh fruits and vegetables. ? Limiting foods that are high in fat and processed sugars, such as fried and sweet foods. Lifestyle ? Lose weight if needed. ? Do not use any products that contain nicotine or tobacco. These include cigarettes, chewing tobacco, and vaping devices, such as e-cigarettes. If you need help quitting, ask your health care provider. General instructions ? Take ldqi-vzs-iediqdi and prescription medicines only as told by your health care provider. ? If you were prescribed an antibiotic medicine, take it as told by your health care provider. Do not stop taking the antibiotic even if you start to feel better. ? Use any implants or pessary as told by your health care provider. ? If needed, wear pads to absorb urine leakage. ? Keep a log to track how much and when you drink, and when you need to urinate. This will help your health care (more content not included)...[facility]07-18-2024 NoteEntered by Jenny De Anda CMA on October 10, 2023 14:02:54 EDT From: Jenny De Anda CMA To: [email or web address] Sent: 10/10/2023 14:02:54 EDT Subject: Medication Management Not Approved: duplicate gabapentin (GABAPENTIN CAPS 300MG) TAKE 1 CAPSULE TWICE A DAY Qty: 180 cap(s) Days Supply: 0 Refills: 3 Substitutions Allowed Route To Pharmacy - [email or web address] Signed by Jenny De Anda CMA Patient matched by Jenny De Anda CMA on 10/10/2023 10:12:04 EDT From: [email or web address] To: FARHAD RICE, KARLA Pinzon MD Sent: October 10, 2023 8:42:36 AM CDT Subject: Medication Management Due: October 11, 2023 12:12:54 AM CDT On Hold Pending Signature Drug: gabapentin (gabapentin 300 mg oral capsule), TAKE 1 CAPSULE TWICE A DAY Quantity: 180 cap(s) Days Supply: 0 Refills: 3 Substitutions Allowed Notes from Pharmacy: Dispensed Drug: gabapentin (gabapentin 300 mg oral capsule), TAKE 1 CAPSULE TWICE A DAY Quantity: 180 cap(s) Days Supply: 0 Refills: 3 Substitutions [id number] Note Entered by Jenny De Anda on September 02, 2023 09:00:41 EDT From: Jenny De Anda To: [email or web address] Sent: 09/02/2023 09:00:41 EDT Subject: Medication Management Submitted: Complete:omeprazole (omeprazole 20 mg oral delayed release capsule) Signed by Jenny De Anda 09/02/2023 09:00:00 EDT Approved omeprazole (OMEPRAZOLE DR CAPS 20MG) TAKE 1 CAPSULE DAILY Qty: 90 cap(s) Days Supply: 0 Refills: 3 Substitutions Allowed Route To Pharmacy - [facility] Signed by Jenny De Anda From: [email or web address] To: FARHAD RICE, KARLA Pinzon MD Sent: August 30, 2023 1:13:34 PM CDT Subject: Medication Management Due: August 31, 2023 12:09:26 AM CDT On Hold Pending Signature Drug: omeprazole (omeprazole 20 mg oral delayed release capsule), TAKE 1 CAPSULE DAILY Quantity: 90 cap(s) Days Supply: 0 Refills: 3 Substitutions Allowed Notes from Pharmacy: Dispensed Drug: omeprazole (omeprazole 20 mg oral delayed release capsule), TAKE 1 CAPSULE DAILY Quantity: 90 cap(s) Days Supply: 0 Refills: 3 Substitutions Allowed [id number] NoteENT Ear Irrigation Ear irrigation is a procedure to wash dirt and wax out of your ear canal. This procedure is also called lavage. You may need ear irrigation if you are having trouble hearing because of a buildup of earwax. You may also have ear irrigation as part of the treatment for an ear infection. Getting wax and dirt out of your ear canal can help ear drops work better. Tell a health care provider about: ? Any allergies you have. ? All medicines you are taking, including vitamins, herbs, eye drops, creams, and lsnd-hsv-moqrquj medicines. ? Any problems you or family members have had with anesthetic medicines. ? Any blood disorders you have. ? Any surgeries you have had. This includes any ear surgeries. ? Any medical conditions you have. ? Whether you are or may be . What are the risks? Generally, this is a safe procedure. However, problems may occur, including: ? Infection. ? Pain. ? Hearing loss. ? Fluid and debris being pushed through the eardrum and into the middle ear. This can occur if there are holes in the eardrum. ? Ear irrigation failing to work. What happens before the procedure? ? You will talk with your provider about the procedure and plan. ? You may be given ear drops to put in your ear 15?20 minutes before irrigation. This helps loosen the wax. What happens during the procedure? ? A syringe is filled with water or saline solution, which is made of salt and water. ? The syringe is gently inserted into the ear canal. ? The fluid is used to flush out wax and other debris. The procedure may vary among health care providers and hospitals. What can I expect after the procedure? After an ear irrigation, follow instructions given to you by your health care provider. Follow these instructions at home: Using ear irrigation kits Ear irrigation kits are available for use at home. Ask your health care provider if this is an option for you. In general, you should: ? Use a home irrigation kit only as told by your health care provider. ? Read the package instructions carefully. ? Follow the directions for using the syringe. ? Use water that is room temperature. Do not do ear irrigation at home if you: ? Have diabetes. Diabetes increases the risk of infection. ? Have a hole or tear in your eardrum. ? Have tubes in your ears. ? Have had any ear surgery in the past. ? Have been told not to irrigate your ears. Cleaning your ears ? Clean the outside of your ear with a soft washcloth daily. ? If told by your health care provider, use a few drops of baby oil, mineral oil, glycerin, hydrogen peroxide, or udsq-uuq-lrmbpfu earwax softening drops. ? Do not use cotton swabs to clean your ears. These can push wax down into the ear canal. ? Do not put anything into your ears to try to remove wax. This includes ear candles. General instructions ? Take pkmp-hfh-yhnaimg and prescription medicines only as told by your health care provider. ? If you were prescribed an antibiotic medicine, use it as told by your health care provider. Do not stop using the antibiotic even if your condition improves. ? Keep the ear clean and dry by following the instructions from your health care provider. ? Keep all follow-up visits. This is important. ? Visit your health care provider at least once a year to have your ears and hearing checked. Contact a health care provider if: ? Your hearing is not improving or is getting worse. ? You have pain or redness in your ear. ? You are dizzy. ? You have ringing in your ears. ? You have nausea or vomiting. ? You have fluid, blood, or pus coming out of your ear. Summary ? Ear irrigation is a procedure to wash dirt and wax out of your ear canal. This procedure is also called lavage. ? To perform ear irrigation, ear drops may be put in your ear 15?20 minutes before irrigation. Water or saline solution will be used to flush out earwax and other debris. ? You may be able to irrigate your ears at home. Ask your health care provider if this is an optionfor you. Follow your health care provider's instructions. ? Clean your ears with a soft cloth after irrigation. Do not use cotton swabs to clean your ears. These can push wax down into the ear canal. This information is not intended to replace advice given to you by your health care provider. Make sure you discuss any questions you have with your health care provider. Document Revised: 06/28/2020 Document Reviewed: 06/28/2020 [employer] Patient Education ? 2022 [employer].[id number] Hospital Discharge instructions Patient Education 02/22/2023 11:05:36 Neurogenic Bladder Neurogenic Bladder Neurogenic bladder is a bladder control disorder. It is usually caused by problems with the nerves that control the bladder. The brain sends signals through the spinal cord to the muscles in the bladder that start and stop urine flow. With neurogenic bladder, the nerves and muscles do not work together the way they should. This condition may make the bladder overactive, meaning you have trouble holding urine. In other cases, it may make the bladder underactive. This means that you have trouble passing urine. What are the causes? This condition may be caused by nerve damage or a condition that disrupts the signals from your brain to your bladder. Many things can cause these nerve problems, including: A disease that affects the nervous system, such as: ?Alzheimer's disease. ?Cerebral palsy. ?Multiple sclerosis. ?Diabetes. ?Parkinson's disease. Damage to your brain or spinal cord. This can come from: ?Trauma. ?Tumors. ?Infection. ?Surgery. ?Alcohol abuse. ?Stroke. ?A congenital disability that affects the spinal cord. What increases the risk? You are more likely to develop this condition if you have nerve damage or a nerve disorder. What are the signs or symptoms? Signs and symptoms of this condition include: Leaking or gushing urine (incontinence). A sudden, strong urge to pass urine (urgency). Frequent urination during the day and night. Being unable to empty your bladder completely (urinary retention). Frequent urinary tract infections. How is this diagnosed? This condition may be diagnosed based on: Your symptoms and medical history. A physical exam. Records from a bladder diary. You may be asked to keep a record or log of your bladder symptoms andthe times that you urinate. You may also have tests, such as: A urine test to check for infection. A bladder scan after you urinate to see how much urine is left in your bladder. Tests to measure your urine flow and see how well the flow is controlled (urodynamic tests). A procedure that uses a small device with a camera to look through your urethra into your bladder (cystoscopy). A health care provider who specializes in the urinary tract (urologist) may do this test. Imaging tests of your brain or spine, such as MRI or CT scan. How is this treated? Treatment for this condition depends on the cause and the symptoms that you have. Work closely withyour health care provider to find the treatments that will improve your quality of life. Treatment options include: Learning ways to control when you urinate, such as: ?Urinating at scheduled times. ?Training yourself to delay urination. ?Exercises to strengthen the muscles that control urine flow (Kegel exercises). ?Avoiding foods or drinks that make your symptoms worse. Taking medicines to: ?Stimulate an underactive bladder. ?Relax an overactive bladder. ?Treat a urinary tract infection. Learning how to use a thin tube (catheter) to empty your bladder. A catheter is a hollow tube that you pass through your urethra. Procedures to stimulate the nerves that control your bladder. Surgery, if other treatments do not help. Follow these instructions at home: Lifestyle Keep a bladder diary to find out which foods, liquids, or activities make your symptoms worse. Use your bladder diary to schedule bathroom trips. If you are away from home, plan to be near a bathroom when your schedule says you will need one. Limit beverages that stimulate urination. These include soda, coffee, and tea. After urinating, wait a few minutes and try again. Make sure you urinate just before you leave the house and just before you go to bed. Kegel exercises Do Kegel exercises to strengthen the muscles that control the passing of urine. These muscles are the ones you use to try to hold urine when you need to urinate. To do Kegel exercises: 1.Squeeze your pelvic floor muscles tight, as if you are trying to stop the flow of urine. You should feel a tight lift in your rectal area. If you are female, you should also feel a tightness in your vaginal area. Keep your stomach, buttocks, and legs relaxed. 2.Hold the muscles tight for 5 10 seconds. 3.Relax your muscles for the same amount of time. 4.Repeat 10 times. Repeat this exercise 3 times a day or as many times as told by your health care provider. General instructions Take jjuv-vho-jtvwrhg and prescription medicines only as told by your health care provider. Keep all follow-up visits. This is important. Contact a health care provider if: You are having a hard time controlling your symptoms. Your symptoms are getting worse. You have signs of a urinary tract infection. These may include: ?A burning feeling when you urinate. ?Fever or chills. ?Cloudy or bloody urine. Get help right away if: You cannot pass urine. Summary Neurogenic bladder is a bladder control disorder caused by problems with the nerves that control the bladder. This condition may make the bladder overactive or underactive. This condition may be caused by nerve damage or a condition that disrupts the signals from your brain to your bladder. Treatment depends on the cause of your neurogenic bladder and the symptoms that you have. Work closely with your health care provider to find the treatments that will improve your quality of life. This information is not intended to replace advice given to you by your health care provider. Make sure you discuss any questions you have with your health care provider. Document Revised: 11/24/2020 Document Reviewed: 11/24/2020 [employer] Patient Education 2022 [employer] Follow Up Care 06/08/2022 12:14:57 With:HOUSTON RICE, Stuart Pretty, URL Address: [address] [place] [address] [place] [id number]- When: Unknown [facility] 03-17-2023 Hospital Discharge instructions Patient Education 06/08/2022 11:53:11 Neurogenic Bladder Neurogenic Bladder Neurogenic bladder is a bladder control disorder. It is usually caused by problems with the nerves that control the bladder. Your brain sends signals through your spinal cord to the muscles in your bladder that start and stop urine flow. If you have neurogenic bladder, the nerves and muscles do notwork together the way they should. This condition may make the bladder overactive, meaning you have trouble holding urine. In other cases, it may make the bladder underactive, meaning you have trouble passing urine. What are the causes? This condition may be caused by any kind of nerve damage or condition that disrupts the signals from your brain to your bladder. Many things can cause these nerve problems, including: A disease that affects the nervous system, such as: ?Alzheimer disease. ?Cerebral palsy. ?Multiple sclerosis. ?Diabetes. ?Parkinson disease. Damage to your brain or spinal cord. This can come from: ?Trauma. ?Tumors. ?Infection. ?Surgery. ?Alcohol abuse. ?Stroke. ?A congenital disability that affects the spinal cord. What increases the risk? You are more likely to develop this condition if you have nerve damage or a nerve disorder. What are the signs or symptoms? Signs and symptoms of this condition include: Leaking or gushing urine (incontinence). A sudden, strong urge to pass urine (urgency). Frequent urination during the day and night. Being unable to empty your bladder completely (urinary retention). Frequent urinary tract infections. How is this diagnosed? This condition may be diagnosed based on: Your symptoms and medical history. A physical exam. Results of a bladder diary. You may be asked to keep a record of your bladder symptoms and the times that you urinate. You may also have tests, such as: A urine test to check for infection. A bladder scan after you urinate to see how much urine is left in your bladder. Tests to measure your urine flow and see how well the flow is controlled (urodynamic tests). A procedure that uses a small device with a camera to look through your urethra into your bladder (cystoscopy). A health care provider who specializes in the urinary tract (urologist) may do this test. Imaging tests of your brain or spine, such as MRI or CT. How is this treated? Treatment for this condition depends on the cause and the symptoms that you have. Work closely withyour health care provider to find the treatments that will improve your quality of life. Treatment options include: Learning ways to control when you urinate, such as: ?Urinating at scheduled times. ?Training yourself to delay urination. ?Doing exercises to strengthen the muscles that control urine flow (Kegel exercises). ?Avoiding foods or drinks that make your symptoms worse. Taking medicines to: ?Stimulate an underactive bladder. ?Relax an overactive bladder. ?Treat a urinary tract infection. Learning how to use a thin tube (catheter) to empty your bladder. A catheter is a hollow tube that you pass through your urethra. Procedures to stimulate the nerves that control your bladder. Surgery, if other treatments do not help. Follow these instructions at home: Lifestyle Keep a bladder diary to find out which foods, liquids, or activities make your symptoms worse. Use your bladder diary to schedule bathroom trips. If you are away from home, plan to be near a bathroom when your schedule says you will need one. Limit your drinking of beverages that stimulate urination. These include soda, coffee, and tea. After urinating, wait a few minutes and try again (double voiding). Make sure you urinate just before you leave the house and just before you go to bed. Kegel exercises Do Kegel exercises to strengthen the muscles that control the passing of urine. These muscles are the ones you use to try to hold urine when you need to urinate. To do Kegel exercises: 1.Squeeze your pelvic floor muscles tight, as if you are trying to stop the flow of urine. You should feel a tight lift in your rectal area. If you are female, you should also feel a tightness in your vaginal area. Keep your stomach, buttocks, and legs relaxed. 2.Hold the muscles tight for 5 10 seconds. 3.Relax your muscles for the same amount of time. 4.Repeat 10 times. Repeat this exercise 3 times a day or as many times as told by your health care provider. General instructions Take peqm-loy-amqrnsn and prescription medicines only as told by your health care provider. Keep all follow-up visits as told by your health care provider. This is important. Contact a health care provider if: You are having a hard time controlling your symptoms. Your symptoms are getting worse. You have signs of a urinary tract infection. These may include: ?A burning feeling when you urinate. ?Chills. ?Fever. Get help right away if: You cannot pass urine. Summary Neurogenic bladder is a bladder control disorder caused by problems with the nerves that control the bladder. This condition may make the bladder overactive or underactive. This condition may be caused by any kind of nerve damage or condition that disrupts the signals from your brain to your bladder. Treatment depends on the cause of your neurogenic bladder and the symptoms that you have. Work closely with your health care provider to find the treatments that will improve your quality of life. This information is not intended to replace advice given to you by your health care provider. Make sure you discuss any questions you have with your health care provider. Document Released: 09/22/2007 Document Revised: 03/24/2018 Document Reviewed: 03/24/2018 [employer] Patient Education [employer]. Follow Up Care 03/29/2022 09:40:46 With:Stuart TERRY MD, URL Address: [address] [place], [place] [id number]- When: Unknown [facility] evaluation + Plan note Future Appointments Appointment Date:02/22/2023 10:15:00 AM Scheduled Provider:Stuart TERRY MD Location:[facility] Appointment Type:URO Office Visit [facility] evaluation + Plan note Future Appointments Appointment Date:10/25/2023 10:45:00 AM Scheduled Provider:Stuart TERRY MD Location:[facility] Appointment Type:URO Office Visit [facility] evaluation + Plan note Future Appointments Appointment Date:05/08/2024 11:00:00 AM Scheduled Provider:Stuart TERRY MD Location:[facility] Appointment Type:URO Office Visit [facility] evaluation + Plan note Future Appointments Appointment Date:05/08/2024 11:00:00 AM Scheduled Provider:Stuart TERRY MD Location:[facility] Appointment Type:URO Office Visit Diagnostic Tests Pending * Urine Culture 11/05/23 [facility] Evaluation noteNo assessment information available [facility] Work Phone: Evaluation note* Diagnosis Encounter for screening mammogram for malignant neoplasm of breast Other screening mammogram documented in this encounter [facility] Work Phone: Hospital course Narrative No data available for this section [facility] Hospital Discharge instructions No data available for this section [facility] Progress note No data available for this section [facility] Summary Purpose Family History No Family History Records Found Relationship Condition Age at Onset Recorded Date/T tereso brother Parkinson's disease Unknown father Congestive heart failure Unknown Not Specified Dementia Unknown Advance Directives No Advanced Directives Records FoundNo Advanced Directives Records FoundNo Advanced Directives Records FoundNo Advanced Directives Records FoundNo Advanced Directives Records FoundNo Advanced Directives Records FoundNo Advanced Directives Records Found Reason for Referral Specialty Diagnoses / Procedures Referred By Rosalinda hines Referred To Contact Radiology Diagnoses Encounter for screening mammogram for malignant neoplasm of breast Procedures DAVIN ANOOP DIGITAL SCREEN SELF REFERRAL W OR WO CAD BILATERAL Kylie Florez Referral ID Status Reason Start Date Expiration Date Visits Re quested Visits Authorized [id number] Closed 02/02/2022 02/02/2023 1 1 Additional Source Comments INFORMATION SOURCE (unrecogn ized section and content) DATE CREATED AUTHOR 09/01/2019 [facility] DATE CREATED AUTHOR AUTHOR'S ORGANIZ ATION 04/21/2023 [facility] DATE CREATED AUTHOR AUTHOR'S ORGANIZ ATION 11/07/2023 [facility] DATE CREATED AUTHOR AUTHOR'S ORGANIZ ATION 11/11/2023 [facility] DATE CREATED AUTHOR AUTHOR'S ORGANIZ ATION 11/25/[address] [facility] DATE CREATED AUTHOR AUTHOR'S ORGANIZ ATION 12/19/2023 [facility] DATE CREATED AUTHOR AUTHOR'S ORGANIZ ATION 12/24/2023 [facility] Goals (unrecognized section and content) Goals may be documented in a n alternate section No data available for this section No data available for this section No data available for this section No data available for this section No data available for this section Reason for Visit (unrecogniz ed section and content) Specialty Diagnoses / Procedures Referred By Contac t Referred To Contact Radiology Diagnoses Encounter for screening mammogram for malignant neoplasm of breast Procedures DAVIN ANOOP DIGITAL SCREEN SELF REFERRAL W OR WO CAD BILATERAL Kylie Florez Referral ID Status Reason Start Date Expiration Date Visits Re quested Visits Authorized [id number] Closed 02/02/2022 02/02/2023 1 1 Care Teams (unrecognized sec tion and content) [employer] Relationship Specialty Start Date End Date Kylie Florez PCP - General 09/21/13 FOR RECORDS PERTAINING TO PATIENTS WHO ARE OR HAVE BEEN ENROLLED IN A CHEMICAL DEPENDENCY/SUBSTANCEABUSE PROGRAM, SOME INFORMATION MAY BE OMITTED. This clinical summary was aggregated from multiple sources. Caution should be exercised in using it in the provision of clinical care. This summary normalizes information from multiple sources, and as a consequence, information in this document may materially change the coding, format and clinical context of patient data. In addition, data may be omitted in some cases. CLINICAL DECISIONS SHOULD BE BASED ON THE PRIMARY CLINICAL RECORDS. [employer] provides no warranty or guarantee of the accuracy or completeness of information in this document.
[2023-12-26] MEDS: LACTATED RINGER'S SOLUTION 1,000 ML 50 ML IV (10:32)
[2023-12-26] MEDS: CEFAZOLIN SODIUM 2 GM/50 ML D5W PREMIX IV (11:49)
--- NOTE | 2023-12-26 12:46 | PM.URSON ---
Urology Surgery Operative Note Operative Note Procedure Date: 12/26/23 Time Out Performed: yes Pre-op Diagnosis: Bladder calculus Post-op Diagnosis: same as pre-op Procedures performed: 1. Cystoscopy litholapaxy Anesthesia: General-LMA Primary Surgeon: Stuart Terry Complications: None Estimated blood loss (mL): 5 Findings: 3 cm bladder calculus Specimens: Bladder calculus pieces Drains: 20 Yoruba Soria catheter in the bladder Indications for Procedures: This lady has a neurogenic bladder and does clean intermittent cath. She has developed bladder calculus. It is approximately 3 cm. She now presents for cystoscopy litholapaxy. She has signed an informed consent after risks were explained. Detailed description of Procedure: The patient was brought to the operating room and placed on the operating room table in the supine position. SCDs were placed on the lower extremities and turned on and functioning during the entire case. Timeout was done by all parties in the room. We all agreed upon the patient's identification and the planned procedures for this patient. Genn. anesthesia was then administered. The patient was then repositioned into the modified dorsal lithotomy position. All pressure points were satisfactorily padded. Genitalia were sterilely prepped and draped in usual fashion. I started by passing a 22 Yoruba Olympus cystoscope per urethra and into the bladder. Panendoscopy revealed the large bladder calculus on the floor of the bladder. I then passed a 1000 Angstrom laser fiber through the scope and made contact with the stone. I began doing laser lithotripsy with the thulium laser at 40 W continuously on the fragmenting mode. I was able to crack up this stone very efficiently and into very small pieces. The Ilich evacuator was used to get all the pieces out from the base of the bladder. These were sent for stone analysis. Repeat cystoscopy revealed no evidence of any remaining stone pieces. There was no bleeding at this time. The scope was then removed. I then placed a 20 Yoruba Soria catheter in the bladder. 10 cc of fluid was inflated. It drained clear. She was then transferred to a [facility] bed and wheeled to PACU in stable condition. She will get discharged to home later today with a prescription for Augmentin 500 mg twice daily #10
--- NOTE | 2023-12-26 14:20 | PC.NURSE ---
Soria catheter teaching was provided to patient. Patient and spouse state that they have both had home going catheters in the past. Overnight bag provided and reminded patient how to connect this device. Patient and spouse voice understanding.
== END 2023-12-26 14:10 | disposition home or self-care (01) ==
PROVIDERS: Visit Provider Urology
PROC: (CPT 52318; principal; 2023-12-26 10:35)
DX: N21.0 Calculus in bladder (principal); N31.9 Neuromuscular dysfunction of bladder, unspecified; I10 Essential (primary) hypertension; Z90.710 Acquired absence of both cervix and uterus
CPT/HCPCS: 52318; 36415; 82365; 99999; J0690; J1100; J2250; J2405; J2704; J3010